=== PATIENT | male | born 1960 | race Caucasian/White ===

== ENCOUNTER → 2017-10-04 09:43 | Outpatient (CLI) | payer OTHER, SELFPAY ==
--- NOTE | 2017-10-04 09:51 | XR_ITS ---
XR chest 2V HISTORY: ITS.REASON: COUGH,COPD,CAD,TOB. USE ORDERING PHYSICIAN: López Woods MD PATIENT AGE: 57 years COMPARISON: 11/11/2016 FINDINGS: The cardiomediastinal silhouette and pulmonary vascularity are within normal limits. The lungs are clear without infiltrates, suspicious nodules, or pleural effusions. There is chronic blunting of the right CP angle. Changes of COPD No acute bony abnormalities. IMPRESSION: No change with no acute finding Chronic change with COPD and blunting of the right CP angle
== END ==
PROVIDERS: PCP Nurse Practitioner Family; Visit Provider Internal Medicine
DX: R05 Cough (principal); J44.9 Chronic obstructive pulmonary disease, unspecified; I25.10 Atherosclerotic heart disease of native coronary artery without angina pectoris; Z72.0 Tobacco use; R09.89 Other specified symptoms and signs involving the circulatory and respiratory systems
CPT/HCPCS: 71046

== ENCOUNTER → 2018-01-03 08:49 | Outpatient (CLI) | payer OTHER, SELFPAY ==
[2018-01-03 11:21] LABS: Alanine Aminotransferase 38 U/L (12-78); Albumin Level 3.8 gm/dL (3.4-5.0); Aspartate Amino Transferase 26 U/L (15-37); Bilirubin,Direct 0.2 mg/dL (0.0-0.2); Bilirubin,Indirect 0.3 mg/dL (0.0-0.9); Bilirubin,Total 0.5 mg/dL (0.2-1.0); Cholesterol 131 mg/dL (140-200); HDL Cholesterol 27 mg/dL (27-67); LDL Cholesterol 67 mg/dL (0-130); Total Protein,Serum 7.5 gm/dL (6.4-8.2); Triglycerides 185 mg/dL (30-200); VLDL Cholesterol 37 mg/dL (0-40)
[2018-01-03 11:22] LABS: Alkaline Phosphatase 89 U/L (46-116); Chol/HDL Ratio 4.9 (1-3.5)
== END ==
PROVIDERS: Visit Provider Internal Medicine
DX: I25.10 Atherosclerotic heart disease of native coronary artery without angina pectoris (principal)
CPT/HCPCS: 36415; 80061; 80076

== ENCOUNTER → 2018-03-13 07:53 | Outpatient (CLI) | payer OTHER, SELFPAY ==
[2018-03-13 08:27] LABS: Basophils # 0.1 K/mm3 (0-0.2); Eosinophils # 0.4 K/mm3 (0.0-0.4); Eosinophils % 3.1 % (0.1-12.0); Hematocrit 54.3 % (42.0-52.0); Hemoglobin 17.5 g/dL (14.1-18.0); Lymphocytes # 5.3 K/mm3 (0.7-4.5); Lymphocytes % 44.3 K/mm3 (10-50); Mean Corpuscular HGB Conc 32.2 g/dL (31.8-35.4); Mean Corpuscular Hemoglobin 29.7 pg (27.0-31.2); Mean Corpuscular Volume 92.3 fl (80-94); Mean Platelet Volume 7.3 fl (7.4-10.4); Monocytes # 0.7 K/mm3 (0.1-1.0); Monocytes % 6.2 % (1.7-9.3); Neutrophils # 5.4 K/mm3 (1.8-7.8); Neutrophils % 45.5 % (37.0-80.0); Platelet Count 230 K/mm3 (142-424); Red Blood Count 5.88 M/mm3 (4.60-6.20); Red Cell Distribution Width 14.6 % (11.5-17.5); White Blood Count 11.9 K/mm3 (4.8-10.8)
[2018-03-13 08:41] LABS: Hemoglobin A1C 7.3 % (0.0-7.0)
[2018-03-13 09:53] LABS: Alanine Aminotransferase 36 U/L (12-78); Albumin Level 3.6 gm/dL (3.4-5.0); Alkaline Phosphatase 88 U/L (46-116); Anion Gap 12.9 mEq/L (5-15); Aspartate Amino Transferase 18 U/L (15-37); Bilirubin,Total 0.5 mg/dL (0.2-1.0); Blood Urea Nitrogen 26 mg/dL (7-18); Calcium 9.4 mg/dL (8.5-10.1); Carbon Dioxide 29 mmol/L (21.0-32.0); Chloride 108 mmol/L (98-107); Creatinine,Serum 1.12 mg/dL (0.70-1.30); Estimated Glomerular Filt Rate 68 ml/min (>60); GFR (African American) 82 ML/MIN (>60); Globulin 3.5 gm/dl (1.3-3.2); Glucose 134 mg/dL (74-106); Potassium 4.9 mmoL/L (3.5-5.1); Sodium 145 mmol/L (136-145); Thyroid Stimulating Hormone 1.59 uIU/ml (0.358-3.740); Total Protein,Serum 7.1 gm/dL (6.4-8.2)
[2018-03-14 19:22] LABS: Microalbumin, Urine 16.2 ug/mL (Not Estab.)
[2018-03-15 06:34] LABS: Vitamin D 25 Hydroxy 32.7 ng/mL (30.0-100.0)
== END ==
PROVIDERS: Visit Provider Nurse Practitioner Family
DX: E11.8 Type 2 diabetes mellitus with unspecified complications (principal)
CPT/HCPCS: 36415; 80053; 82043; 82652; 83036; 84436; 84443; 85025

== ENCOUNTER → 2018-04-14 09:35 | Outpatient (CLI) | payer OTHER, SELFPAY ==
--- NOTE | 2018-04-14 09:37 | XR_ITS ---
XR foot wt bearing RT 3V HISTORY: ITS.REASON: pain ORDERING PHYSICIAN: Natalie Deleon DPM PATIENT AGE: 57 years COMPARISON: None FINDINGS: There are mild osteoarthritic changes of the first interphalangeal joint with mild bony hypertrophy. Normal alignment. No fracture or dislocation or other significant anomalies. 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
--- NOTE | 2018-04-14 09:37 | XR_ITS ---
XR foot wt bearing LT 3V HISTORY: ITS.REASON: pain ORDERING PHYSICIAN: Natalie Deleon DPM PATIENT AGE: 57 years COMPARISON: None FINDINGS: No fracture or dislocation. No lytic or blastic change. There is normal mineralization.. Minimal osteoarthritic changes are present at the first metatarsal tarsal joint. Lordotic density involving the anterior aspect of the calcaneus at 9 mm and may be due to a bone island. Small calcaneal spur and kidneys and there is a fight is present. There is normal alignment. IMPRESSION: 1. Minimal osteoarthritic change of the first metatarsal tarsal joint. 2. Bone island of the calcaneus
== END ==
PROVIDERS: Visit Provider Podiatrist
DX: M79.673 Pain in unspecified foot (principal)
CPT/HCPCS: 73630

== ENCOUNTER → 2018-05-03 09:34 | Outpatient (CLI) | payer OTHER, SELFPAY ==
--- NOTE | 2018-05-03 09:37 | US_ITS ---
US Arterial Ankle Brachial Ind History: Bilateral rest pain, bilateral claudication ITS.REASON: Skin Changes, diabetes, hyperlipidemia, peripheral vascular disease ORDERING PHYSICIAN: Natalie Deleon DPM PATIENT AGE: 57 years COMPARISON: 04/26/2017 TECHNIQUE: Segmental pressures obtained of both right and left leg. These are compared to brachial blood pressure to yield index at each level sampled including summary ERNST. The data sheets from the procedure are available in PACS FINDINGS Rest study only performed today No prior studies available for comparison. Blood pressures reported are in millimeters mercury. RIGHT LEG ERNST = 1.0. RIGHT LEG TBI=0.9 Brachial BP: 130 Thigh BP: 120 Calf BP: 160 Ankle PT: 127 Ankle DP : 102 Digit =120 LEFT LEG ERNST = 0.9 LEFT LEG TBI= 0.8 Brachial BPD: 130 Thigh BP: 173 Calf BP: 128 Ankle PT:122 Ankle DP: 113 Digit = 98 Pulses and waveforms: Normal IMPRESSION: The ABIs as reported above are within normal limits. Waveforms and pulses are also unremarkable. Overall no significant change from the previous exam
== END ==
PROVIDERS: PCP Nurse Practitioner Family; Visit Provider Podiatrist
DX: R68.89 Other general symptoms and signs (principal); R23.9 Unspecified skin changes
CPT/HCPCS: 93922

== ENCOUNTER → 2018-05-30 07:46 | Outpatient (CLI) | payer OTHER, SELFPAY ==
[2018-05-30 08:01] LABS: Basophils # 0.1 K/mm3 (0-0.2); Eosinophils # 0.4 K/mm3 (0.0-0.4); Eosinophils % 2.6 % (0.1-12.0); Hematocrit 52.7 % (42.0-52.0); Hemoglobin 17.3 g/dL (14.1-18.0); Lymphocytes # 4.7 K/mm3 (0.7-4.5); Lymphocytes % 34.3 K/mm3 (10-50); Mean Corpuscular HGB Conc 32.8 g/dL (31.8-35.4); Mean Corpuscular Hemoglobin 30.8 pg (27.0-31.2); Mean Corpuscular Volume 93.8 fl (80-94); Mean Platelet Volume 7.2 fl (7.4-10.4); Monocytes # 0.8 K/mm3 (0.1-1.0); Monocytes % 6.1 % (1.7-9.3); Neutrophils # 7.7 K/mm3 (1.8-7.8); Neutrophils % 56.1 % (37.0-80.0); Platelet Count 248 K/mm3 (142-424); Red Blood Count 5.62 M/mm3 (4.60-6.20); Red Cell Distribution Width 14.4 % (11.5-17.5); White Blood Count 13.7 K/mm3 (4.8-10.8)
== END ==
PROVIDERS: PCP Nurse Practitioner Family; Visit Provider Nurse Practitioner Family
DX: R06.00 Dyspnea, unspecified (principal)
CPT/HCPCS: 36415; 85025

== ENCOUNTER → 2018-06-14 14:15 | Outpatient (REF) | payer OTHER, SELFPAY ==
[2018-06-14 20:41] LABS: Basophils # 0.1 K/mm3 (0-0.2); Eosinophils # 0.2 K/mm3 (0.0-0.4); Eosinophils % 1.8 % (0.1-12.0); Hematocrit 50.9 % (42.0-52.0); Hemoglobin 17.1 g/dL (14.1-18.0); Lymphocytes # 4.4 K/mm3 (0.7-4.5); Lymphocytes % 39.8 K/mm3 (10-50); Mean Corpuscular HGB Conc 33.5 g/dL (31.8-35.4); Mean Corpuscular Hemoglobin 31.7 pg (27.0-31.2); Mean Corpuscular Volume 94.5 fl (80-94); Mean Platelet Volume 8.8 fl (7.4-10.4); Monocytes # 0.8 K/mm3 (0.1-1.0); Neutrophils # 5.6 K/mm3 (1.8-7.8); Neutrophils % 50.4 % (37.0-80.0); Platelet Count 259 K/mm3 (142-424); Red Blood Count 5.38 M/mm3 (4.60-6.20); Red Cell Distribution Width 14.3 % (11.5-17.5)
== END ==
LOC: LAB 14:15
PROVIDERS: PCP Physician Assistant; Visit Provider Physician Assistant
DX: I11.9 Hypertensive heart disease without heart failure (principal); I25.10 Atherosclerotic heart disease of native coronary artery without angina pectoris
CPT/HCPCS: 85025

== ENCOUNTER → 2018-07-11 07:43 | Outpatient (CLI) | payer OTHER, SELFPAY ==
[2018-07-11 09:19] LABS: Anion Gap 13.1 mEq/L (5-15); Blood Urea Nitrogen 25 mg/dL (7-18); Calcium 9.1 mg/dL (8.5-10.1); Carbon Dioxide 29 mmol/L (21.0-32.0); Chloride 98 mmol/L (98-107); Creatinine,Serum 1.07 mg/dL (0.70-1.30); Estimated Glomerular Filt Rate 71 ml/min (>60); GFR (African American) 87 ML/MIN (>60); Potassium 4.1 mmoL/L (3.5-5.1); Sodium 136 mmol/L (136-145)
[2018-07-11 10:05] LABS: Glucose 245 mg/dL (74-106)
== END ==
PROVIDERS: Visit Provider Urology
DX: I51.9 Heart disease, unspecified (principal)
CPT/HCPCS: 36415; 80048

== ENCOUNTER → 2018-10-20 07:27 | Outpatient (CLI) | payer OTHER, SELFPAY ==
[2018-10-20 08:02] LABS: Basophils # 0.1 K/mm3 (0-0.2); Basophils % 1.4 % (0.1-2.0); Eosinophils # 0.3 K/mm3 (0.0-0.4); Eosinophils % 3.1 % (0.1-12.0); Hematocrit 50.8 % (42.0-52.0); Hemoglobin 17.2 g/dL (14.1-18.0); Lymphocytes # 4.4 K/mm3 (0.7-4.5); Lymphocytes % 46.2 % (10-50); Mean Corpuscular HGB Conc 33.8 g/dL (31.8-35.4); Mean Corpuscular Volume 91.7 fl (80-94); Mean Platelet Volume 7.2 fl (7.4-10.4); Monocytes # 0.6 K/mm3 (0.1-1.0); Monocytes % 6.7 % (1.7-9.3); Neutrophils # 4.1 K/mm3 (1.8-7.8); Neutrophils % 42.7 % (37.0-80.0); Platelet Count 256 K/mm3 (142-424); Red Blood Count 5.54 M/mm3 (4.60-6.20); Red Cell Distribution Width 14.2 % (11.5-17.5); White Blood Count 9.5 K/mm3 (4.8-10.8)
[2018-10-20 09:04] LABS: Hemoglobin A1C 8.9 % (0.0-7.0)
[2018-10-20 09:07] LABS: Albumin Level 3.7 gm/dL (3.4-5.0); Alkaline Phosphatase 84 U/L (46-116); Anion Gap 11.3 mEq/L (5-15); Aspartate Amino Transferase 21 U/L (15-37); Bilirubin,Total 0.4 mg/dL (0.2-1.0); Blood Urea Nitrogen 23 mg/dL (7-18); Calcium 9.5 mg/dL (8.5-10.1); Carbon Dioxide 31 mmol/L (21.0-32.0); Chloride 101 mmol/L (98-107); Chol/HDL Ratio 6.1 (1-3.5); Cholesterol 176 mg/dL (140-200); Creatinine,Serum 1.16 mg/dL (0.70-1.30); Estimated Glomerular Filt Rate 65 ml/min (>60); GFR (African American) 79 ML/MIN (>60); Globulin 3.7 gm/dl (1.3-3.2); Glucose 172 mg/dL (74-106); HDL Cholesterol 29 mg/dL (27-67); Sodium 139 mmol/L (136-145); T4 (Thyroxine) 7.6 ug/dl (4.7-13.3); Thyroid Stimulating Hormone 1.83 uIU/ml (0.358-3.740); Total Protein,Serum 7.4 gm/dL (6.4-8.2)
[2018-10-20 09:08] LABS: Triglycerides 494 mg/dL (30-200)
[2018-10-20 09:12] LABS: Alanine Aminotransferase 55 U/L (12-78); Potassium 4.3 mmoL/L (3.5-5.1)
[2018-10-21 11:03] LABS: PSA, Free 0.19 ng/mL; Prostate Specific Ag 0.5 ng/mL (0.0-4.0); Vitamin D 25 Hydroxy 28.5 ng/mL (30.0-100.0)
[2018-10-21 11:04] LABS: Microalbumin, Urine 10.4 ug/mL (Not Estab.)
== END ==
PROVIDERS: Visit Provider Physician Assistant
DX: E11.9 Type 2 diabetes mellitus without complications (principal); Z12.5 Encounter for screening for malignant neoplasm of prostate; Z79.84 Long term (current) use of oral hypoglycemic drugs
CPT/HCPCS: 36415; 80053; 80061; 82043; 82652; 83036; 84153; 84154; 84436; 84443; 85025

== ENCOUNTER → 2018-11-20 12:35 | Outpatient (CLI) | payer OTHER, SELFPAY ==
[2018-11-20 12:36] LABS: Adenovirus F 40/41, stool Not Detected (NotDetected); Astrovirus Not Detected (NotDetected); Campylobacter Not Detected (NotDetected); Clostridium Difficile A/B, PCR Not Detected (NotDetected); Cryptosporidium Not Detected (NotDetected); Cyclospora Cayetanesis Not Detected (NotDetected); Entamoeba histolytica Not Detected (NotDetected); Enteroaggregative E coli Not Detected (NotDetected); Enteropathogenic E coli Not Detected (NotDetected); Enterotoxigenic E coli Not Detected (NotDetected); Giardia lamblia Not Detected (NotDetected); Norovirus Not Detected (NotDetected); Plesimonas Shigalloides, PCR Not Detected (NotDetected); Rotavirus A Not Detected (NotDetected); Salmonella, PCR Not Detected (NotDetected); Sapovirus Not Detected (NotDetected); Shiga-like toxin E coli Not Detected (NotDetected); Shigella Enterovasive E coli Not Detected (NotDetected); Vibrio Cholerae Not Detected (NotDetected); Vibrio, PCR Not Detected (NotDetected); Yersinia Entercolitica, PCR Not Detected (NotDetected)
== END ==
PROVIDERS: Visit Provider Nurse Practitioner Family
DX: R19.7 Diarrhea, unspecified (principal)
CPT/HCPCS: 87507

== ENCOUNTER → 2018-12-15 12:27 | Outpatient (CLI) | payer OTHER, SELFPAY ==
--- NOTE | 2018-12-15 12:35 | XR_ITS ---
XR ribs BI min 4V w CXR1V Ordering Physician: Roque Serrano APRN Patient Age: 58 years: Male HISTORY: ITS.REASON: rib pain Injury to left ribs coffee 2 weeks ago now has injury to right ribs coffee past 2 days. Thus Bilateral ribs TECHNIQUE: Oblique views of both right and left ribs performed along with frontal view chest above and below diaphragm COMPARISON :Previous 11/30/2018 CXR FINDINGS LEFT RIBS appear intact and stable with no acute fracture evident. No changes previous studies. The slight undulation at the costochondral junctions at lower ribs appears stable and overall within normal limits. RIGHT RIBS. Similar findings at the right ribs with very slight undulation of the lower rib and at costochondral junctions,; at the transition from bone to cartilage . Surprising similar appearance to what was seen on the left. . No discrete acute fracture at right ribs. No rib lesion. CXR a stable. The underlying lung frias are well expanded and clear with no pneumothorax nor pleural effusion. No active cardiopulmonary disease. Heart, sandip, and mediastinal structures satisfactory as well. Slight blunting right CP angle reflecting some mild chronic pleural changes similar to previous September 2017 CXR IMPRESSION: Ribs intact bilaterally. No recent nor acute rib fractures evident Slight blunting right CP angle reflects chronic pleural changes stable since September 2017 . Lungs clear otherwise with no active disease .
== END ==
PROVIDERS: PCP Emergency Medicine; Visit Provider Nurse Practitioner Family
DX: R07.81 Pleurodynia (principal)
CPT/HCPCS: 71111

== ENCOUNTER → 2019-01-10 13:39 | Outpatient (CLI) | payer OTHER, SELFPAY ==
[2019-01-10 13:58] LABS: Basophils # 0.1 K/mm3 (0-0.2); Basophils % 1.1 % (0.1-2.0); Eosinophils # 0.3 K/mm3 (0.0-0.4); Eosinophils % 3.1 % (0.1-12.0); Hematocrit 48.8 % (42.0-52.0); Hemoglobin 16.2 g/dL (14.1-18.0); Lymphocytes % 39.7 % (10-50); Mean Corpuscular HGB Conc 33.3 g/dL (31.8-35.4); Mean Corpuscular Hemoglobin 30.8 pg (27.0-31.2); Mean Corpuscular Volume 92.4 fl (80-94); Mean Platelet Volume 8.1 fl (7.4-10.4); Monocytes # 0.7 K/mm3 (0.1-1.0); Monocytes % 6.6 % (1.7-9.3); Neutrophils % 49.5 % (37.0-80.0); Platelet Count 286 K/mm3 (142-424); Red Blood Count 5.28 M/mm3 (4.60-6.20); Red Cell Distribution Width 14.2 % (11.5-17.5)
[2019-01-10 15:07] LABS: Alanine Aminotransferase 71 U/L (12-78); Albumin Level 3.9 gm/dL (3.4-5.0); Albumin/Globulin Ratio 1.1 (1.1-1.8); Alkaline Phosphatase 88 U/L (46-116); Anion Gap 14.5 mEq/L (5-15); Aspartate Amino Transferase 24 U/L (15-37); Bilirubin,Total 0.4 mg/dL (0.2-1.0); Blood Urea Nitrogen 19 mg/dL (7-18); Calcium 9.3 mg/dL (8.5-10.1); Carbon Dioxide 28 mmol/L (21.0-32.0); Chloride 102 mmol/L (98-107); Chol/HDL Ratio 4.6 (1-3.5); Cholesterol 137 mg/dL (140-200); Creatinine,Serum 1.15 mg/dL (0.70-1.30); Estimated Glomerular Filt Rate 66 ml/min (>60); GFR (African American) 79 ML/MIN (>60); Globulin 3.7 gm/dl (1.3-3.2); Glucose 151 mg/dL (74-106); HDL Cholesterol 30 mg/dL (27-67); LDL Cholesterol 65 mg/dL (0-130); Potassium 4.5 mmoL/L (3.5-5.1); Sodium 140 mmol/L (136-145); T4 (Thyroxine) 6.5 ug/dl (4.7-13.3); Thyroid Stimulating Hormone 1.73 uIU/ml (0.358-3.740); Total Protein,Serum 7.6 gm/dL (6.4-8.2); Triglycerides 211 mg/dL (30-200); VLDL Cholesterol 42 mg/dL (0-40)
[2019-01-10 16:16] LABS: Hemoglobin A1C 9.4 % (0.0-7.0)
[2019-01-11 10:51] LABS: Vitamin D 25 Hydroxy 45.8 ng/mL (30.0-100.0)
== END ==
PROVIDERS: Visit Provider Physician Assistant
DX: E11.9 Type 2 diabetes mellitus without complications (principal); Z79.84 Long term (current) use of oral hypoglycemic drugs; E55.9 Vitamin D deficiency, unspecified
CPT/HCPCS: 80053; 80061; 82652; 83036; 84436; 84443; 85025

== ENCOUNTER → 2019-02-16 06:41 | Outpatient (CLI) | payer OTHER, SELFPAY ==
--- NOTE | 2019-02-16 06:43 | CA_ITS ---
PROCEDURE: 2-D M-mode and color Doppler study INDICATIONS FOR THE TEST: Chest pain COPD+ Heart Murmur Tobacco SmokingEX Palpitations Fatigue Syncope Edema Hypertension Diabetes Mellitus+ Rheumatic Fever SOB FABIAN+Obesity+Hyperlipidemia+ Family History HD+ Additional History PAD definity utilized PATIENT INFORMATION HEIGHT: 72 WEIGHT: 290 GENDER: Male B/P: 143/87 2-D/M-MODE INTERPRETATION: 2-D MEASUREMENTS OBSERVED VALUES IN CMS Right Ventricular Dimension (RVDd) 2.4 Interventricular Septum (Thickness)(IVsd) 1.0 Left Ventricular Internal Dimensions(LVIDd) 4.7 Left Ventricular Posterior Wall (Thickness)(LVPWd) 1.0 Aortic Root 3.1 Aortic Cusp Separation 2.2 Left Atrial Dimensions (LAD) 4.0 2D 1. Left atrium is mildly enlarged, left ventricle is normal size, there is no concentric left ventricular hypertrophy, visually estimated ejection fraction 50%, there appears to be a discrete wall motion abnormality involving the small area of anterolateral wall. Definity contrast was utilized to delineate endocardial surfaces. There is no left ventricular thrombus seen. 2. The right atrium and right ventricle are normal size and contractility. 3. The aortic valve is minimally thickened and fibrosed. 4. The mitral and tricuspid valve leaflets are minimally thickened. 5. The pulmonic valve is poorly visualized. 6. No significant pericardial effusion noted. DOPPLER INTERROGATION: Doppler interrogation of the aortic, mitral and tricuspid valvular presence of mild mitral and tricuspid regurgitation, tricuspid regurgitation jet velocity is inadequate for calculation of the right ventricular systolic pressure, grade 1 diastolic dysfunction seen with tissue Doppler evidence of raised left atrial pressure. CONCLUSION: 1. Mildly enlarged left atrium, normal left ventricular size, visually estimated ejection fraction 50% with segmental wall motion abnormality described above, Definity contrast was utilized to delineate endocardial surfaces, there is no left ventricular thrombus seen, grade 1 diastolic dysfunction seen with tissue Doppler evidence of raised left atrial pressure. 2. Mild mitral and tricuspid regurgitation 3. No significant pericardial effusion noted.
--- NOTE | 2019-02-16 06:44 | NM_ITS ---
CARDIOLITE SPECT MYOCARDIAL PERFUSION LEXISCAN, REST AND STRESS: History: Oriented disease, obesity, hypertension, diabetes, hyperlipidemia, chest pain, shortness of breath Procedure: Patient received a 0.4 mg of intravenous Lexiscan, resting heart rate was 72 bpm resting blood pressure 131/75, Lexiscan maximum heart rate achieved was 100 bpm which is less than 85% of the maximum predicted heart rate and a blood pressure was 150/84. With Lexiscan patient complained of shortness of breath. Electrocardiogram: Resting echocardiogram showed sinus rhythm left atrial enlargement, with Lexiscan there is less than 1.[address] segment depression noted from the baseline EKG. Cardiac stress and resting SPECT images: Cardiac stress and resting SPECT images were obtained using technetium 99 sestamibi 32.4 mCi stress and 9.9 mCi at rest. Gated SPECT further analysis of segmental wall motion and calculation of the ejection fraction also done. Cardiac stress and the suspect images show decreased tracer activity in the inferior and posterobasal wall, which improves on resting images suggestive of reversible ischemia, computer derived ejection fraction 59% with moderate inferior wall hypokinesis. Right ventricle is normal size and contractility. Conclusion: 1. The EKG portion of the Lexiscan Myoview is nondiagnostic. 2. Scintigraphic evidence of reversible ischemia involving the inferior and posterobasal wall, computer derived ejection fraction is 59% with segmental wall motion abnormality described above, right ventricle is normal size and contractility. 3. Abnormal Lexiscan Myoview study.
--- NOTE | 2019-02-16 07:17 | HMH.ITSHM ---
Current Home Medications as stated by this patient Daljit Hernandez or payable representative. []BREO VENTELIN FISH OIL MULTIVITAMIN METFORMIN JANUVIA GLIPIZIDE PRASUGREL VITAMIN D2 FUROSEMIDE METOPROLOL LISINOPRIL CARTIA ATORVASTATIN ASA OMEPRAZOLE
== END ==
PROVIDERS: PCP Emergency Medicine; Visit Provider Internal Medicine
DX: I25.10 Atherosclerotic heart disease of native coronary artery without angina pectoris (principal); R06.09 Other forms of dyspnea; R07.9 Chest pain, unspecified; I11.9 Hypertensive heart disease without heart failure
CPT/HCPCS: 78452; 93017; 93306; A9502; J2785

== ENCOUNTER → 2019-05-07 09:50 | Outpatient (CLI) | payer OTHER, SELFPAY ==
--- NOTE | 2019-05-07 09:58 | ECG_ITS ---
APPROVED REPORT Exam: Resting ECG HR:65 bpm ECG Measurements Heart Rate 65 AXES AL 194 P 59 QRSd 62 QRS 41 QT 406 T 64 QTc 422 <Conclusion> Normal sinus rhythm Low voltage QRS Borderline ECG Electronically signed by : Dalton Higgins, 05/07/2019 16:15:30
== END ==
PROVIDERS: PCP Emergency Medicine; Visit Provider Surgery
DX: K81.1 Chronic cholecystitis (principal)
CPT/HCPCS: 93005

== ENCOUNTER → 2019-09-10 11:07 | Outpatient (CLI) | payer OTHER, SELFPAY ==
--- NOTE | 2019-09-10 11:12 | XR_ITS ---
PROCEDURE: XR CHEST 2V CLINICAL HISTORY: cough, congestion COMPARISON: CXR2V XR chest 2V from 10/04/2017 [id number] XR ribs LT min 3V w CXR1V from 11/30/2018 CXR2V XR chest 2V from 11/30/2018 [id number] XR ribs BI min 4V w CXR1V from 12/15/2018 FINDINGS: The cardiomediastinal silhouette and pulmonary vascularity are within normal limits. There is chronic blunting of the right CP angle. Lungs are otherwise clear. No lobar consolidation or collapse. No acute bony abnormalities. IMPRESSION: Chronic blunting of the right CP angle. No change with no acute finding Dictated by: Chapito Hinton MD 09/10/2019 16:23 Electronically signed by Chpaito Hinton MD in [place] 09/10/2019 16:23
== END ==
PROVIDERS: PCP Physician Assistant; Visit Provider Physician Assistant
DX: R05 Cough (principal)
CPT/HCPCS: 71046

== ENCOUNTER → 2019-09-24 13:35 | Outpatient (CLI) | payer OTHER, SELFPAY ==
[2019-09-24 14:20] LABS: Alanine Aminotransferase 67 U/L (12-78); Albumin Level 3.7 gm/dL (3.4-5.0); Albumin/Globulin Ratio 1.1 (1.1-1.8); Alkaline Phosphatase 82 U/L (46-116); Anion Gap 17.2 mEq/L (5-15); Aspartate Amino Transferase 30 U/L (15-37); Bilirubin,Total 0.4 mg/dL (0.2-1.0); Blood Urea Nitrogen 26 mg/dL (7-18); Calcium 9.3 mg/dL (8.5-10.1); Carbon Dioxide 27 mmol/L (21.0-32.0); Chloride 101 mmol/L (98-107); Cholesterol 204 mg/dL (140-200); Estimated Glomerular Filt Rate 62 ml/min (>60); GFR (African American) 75 ML/MIN (>60); Globulin 3.5 gm/dl (1.3-3.2); Glucose 163 mg/dL (74-106); HDL Cholesterol 34 mg/dL (27-67); LDL Cholesterol 100 mg/dL (0-130); Potassium 4.2 mmoL/L (3.5-5.1); Sodium 141 mmol/L (136-145); T4 (Thyroxine) 8.9 ug/dl (4.7-13.3); Thyroid Stimulating Hormone 1.45 uIU/ml (0.358-3.740); Total Protein,Serum 7.2 gm/dL (6.4-8.2); Triglycerides 348 mg/dL (30-200); VLDL Cholesterol 70 mg/dL (0-40)
[2019-09-24 14:23] LABS: Basophils # 0.1 K/mm3 (0-0.2); Eosinophils # 0.3 K/mm3 (0.0-0.4); Eosinophils % 2.3 % (0.1-12.0); Hematocrit 52.2 % (42.0-52.0); Lymphocytes # 4.8 K/mm3 (0.7-4.5); Lymphocytes % 38.3 % (10-50); Mean Corpuscular HGB Conc 32.5 g/dL (31.8-35.4); Mean Corpuscular Hemoglobin 29.4 pg (27.0-31.2); Mean Corpuscular Volume 90.5 fl (80-94); Mean Platelet Volume 8.7 fl (7.4-10.4); Monocytes # 0.7 K/mm3 (0.1-1.0); Monocytes % 5.8 % (1.7-9.3); Neutrophils # 6.6 K/mm3 (1.8-7.8); Neutrophils % 52.6 % (37.0-80.0); Platelet Count 246 K/mm3 (142-424); Red Blood Count 5.77 M/mm3 (4.60-6.20); Red Cell Distribution Width 14.8 % (11.5-17.5); White Blood Count 12.5 K/mm3 (4.8-10.8)
[2019-09-24 14:55] LABS: Hemoglobin A1C 8.8 % (0.0-7.0)
[2019-09-26 10:47] LABS: Vitamin D 25 Hydroxy 50.5 ng/mL (30.0-100.0)
== END ==
PROVIDERS: Visit Provider Physician Assistant
DX: E11.9 Type 2 diabetes mellitus without complications (principal); Z79.84 Long term (current) use of oral hypoglycemic drugs; Z79.899 Other long term (current) drug therapy
CPT/HCPCS: 80053; 80061; 82043; 82652; 83036; 84436; 84443; 85025

== ENCOUNTER 2020-02-05 07:42 | Day surgery (SDC) | payer OTHER, SELFPAY ==
[2020-02-05] VITALS (13 sets, daily range): BP systolic 107–186; BP diastolic 71–102; PULSE 67–79; RESP 18–20; TEMP 36.6–36.8; O2SAT 90–96; BMI 41.1
--- NOTE | 2020-02-05 07:08 | IR_ITS ---
APPROVED REPORT Patient Location: Outpatient Web Engineer: ALEKSANDR Turner RT (R) PROCEDURES Left heart catheterization Left ventriculogram Selective coronary angiogram Drug-eluting stent deployment to the mid and distal dominant right coronary INDICATION Coronary artery disease, High risk abnormal Myoview, Recurrent angina pectoris Informed consent was obtained prior to the procedure. COMPLICATIONS None Estimated Blood Loss: less than 10 ml TECHNIQUE One percent lidocaine was used to anesthetize the right groin. The right femoral artery was accessed via the Seldinger technique. A 4-Filipino sheath was placed in the right femoral artery. The JL-4 and JR-4 catheter was also used to perform left heart catheterization left ventriculogram and selective coronary angiogram. At the end of the diagnostic procedure therapeutic heparin was administered giving a therapeutic ACT. The 4 Filipino sheath was exchanged for a 6 Filipino sheath and a JR4 guide catheter was used to intubate the right coronary artery followed by a Choice PT extra-support wire. A 3 mm x 38 mm resolute samira stent was deployed at 22 bladimir reducing the severe stenosis to 0%. JONATHAN-3 flow was present before and after the procedure. At the end of the procedure the apparatus was removed the groin was reprepped gloves were changed sheath was removed good hemostasis was achieved using Perclose device patient was transferred to the postop holding in stable condition ANGIOGRAPHIC RESULTS The left main artery Normal The left anterior descending artery Has proximal and mid vessel mild 10 to 20% calcified stenoses The circumflex artery Is nondominant and has proximal sequential 30% eccentric stenoses The right coronary artery Is a large dominant vessel and has a stent in its proximal through mid segment. The midportion of the stent has 50% concentric in-stent restenosis followed by a focal concentric 90% stenosis followed by additional 50% stenoses. The RIZO ventriculogram reveals Normal 60% The left ventricular end-diastolic pressure 20 mmHg IMPRESSION Severe single-vessel coronary disease as described above Successful stenting of the mid to distal dominant right coronary artery severe disease reduced to 0% with one drug-eluting stent Normal ejection fraction Mildly elevated LVEDP consistent with diastolic dysfunction PLAN 1. Dual antiplatelet therapy 2. Cardiac rehabilitation 3. Risk factor modification 4. Avoidance of tobacco products 5. LDL less than 55 Electronically signed by : López Woods, 02/05/2020 12:22:22
[2020-02-05 08:30] LABS: Basophils # 0.1 K/mm3 (0-0.2); Eosinophils # 0.3 K/mm3 (0.0-0.4); Eosinophils % 2.7 % (0.1-12.0); Hematocrit 51.8 % (42.0-52.0); Hemoglobin 17.5 g/dL (14.1-18.0); Lymphocytes % 43.5 % (10-50); Mean Corpuscular HGB Conc 33.9 g/dL (31.8-35.4); Mean Corpuscular Hemoglobin 30.5 pg (27.0-31.2); Mean Corpuscular Volume 90.2 fl (80-94); Mean Platelet Volume 7.6 fl (7.4-10.4); Monocytes # 0.7 K/mm3 (0.1-1.0); Monocytes % 5.8 % (1.7-9.3); Neutrophils # 5.4 K/mm3 (1.8-7.8); Neutrophils % 46.9 % (37.0-80.0); Platelet Count 238 K/mm3 (142-424); Red Blood Count 5.74 M/mm3 (4.60-6.20); Red Cell Distribution Width 14.5 % (11.5-17.5); White Blood Count 11.6 K/mm3 (4.8-10.8)
[2020-02-05 08:35] LABS: Chloride 100 mmol/L (98-107); Potassium 3.6 mmoL/L (3.5-5.1); Sodium 137 mmol/L (136-145)
[2020-02-05 08:38] LABS: Anion Gap 13.6 mEq/L (5-15); Blood Urea Nitrogen 22 mg/dl (9-20); Carbon Dioxide 27 mmol/L (22.0-30.0); Creatinine Clearance Estimated 80 mL/min (50-200); Estimated Glomerular Filt Rate 69 ml/min (>60); GFR (African American) 83 ML/MIN (>60)
[2020-02-05 08:39] LABS: Calcium 9.3 mg/dl (8.4-10.2); Glucose 207 mg/dl (74-100)
--- NOTE | 2020-02-05 14:17 | HMH.PHACLD ---
Daljit Hernandez has received discharge medication counseling on the following medications: PATIENT CURRENTLY TAKING: ATORVASTATIN 80 MG HS LISINOPRIL HCTZ 20/12.5 MG BID ASPIRIN 81 MG EC DAILY METOPROLOL SUCCINATE 100 MG DAILY PRASUGREL 10 MG DAILY PATIENT INDICATED HE HAD DISCUSSED WITH OFFICE ABOUT STOPPING THE ISOSORBIDE MONONITRATE 30 MG DUE TO SEVERE MIGRAINE LIKE HEADACHES.
[2020-02-05 14:54] LABS: CATHL Activated Clotting Time > 400 SEC (74-125)
== END 2020-02-05 14:50 | disposition home or self-care (01) ==
LOC: CATHLAB 07:42
PROVIDERS: PCP Physician Assistant; Visit Provider Internal Medicine
DX: I25.118 Atherosclerotic heart disease of native coronary artery with other forms of angina pectoris (principal); T82.855A Stenosis of coronary artery stent, initial encounter; I11.0 Hypertensive heart disease with heart failure; I50.30 Unspecified diastolic (congestive) heart failure; Z72.0 Tobacco use; J44.9 Chronic obstructive pulmonary disease, unspecified; Z88.0 Allergy status to penicillin; E11.9 Type 2 diabetes mellitus without complications; Z79.51 Long term (current) use of inhaled steroids; Z79.4 Long term (current) use of insulin; Z79.82 Long term (current) use of aspirin; Z79.899 Other long term (current) drug therapy
CPT/HCPCS: 80048; 85025; 85347; 92928; 93458; 99152; C1725; C1760; C1769; C1876; C9600; J1644; Q9967

== ENCOUNTER 2020-02-14 12:54 | Outpatient (RCR) | payer OTHER, SELFPAY | END 2020-03-31 11:07 | disposition home or self-care (01) | LOC: PT 12:54 | PROVIDERS: Visit Provider Internal Medicine | DX: Z95.5 Presence of coronary angioplasty implant and graft (principal) | CPT/HCPCS: 93798 ==

== ENCOUNTER → 2020-03-17 09:08 | Outpatient (CLI) | payer OTHER, SELFPAY ==
[2020-03-17 10:10] LABS: Basophils # 0.1 K/mm3 (0-0.2); Basophils % 1.2 % (0.1-2.0); Eosinophils # 0.5 K/mm3 (0.0-0.4); Eosinophils % 5.1 % (0.1-12.0); Hematocrit 48.7 % (42.0-52.0); Hemoglobin 16.9 g/dL (14.1-18.0); Lymphocytes # 4.1 K/mm3 (0.7-4.5); Lymphocytes % 39.2 % (10-50); Mean Corpuscular HGB Conc 34.8 g/dL (31.8-35.4); Mean Corpuscular Hemoglobin 30.6 pg (27.0-31.2); Mean Platelet Volume 8.1 fl (7.4-10.4); Monocytes # 0.6 K/mm3 (0.1-1.0); Monocytes % 5.7 % (1.7-9.3); Neutrophils # 5.2 K/mm3 (1.8-7.8); Neutrophils % 48.8 % (37.0-80.0); Platelet Count 243 K/mm3 (142-424); Red Blood Count 5.54 M/mm3 (4.60-6.20); Red Cell Distribution Width 14.8 % (11.5-17.5); White Blood Count 10.6 K/mm3 (4.8-10.8)
--- NOTE | 2020-03-17 10:20 | XR_ITS ---
PROCEDURE: XR CHEST PORTABLE CLINICAL HISTORY: COVOID Cough and shortness of air COMPARISON: [id number] XR ribs BI min 4V w CXR1V from 12/15/2018 XR CHEST 2V from 09/10/2019 XR CHEST PORTABLE from 09/22/2019 FINDINGS: There is borderline cardiomegaly without failure. The lungs are clear without infiltrates, suspicious nodules, or pleural effusions. No acute bony abnormalities. IMPRESSION: No acute findings. Dictated by: Chapito Hinton MD 03/17/2020 10:47 Electronically signed by Chapito Hinton MD in [place] 03/17/2020 10:47
[2020-03-18 15:27] LABS: Covid-19 Nasal PCR Sendout Lex NOT DETECTED
== END ==
PROVIDERS: PCP Physician Assistant; Visit Provider Physician Assistant
DX: Z03.818 Encounter for observation for suspected exposure to other biological agents ruled out (principal)
CPT/HCPCS: 36415; 71045; 85025; U0004

== ENCOUNTER → 2020-03-31 08:20 | Outpatient (CLI) | payer OTHER, SELFPAY ==
[2020-03-31 09:47] LABS: Chloride 95 mmol/L (98-107); Potassium 5.1 mmoL/L (3.5-5.1); Sodium 132 mmol/L (136-145)
[2020-03-31 09:50] LABS: Blood Urea Nitrogen 35 mg/dl (9-20); Estimated Glomerular Filt Rate 57 ml/min (>60); GFR (African American) 69 ML/MIN (>60)
[2020-03-31 09:51] LABS: Anion Gap 17.1 mEq/L (5-15); Calcium 9.8 mg/dl (8.4-10.2); Carbon Dioxide 25 mmol/L (22.0-30.0); Glucose 320 mg/dl (74-100)
[2020-03-31 09:57] LABS: NT Pro Brain Natriuretic Pep. 33.4 pg/mL (0-125)
== END ==
PROVIDERS: Visit Provider Nurse Practitioner Family
DX: I25.10 Atherosclerotic heart disease of native coronary artery without angina pectoris (principal); E11.9 Type 2 diabetes mellitus without complications; E78.5 Hyperlipidemia, unspecified; I10 Essential (primary) hypertension; I11.9 Hypertensive heart disease without heart failure; I51.89 Other ill-defined heart diseases; G47.33 Obstructive sleep apnea (adult) (pediatric); J44.9 Chronic obstructive pulmonary disease, unspecified; R60.0 Localized edema; Z79.4 Long term (current) use of insulin
CPT/HCPCS: 36415; 80048; 83880

== ENCOUNTER → 2020-04-09 13:29 | Outpatient (CLI) | payer OTHER, SELFPAY ==
[2020-04-09 13:30] LABS: Microscopic, Urine URINE MICROSCOPIC (MICROSCOPIC)
[2020-04-09 13:37] LABS: Appearance,Urine CLEAR (Clear); Basophils # 0.1 K/mm3 (0-0.2); Basophils % 1.2 % (0.1-2.0); Bilirubin,Urine Negative (Negative); Blood, Urine Negative (Negative); Color,Urine YELLOW (Yellow); Eosinophils # 0.3 K/mm3 (0.0-0.4); Eosinophils % 2.7 % (0.1-12.0); Glucose,Urine (UA) 3+ (Negative); Hematocrit 49.9 % (42.0-52.0); Hemoglobin 17.1 g/dL (14.1-18.0); Ketones,Urine Negative (Negative); Leukocyte Esterase,Urine Negative (Negative); Lymphocytes # 4.6 K/mm3 (0.7-4.5); Lymphocytes % 43.8 % (10-50); Mean Corpuscular HGB Conc 34.3 g/dL (31.8-35.4); Mean Corpuscular Hemoglobin 30.5 pg (27.0-31.2); Mean Corpuscular Volume 88.8 fl (80-94); Mean Platelet Volume 9.1 fl (7.4-10.4); Monocytes # 0.6 K/mm3 (0.1-1.0); Monocytes % 5.6 % (1.7-9.3); Neutrophils # 4.9 K/mm3 (1.8-7.8); Neutrophils % 46.7 % (37.0-80.0); Nitrate,Urine Negative (Negative); Platelet Count 248 K/mm3 (142-424); Protein,Urine Negative (Negative); Red Blood Count 5.61 M/mm3 (4.60-6.20); Red Cell Distribution Width 14.5 % (11.5-17.5); Specific Gravity, Urine 1.015 (1.005-1.030); Urobilinogen,Urine 0.2 EU/dl (0.2); White Blood Count 10.6 K/mm3 (4.8-10.8)
[2020-04-09 14:00] LABS: Albumin Level 4.1 g/dl (3.5-5.0); Albumin/Globulin Ratio 1.2 (1.1-1.8); Anion Gap 19.7 mEq/L (5-15); Carbon Dioxide 20 mmol/L (22.0-30.0); Chloride 99 mmol/L (98-107); Cholesterol 279 mg/dl (140-200); Globulin 3.3 g/dL (1.3-3.2); Glucose 206 mg/dl (74-100); Potassium 4.7 mmoL/L (3.5-5.1); Sodium 134 mmol/L (136-145); Total Protein,Serum 7.4 g/dl (6.3-8.2)
[2020-04-09 14:01] LABS: Alanine Aminotransferase 80 U/L (12-78); Alkaline Phosphatase 112 U/L (38-126); Aspartate Amino Transferase 67 U/L (17-59); Bilirubin,Total 0.5 mg/dl (0.2-1.3); Blood Urea Nitrogen 36 mg/dl (9-20); Calcium 9.6 mg/dl (8.4-10.2); Chol/HDL Ratio 8.2 (1-3.5); Estimated Glomerular Filt Rate 62 ml/min (>60); GFR (African American) 75 ML/MIN (>60); HDL Cholesterol 34 mg/dl (40-60)
[2020-04-09 14:11] LABS: Direct LDL Cholesterol 37.41 mg/dL (100-129)
[2020-04-09 14:18] LABS: 25-OH Vitamin D, Total 27.1 ng/mL (30-100); T4 (Thyroxine) 7.3 ug/dl (5.53-11.0)
[2020-04-09 14:19] LABS: Bacteria,Urine Trace /lpf
[2020-04-09 14:31] LABS: Thyroid Stimulating Hormone 2.17 uIU/mL (0.465-4.68)
[2020-04-09 14:52] LABS: Triglycerides 1412 mg/dl (30-150)
[2020-04-09 14:55] LABS: Creatinine,Urine Random 94 mg/dL (Not Estab.)
[2020-04-09 15:18] LABS: Hemoglobin A1C 12.1 % (4.0-6.0)
[2020-04-09 19:07] LABS: Amylase 72 U/L (30-110); Lipase 233 U/L (23-300)
[2020-04-11 12:11] LABS: Hep A Ab, IgM Negative (Negative); Hepatitis B Core Antibody IgM Negative (Negative); Hepatitis B Surface Antigen Negative (Negative)
[2020-04-11 14:15] LABS: C-Peptide 8.9 ng/mL (1.1-4.4); Hepatitis C Antibody <0.1 s/co ratio (0.0-0.9)
== END ==
LOC: LAB.DROPOF 13:29 → LAB 17:12
PROVIDERS: Visit Provider Physician Assistant
DX: E11.40 Type 2 diabetes mellitus with diabetic neuropathy, unspecified (principal); R10.9 Unspecified abdominal pain; I51.89 Other ill-defined heart diseases; E55.9 Vitamin D deficiency, unspecified; I25.10 Atherosclerotic heart disease of native coronary artery without angina pectoris; E78.5 Hyperlipidemia, unspecified; I20.8 Other forms of angina pectoris
CPT/HCPCS: 36415; 80053; 80061; 80074; 81001; 82150; 82306; 82570; 83036; 83690; 84436; 84443; 84681; 85025

== ENCOUNTER → 2020-04-16 13:06 | Outpatient (CLI) | payer OTHER, SELFPAY | LOC: RT 13:07 → SL 13:09 | PROVIDERS: PCP Physician Assistant; Referring Provider Nurse Practitioner Family; Visit Provider Physician Assistant | DX: G47.33 Obstructive sleep apnea (adult) (pediatric) (principal) | CPT/HCPCS: 95806 ==

== ENCOUNTER → 2020-04-22 15:07 | Outpatient (CLI) | payer OTHER, SELFPAY ==
--- NOTE | 2020-04-22 15:10 | XR_ITS ---
PROCEDURE: XR FOOT RT 2V CLINICAL INDICATION: foot pain Knot on the medial arch of the foot COMPARISON: CR [id number] XR foot wt bearing LT 3V from 04/14/2018 CR [id number] XR foot wt bearing RT 3V from 04/14/2018 FINDINGS: No fracture or dislocation. No lytic or blastic change. There is normal mineralization. The joint spaces are well-preserved. No significant degenerative/arthritic changes. No erosive changes evident. Other findings:There is a type 1 os navicularis. Minimal hypertrophic changes are present involving the anterior distal tibia and the talonavicular and navicular cuneiform junction posteriorly. IMPRESSION: No acute findings. Dictated by: Chapito Hinton MD 04/22/2020 15:59 Chapito Hinton MD in [place] 04/22/2020 15:59
== END ==
PROVIDERS: PCP Physician Assistant; Visit Provider Physician Assistant
DX: M79.673 Pain in unspecified foot (principal)
CPT/HCPCS: 73620

== ENCOUNTER → 2020-04-28 07:51 | Outpatient (CLI) | payer OTHER, SELFPAY ==
--- NOTE | 2020-04-28 07:51 | CT_ITS ---
PROCEDURE: CT LUNG SCREENING CLINICAL INDICATION: nicotine dependence Tobaco use 30 pack year smoking history Quit smoking 2 years ago. COMPARISON: No exams were available for comparison TECHNIQUE: The exam was performed on a GE Light Speed [address] scanner using 2.90 mGy CTDI. A low dose helical CT CHEST was performed on a multi-detector scanner. All CT scans at the facility use one or more dose reduction, viz: automated exposure control, ma/kV adjustment per patient size (including targeted exams where dose is matched to indication, i.e. head), or iterative reconstruction technique. The LDCT was performed in a facility that meets the criteria for the screening program. Data regarding this exam was submitted to ACR which is an approved registry. The order for this exam indicates that it came as a result of a lung cancer screening counseling shard decision-making visit that included all the elements required of such a visit including smoking cessation. The radiologist interpreting this exam meets the [facility] criteria for the LDCT lung cancer screening program. The exam is reported using the Lung-RADS classification scale and reported to the ACR registry. NOTE: This study was performed for the specific purposes of lung cancer screening and is not an alternative to diagnostic chest CT. RADIATION DOSE: CTDI vol(CT dose Index-volume) = 2.90mG DLP (Dose Length Product) = 101.60 mGcm FINDINGS: No suspicious nodules identified. Changes of COPD. OTHER FINDINGS: Partially calcified mediastinal lymph nodes. Coronary artery calcifications and/or stents IMPRESSION: Lung-RADS Category 1 Negative Follow-up: Continue annual screening with LDCT in 12 months Dictated by: Chapito Hinton MD 05/06/2020 10:40 Chapito Hinton MD in [place] 05/06/2020 10:40
== END ==
PROVIDERS: PCP Physician Assistant; Visit Provider Physician Assistant
DX: Z87.891 Personal history of nicotine dependence (principal); Z12.2 Encounter for screening for malignant neoplasm of respiratory organs

== ENCOUNTER → 2020-06-09 09:07 | Outpatient (CLI) | payer OTHER, SELFPAY ==
[2020-06-09 10:32] LABS: Chloride 101 mmol/L (98-107); Potassium 4.4 mmoL/L (3.5-5.1); Sodium 137 mmol/L (136-145)
[2020-06-09 10:35] LABS: Blood Urea Nitrogen 29 mg/dl (9-20); Estimated Glomerular Filt Rate 62 ml/min (>60); GFR (African American) 75 ML/MIN (>60)
[2020-06-09 10:36] LABS: Anion Gap 14.4 mEq/L (5-15); Carbon Dioxide 26 mmol/L (22.0-30.0); Glucose 196 mg/dl (74-100)
== END ==
PROVIDERS: Visit Provider Urology
DX: R06.00 Dyspnea, unspecified (principal); E78.5 Hyperlipidemia, unspecified; I11.9 Hypertensive heart disease without heart failure; I25.10 Atherosclerotic heart disease of native coronary artery without angina pectoris; I73.9 Peripheral vascular disease, unspecified; R60.0 Localized edema; F17.200 Nicotine dependence, unspecified, uncomplicated; R40.0 Somnolence
CPT/HCPCS: 36415; 80048

== ENCOUNTER → 2020-06-12 08:52 | Outpatient (CLI) | payer OTHER, SELFPAY ==
[2020-06-12 12:09] LABS: Ferritin 129 ng/ml (17.9-464)
== END ==
PROVIDERS: Visit Provider Nurse Practitioner Family
DX: G25.81 Restless legs syndrome (principal); E83.10 Disorder of iron metabolism, unspecified
CPT/HCPCS: 36415; 82728

== ENCOUNTER → 2020-06-19 11:20 | Outpatient (CLI) | payer OTHER, SELFPAY ==
[2020-06-19 12:15] LABS: Basophils # 0.2 K/mm3 (0-0.2); Basophils % 1.4 % (0.1-2.0); Eosinophils # 0.8 K/mm3 (0.0-0.4); Eosinophils % 6.1 % (0.1-12.0); Hemoglobin 17.1 g/dL (14.1-18.0); Lymphocytes # 4.4 K/mm3 (0.7-4.5); Lymphocytes % 35.1 % (10-50); Mean Corpuscular HGB Conc 32.8 g/dL (31.8-35.4); Mean Corpuscular Hemoglobin 29.4 pg (27.0-31.2); Mean Corpuscular Volume 89.5 fl (80-94); Mean Platelet Volume 8.1 fl (7.4-10.4); Monocytes # 0.7 K/mm3 (0.1-1.0); Monocytes % 5.3 % (1.7-9.3); Neutrophils # 6.5 K/mm3 (1.8-7.8); Platelet Count 335 K/mm3 (142-424); Red Blood Count 5.81 M/mm3 (4.60-6.20); Red Cell Distribution Width 15.6 % (11.5-17.5); White Blood Count 12.5 K/mm3 (4.8-10.8)
[2020-06-28 00:07] LABS: D001-IgE D pteronyssinus 0.12 kU/L (Class 0/I); D002-IgE D farinae 0.19 kU/L (Class 0/I); E001-IgE Cat Dander <0.10 kU/L (Class 0); E005-IgE Dog Dander <0.10 kU/L (Class 0); G002-IgE Bermuda Grass <0.10 kU/L (Class 0); G006-IgE Timothy Grass <0.10 kU/L (Class 0); I006-IgE Cockroach, German <0.10 kU/L (Class 0); Immunoglobulin E, Total 123 IU/mL (6-495); M001-IgE Penicillium chrysogen <0.10 kU/L (Class 0); M002-IgE Cladosporium herbarum <0.10 kU/L (Class 0); M003-IgE Aspergillus fumigatus <0.10 kU/L (Class 0); M006-IgE Alternaria alternata <0.10 kU/L (Class 0); T001-IgE Maple/Box Elder <0.10 kU/L (Class 0); T007-IgE Oak, White <0.10 kU/L (Class 0); T008-IgE Elm, American <0.10 kU/L (Class 0); T010-IgE Walnut <0.10 kU/L (Class 0); T011-IgE Maple Leaf Sycamore <0.10 kU/L (Class 0); T014-IgE Cottonwood <0.10 kU/L (Class 0); T015-IgE Ash, White <0.10 kU/L (Class 0); T022-IgE Pecan, Hickory <0.10 kU/L (Class 0); T070-IgE White Mulberry <0.10 kU/L (Class 0); W011-IgE Thistle, Russian <0.10 kU/L (Class 0); W014-IgE Pigweed, Common <0.10 kU/L (Class 0); W016-IgE Rough Marshelder <0.10 kU/L (Class 0)
[2020-06-28 11:33] LABS: E072-IgE Mouse Urine <0.10 kU/L (Class 0)
== END ==
PROVIDERS: Visit Provider Internal Medicine Pulmonary Disease
DX: J44.9 Chronic obstructive pulmonary disease, unspecified (principal); J45.909 Unspecified asthma, uncomplicated
CPT/HCPCS: 36415; 82785; 85025; 86003

== ENCOUNTER → 2020-07-18 12:37 | Outpatient (CLI) | payer OTHER, SELFPAY | PROVIDERS: PCP Physician Assistant; Visit Provider Internal Medicine Pulmonary Disease | DX: R06.09 Other forms of dyspnea (principal) | CPT/HCPCS: 94060; 94726; 94729 ==

== ENCOUNTER 2020-08-10 14:41 | Emergency (ER) | payer OTHER, SELFPAY ==
--- NOTE | 2020-08-10 14:58 | XR_ITS ---
PROCEDURE: XR ANKLE WT BEARING RT MIN 3V CLINICAL INDICATION: FALL COMPARISON: CR XR CHEST PORTABLE from 09/22/2019 FINDINGS: There is mild diffuse soft tissue swelling laterally. The medial and lateral malleolus appear intact. There is minor spurring of the tip of the lateral malleolus and there is a tiny bone fragment adjacent to the medial malleolus. The overall ankle mortise appears grossly normal. There are tiny spurs of the calcaneus at the insertion of Achilles tendon and plantar tendon. IMPRESSION: Mild soft tissue injury, minor degenerate changes of the ankle joint as noted Dictated by: Dr. Eb Dunham MD 08/10/2020 16:20 Dr. Eb Dunham MD in [place] 08/10/2020 16:20
[2020-08-10 15:00] VITALS: BP 133/78; PULSE 78; RESP 20; TEMP 36.7; O2SAT 98; BMI 40.6
--- NOTE | 2020-08-10 15:12 | HMH.EDUTC ---
[facility] Disposition Clinical Impression: Ankle sprain Qualifiers: Encounter type: initial encounter Involved ligament of ankle: unspecified ligament Laterality: right Qualified Code(s): S93.401A - Sprain of unspecified ligament of right ankle, initial encounter Disposition: Home, Self-Care Condition on Discharge: Good Instructions: Ankle Sprain, DI for Ankle Sprain, How To Perform RICE (Rest, Ice, Compress, Elevate), How to Apply an Cb Wrap, How to Choose and Use a Cane Additional Instructions: *weight bearing as tolerated *RICE, Rest the extremity, Ice 15-20 minutes 3-4 times daily, Compress- wear the cb wrap as discussed as much as possible to help reduce swelling and pain, Elevate the extremity when at rest *Cb wrap is for support and help control swelling, use it except in the shower. Be sure that is not to tight but not to loose either *Elevate when resting *Ibuprofen as directed on package every 6-8 hours as needed for pain an inflammation. If need something more can take Tylenol in between doses of Ibuprofen to help if your doctor has told you that you can take these medications Immediately follow up with your family doctor for new or worsening of symptoms, or no noticeable improvement over the next 3-5 days Use cane to ambulate and help prevent you from falling Call back to the [facility] later this evening or tomorrow for your official Radiology reading of your foot and ankle Follow up with Podiatry as scheduled Prescriptions: Cane 1 each DIRECTED #1 each Transmission Status: Pending to [id number] Cane Tips 1 each MC DIRECTED #1 each Transmission Status: Pending to [id number] Referrals: Deborah Lyn PA [Primary Care Provider] - As needed Natalie Deleon DPM [Staff Physician] - Time of Disposition: 15:52 Medical Decision Making - Michael Inquiry Pt receiving controlled substance: No Michael was queried for this patient: No Vital Signs: 08/10/20 15:00 Temperature 98.1 F Temperature Source Oral Pulse Rate [Radial] 78 Respiratory Rate 20 Blood Pressure [Right Arm] 133/78 Blood Pressure Mean [Right Arm] 96 Blood Pressure Source [Right Arm] Automatic Cuff Blood Pressure Position [Right Arm] Sitting 02 Sat by Pulse Oximetry 98 Oxygen Delivery Method Room Air Orders (Tests/Meds): ORDERS Category Date Time Status XR ankle wt bearing RT min 3V Stat Exams 08/10/20 14:58 Taken XR foot wt bearing RT 3V Stat Exams 08/10/20 15:22 Taken - Radiology Data #1 Image(s): Foot/Toes Image Reviewed: Yes I reviewed the patient's radiology image w/the ED provider Preliminary Findings: No Fracture Seen #2 Image(s): Ankle Image Reviewed: Yes I reviewed the patient's radiology image w/the ED provider Preliminary Findings: No Fracture Seen soft tissue swelling, no acute fracture [facility] HPI - General Stated complaint: ao 08/03 injury R ankle Time Seen by Provider: 08/10/20 15:12 Mode of Arrival: Ambulatory Source of Information: Patient Limitations: No Limitations Description of Symptoms (Recalled from Triage Doc. by RN): TWISTED RIGHT ANKLE LAST TUESDAY HEENT Symptoms (Recalled from RN notes): No Resp Symptoms (Recalled from RN notes): No Skin Symptoms (Recalled from RN notes): No MS Symptoms (Recalled from RN notes): Yes Functional Status (Recalled from RN notes): WNL - History of Present Illness Provider Complaint: Patient states that he was putting up [employer] lights last week when he slipped and missed a step twisted his right ankle and fell State that ever since he has been having bruising, and swelling and pain when he walks on it States that he was trying to wait until he seen the foot doctor on Tue but his made him come on to get it checked - Related Data Home Medications Medication Instructions Recorded Confirmed omega 0-ohq-bkd-fish oil 1,000 mg 1 cap PO DAILY 09/19/17 07/21/20 (120 mg-180 mg) capsule multivitamin 1 tab PO QAM 10/04/17
--- NOTE | 2020-08-10 15:22 | XR_ITS ---
PROCEDURE: XR FOOT WT BEARING RT 3V CLINICAL INDICATION: foot pain COMPARISON: No exams were available for comparison FINDINGS: No fracture or dislocation. No lytic or blastic change. There is normal mineralization. There is narrowing and spurring of the IP joint of the great toe. There is a small accessory navicular bone. The plantar arch is normal. Tiny spurs of the calcaneus are noted both at the insertion of Achilles tendon and plantar tendon. There is a small bony ossicle just anterior to the plafond of the talus. IMPRESSION: Minor osteoarthritic change IP joint great toe Dictated by: Dr. Eb Dunham MD 08/10/2020 16:22 Dr. Eb Dunham MD in [place] 08/10/2020 16:22
[2020-08-10 15:58] VITALS: BP 133/78; PULSE 78; RESP 20; TEMP 36.7; O2SAT 98
== END 2020-08-10 15:59 | disposition home or self-care (01) ==
PROVIDERS: Emergency Provider Nurse Practitioner; PCP Physician Assistant
DX: S93.401A Sprain of unspecified ligament of right ankle, initial encounter (principal); X50.1XXA Overexertion from prolonged static or awkward postures, initial encounter; Y92.019 Unspecified place in single-family (private) house as the place of occurrence of the external cause; J44.9 Chronic obstructive pulmonary disease, unspecified; I10 Essential (primary) hypertension; K21.9 Gastro-esophageal reflux disease without esophagitis; E78.5 Hyperlipidemia, unspecified; E11.9 Type 2 diabetes mellitus without complications; I25.10 Atherosclerotic heart disease of native coronary artery without angina pectoris; Z87.891 Personal history of nicotine dependence; Z88.0 Allergy status to penicillin
CPT/HCPCS: 29515; 73610; 73630; 99201

== ENCOUNTER → 2020-09-08 09:32 | Outpatient (CLI) | payer OTHER, SELFPAY | PROVIDERS: PCP Physician Assistant; Visit Provider Physician Assistant | DX: R00.2 Palpitations (principal); I49.1 Atrial premature depolarization | CPT/HCPCS: 93225; 93226 ==

== ENCOUNTER → 2021-01-14 17:18 | Outpatient (CLI) | payer OTHER, SELFPAY ==
[2021-01-14 18:26] LABS: Alanine Aminotransferase 69 U/L (12-78); Albumin Level 4.8 g/dl (3.5-5.0); Albumin/Globulin Ratio 1.5 (1.1-1.8); Alkaline Phosphatase 109 U/L (38-126); Anion Gap 14.4 mEq/L (5-15); Aspartate Amino Transferase 46 U/L (17-59); Bilirubin,Total 0.8 mg/dl (0.2-1.3); Blood Urea Nitrogen 28 mg/dl (9-20); Calcium 9.9 mg/dl (8.4-10.2); Carbon Dioxide 25 mmol/L (22.0-30.0); Chloride 105 mmol/L (98-107); Chol/HDL Ratio 6.8 (1-3.5); Cholesterol 169 mg/dl (140-200); Estimated Glomerular Filt Rate 62 ml/min (>60); GFR (African American) 75 ML/MIN (>60); Globulin 3.2 g/dL (1.3-3.2); Glucose 146 mg/dl (74-100); HDL Cholesterol 25 mg/dl (40-60); Potassium 4.4 mmoL/L (3.5-5.1); Sodium 140 mmol/L (136-145); Triglycerides 323 mg/dl (30-150); VLDL Cholesterol 65 mg/dL (0-40)
[2021-01-14 18:31] LABS: Basophils # 0.1 K/mm3 (0-0.2); Basophils % 1.1 % (0.1-2.0); Eosinophils # 0.1 K/mm3 (0.0-0.4); Eosinophils % 1.1 % (0.1-12.0); Hematocrit 52.4 % (42.0-52.0); Hemoglobin 17.3 g/dL (14.1-18.0); Lymphocytes # 4.1 K/mm3 (0.7-4.5); Lymphocytes % 39.2 % (10-50); Mean Corpuscular Hemoglobin 29.1 pg (27.0-31.2); Mean Corpuscular Volume 88.4 fl (80-94); Mean Platelet Volume 8.7 fl (7.4-10.4); Monocytes # 0.7 K/mm3 (0.1-1.0); Monocytes % 6.2 % (1.7-9.3); Neutrophils # 5.5 K/mm3 (1.8-7.8); Neutrophils % 52.5 % (37.0-80.0); Platelet Count 273 K/mm3 (142-424); Red Blood Count 5.93 M/mm3 (4.60-6.20); Red Cell Distribution Width 15.1 % (11.5-17.5); White Blood Count 10.5 K/mm3 (4.8-10.8)
[2021-01-14 18:37] LABS: Direct LDL Cholesterol 74.52 mg/dL (100-129)
[2021-01-14 18:42] LABS: 25-OH Vitamin D, Total 61.1 ng/mL (30-100)
[2021-01-14 18:46] LABS: Hemoglobin A1C 7.4 % (4.0-6.0); Microalbumin < 6.000 mg/L (0-16.7)
[2021-01-14 18:58] LABS: Prostate Specific Ag Screen 0.4 ng/ml (0.0-4.0); Thyroid Stimulating Hormone 1.04 uIU/mL (0.465-4.68)
== END ==
PROVIDERS: Visit Provider Physician Assistant
DX: R06.02 Shortness of breath (principal); I25.10 Atherosclerotic heart disease of native coronary artery without angina pectoris; I11.9 Hypertensive heart disease without heart failure; E11.9 Type 2 diabetes mellitus without complications; E78.5 Hyperlipidemia, unspecified; E55.9 Vitamin D deficiency, unspecified; R53.83 Other fatigue; Z12.5 Encounter for screening for malignant neoplasm of prostate; Z79.4 Long term (current) use of insulin
CPT/HCPCS: 80053; 80061; 82043; 82306; 83036; 84439; 84443; 85025; G0103

== ENCOUNTER → 2021-01-27 08:31 | Outpatient (CLI) | payer OTHER, SELFPAY ==
--- NOTE | 2021-01-27 08:31 | CT_ITS ---
PROCEDURE: CT ABDOMEN PELVIS WO CON CLINICAL INDICATION: LUQ pain Upper abdominal pain and distension COMPARISON: No exams were available for comparison TECHNIQUE: Axial images obtained with sagittal and coronal reformats. All CT scans at the facility use one or more dose reduction, viz: automated exposure control, ma/kV adjustment per patient size (including targeted exams where dose is matched to indication, i.e. head), or iterative reconstruction technique. FINDINGS: LOWER THORAX: Coronary artery stents in the RCA ABDOMEN & PELVIS: The liver, gallbladder, spleen, adrenal glands, pancreas, have an unremarkable appearance. No renal or ureteral calculi. No hydronephrosis. No intestinal obstruction or free air. Unremarkable appearing appendix. There are few colonic diverticula but no evidence of diverticulitis. No pelvic mass or abnormal fluid collection. Urinary bladder has an unremarkable appearance. There are mild degenerative changes in the lumbar spine and lower thoracic spine. Mild osteoarthritic changes of the hips. There are several small sclerotic foci within the pelvis and proximal femurs which may represent bone islands. There is some mild thickening of the subcutaneous fat in the umbilical area. There is a tiny umbilical hernia. This contains fat. IMPRESSION: No definite acute finding. There are few scattered colonic diverticula but no evidence of diverticulitis. Tiny umbilical hernia containing fat with some minimal haziness of the subcutaneous fat at the umbilical region. Please correlate clinically the possibility of mild cellulitis . Dictated by: Chapito Hinton MD 01/28/2021 10:56 Chapito Hinton MD in [place] 01/28/2021 10:56
== END ==
PROVIDERS: PCP Physician Assistant; Visit Provider Physician Assistant
DX: R10.12 Left upper quadrant pain (principal)
CPT/HCPCS: 74176

== ENCOUNTER → 2021-04-15 08:09 | Outpatient (CLI) | payer OTHER, SELFPAY ==
--- NOTE | 2021-04-15 08:09 | CT_ITS ---
PROCEDURE: CT LUNG SCREENING CLINICAL INDICATION: lung cancer screening COMPARISON: CT CT LUNG SCREENING from 04/28/2020 TECHNIQUE: The exam was performed on a GE Light Speed [address] scanner using 2.90 mGy CTDI. A low dose helical CT CHEST was performed on a multi-detector scanner. All CT scans at the facility use one or more dose reduction, viz: automated exposure control, ma/kV adjustment per patient size (including targeted exams where dose is matched to indication, i.e. head), or iterative reconstruction technique. The LDCT was performed in a facility that meets the criteria for the screening program. Data regarding this exam was submitted to [employer] which is an approved registry. The order for this exam indicates that it came as a result of a lung cancer screening counseling shard decision-making visit that included all the elements required of such a visit including smoking cessation. The radiologist interpreting this exam meets the [facility] criteria for the LDCT lung cancer screening program. The exam is reported using the Lung-RADS classification scale and reported to the ACR registry. NOTE: This study was performed for the specific purposes of lung cancer screening and is not an alternative to diagnostic chest CT. RADIATION DOSE: CTDI vol(CT dose Index-volume) = 2.90mG DLP (Dose Length Product) = 103.16 mGcm FINDINGS: No suspicious pulmonary nodules apparent. COPD changes. OTHER FINDINGS: Coronary artery calcification and/or stents noted. IMPRESSION: Lung-RADS Category 1 Negative Follow-up: Continue annual screening with LDCT in 12 months Dictated by: Chapito Hinton MD 04/20/2021 09:20 Chapito Hinton MD in [place] 04/20/2021 09:20
== END ==
PROVIDERS: PCP Physician Assistant; Visit Provider Internal Medicine Pulmonary Disease
DX: Z87.891 Personal history of nicotine dependence (principal); Z12.2 Encounter for screening for malignant neoplasm of respiratory organs
CPT/HCPCS: 71271

== ENCOUNTER → 2021-06-17 18:26 | Outpatient (CLI) | payer OTHER, SELFPAY ==
[2021-06-17 19:04] LABS: Alanine Aminotransferase 72 U/L (12-78); Albumin Level 4.5 g/dl (3.5-5.0); Albumin/Globulin Ratio 1.4 (1.1-1.8); Alkaline Phosphatase 101 U/L (38-126); Anion Gap 15.3 mEq/L (5-15); Aspartate Amino Transferase 51 U/L (17-59); Bilirubin,Total 0.6 mg/dl (0.2-1.3); Blood Urea Nitrogen 24 mg/dl (9-20); Calcium 9.8 mg/dl (8.4-10.2); Carbon Dioxide 25 mmol/L (22.0-30.0); Chloride 103 mmol/L (98-107); Chol/HDL Ratio 5.6 (1-3.5); Cholesterol 146 mg/dl (140-200); Estimated Glomerular Filt Rate 57 ml/min (>60); GFR (African American) 68 ML/MIN (>60); Globulin 3.3 g/dL (1.3-3.2); Glucose 141 mg/dl (74-100); HDL Cholesterol 26 mg/dl (40-60); Potassium 4.3 mmoL/L (3.5-5.1); Sodium 139 mmol/L (136-145); Total Protein,Serum 7.8 g/dl (6.3-8.2); Triglycerides 347 mg/dl (30-150); VLDL Cholesterol 69 mg/dL (0-40)
[2021-06-17 19:12] LABS: Hemoglobin A1C 6.9 % (4.0-6.0)
[2021-06-17 19:15] LABS: Direct LDL Cholesterol 63.06 mg/dL (100-129)
[2021-06-17 19:20] LABS: Basophils # 0.1 K/mm3 (0-0.2); Basophils % 1.1 % (0.1-2.0); Eosinophils # 0.1 K/mm3 (0.0-0.4); Eosinophils % 1.2 % (0.1-12.0); Hematocrit 51.6 % (42.0-52.0); Lymphocytes # 4.1 K/mm3 (0.7-4.5); Lymphocytes % 38.2 % (10-50); Mean Corpuscular Hemoglobin 30.8 pg (27.0-31.2); Mean Corpuscular Volume 93.5 fl (80-94); Mean Platelet Volume 8.4 fl (7.4-10.4); Monocytes # 0.6 K/mm3 (0.1-1.0); Monocytes % 5.9 % (1.7-9.3); Neutrophils # 5.7 K/mm3 (1.8-7.8); Neutrophils % 53.6 % (37.0-80.0); Platelet Count 304 K/mm3 (142-424); Red Blood Count 5.52 M/mm3 (4.60-6.20); Red Cell Distribution Width 14.4 % (11.5-17.5); White Blood Count 10.6 K/mm3 (4.8-10.8)
[2021-06-17 19:21] LABS: 25-OH Vitamin D, Total 68.7 ng/mL (30-100)
[2021-06-17 19:35] LABS: Thyroid Stimulating Hormone 1.14 uIU/mL (0.465-4.68)
== END ==
PROVIDERS: Visit Provider Physician Assistant
DX: E11.40 Type 2 diabetes mellitus with diabetic neuropathy, unspecified (principal); E66.9 Obesity, unspecified; Z79.4 Long term (current) use of insulin; Z68.41 Body mass index [BMI] 40.0-44.9, adult
CPT/HCPCS: 80053; 80061; 82306; 83036; 84443; 85025

== ENCOUNTER → 2021-07-09 13:19 | Outpatient (CLI) | payer OTHER, SELFPAY | PROVIDERS: PCP Physician Assistant; Visit Provider Internal Medicine Pulmonary Disease | DX: R06.00 Dyspnea, unspecified (principal) | CPT/HCPCS: 94070; 95070; J7674 ==

== ENCOUNTER → 2022-01-22 06:38 | Outpatient (CLI) | payer OTHER, SELFPAY ==
--- NOTE | 2022-01-22 06:39 | CA_ITS ---
APPROVED REPORT Exam: Pharmacologic Technologist: Bernadette Casillas, Ht: 6 ft 0 in Wt: 298 lbs BSA: 2.52 m2 HR: 62 bpm BP: 125/69 mmHg Medical History Medications: Lisinopril,,,,, Omeprazole,,,,, Aspirin,,,,, Metformin,,,,, Atorvastatin,,,,, Flonase,,,,, Albuterol,,,,, ZYRTEC,,,,, ADVAIR,,,,, AmiTRIPTYLINE,,,,, Singulair,,,,, Vitamin D2,,,,, Stress Test Details Test: LEXISCAN HR Resting HR: 67 bpm Max Heart Rate (APMHR): 160.091763 bpm Max HR Achieved: 83 bpm Target HR (85% APMHR): 136.143448 bpm % of APMHR: 51.88 Recovery HR: 70 bpm BP Resting BP: 125/69 mmHg Max BP: 158/74 mmHg Recovery BP: 138.0/70.0 mmHg ECG Clinical Exercise duration: 04:00 min Highest Stage Achieved: Stress ECG Conclusion Symptoms: SOB w/ Lexiscan. No chest pain. Arrythmias/Ectopy: None ST-T Changes: <1.5mm ST Segment changes. Test Summary REST . . . . . . . Resting REST 12:19 . . 67 . 125/ 69 . . Stage 1 01:00 . . 80 . . . . Stage 2 01:00 . . 81 . 158/ 74 . . Stage 3 01:00 . . 76 . 138/ 73 . . Stage 4 01:00 . . 74 . 134/ 69 . Stop exercise at 04:00 RECOVERY 01:00 . . 72 . . . . RECOVERY 02:00 . . 71 . 132/ 75 . . RECOVERY 02:37 . . 71 . 138/ 70 . . Electronically signed by : Catrachito Prakash MD 01/22/2022 12:50:38
--- NOTE | 2022-01-22 06:39 | NM_ITS ---
APPROVED REPORT Exam: Nuclear Stress Test Indication: chest pain..short of breath..fatigue Patient Location: Outpatient Stress Tech: Bernadette Jack PA Tech:ALEKSANDR Galeas RT(R)(N) Ht: 6 ft 0 in Wt: 298 lbs HR: 67 bpm BP: 125/69 mmHg BSA: 2.52 m2 TID: 1.38 History: chest pain..short of breath..fatigue Procedure: Patient received a 0.4 mg of intravenous Lexiscan, resting heart rate 67 bpm, resting blood pressure 125/69 mmHg, with Lexiscan maximum heart rate achived was 83 bpm which is Less than 85 % of the maximum predicted heart rate and blood pressure was 158/74 mmHg. With Lexiscan, patient denied any complaint of chest pain. Electrocardiogram Resting electrocardiogram showed sinus rhythm, with Lexiscan there is less than 1.[address] segment depression noted from the baseline EKG. The EKG portion of the Lexiscan is nondiagnostic. Cardiac Stress and Resting SPECT Images: Cardiac Stress and Resting SPECT images were obtained using technetium 99m Myoview 30.9 mCi stress and 10.78 mCi at rest. Gated SPECT analysis of segmental wall motion and calculation of the ejection fraction also done. Cardiac stress and rest SPECT may show fixed defect in the inferior wall with normal contractility gated SPECT is likely secondary to soft tissue attenuation, no reversible ischemia seen, computer derived ejection fraction is 66% with no regional wall motion abnormality, right ventricle is normal size and contractility, there is transient ischemic dilatation of the left ventricle seen, raising the concerns for presence of multivessel coronary artery disease. Conclusion: 1. The EKG portion of the Lexiscan is nondiagnostic. 2. No scintigraphic evidence of reversible ischemia seen, computer derived ejection fraction is 60% with no regional wall motion abnormality, right ventricle is normal size and contractility, there is transient ischemic dilatation of the left ventricle seen raising the concern for presence of balanced ischemia or multivessel coronary artery disease. 3. Abnormal Lexiscan Myoview study. Electronically signed by : Catrachito Prakash MD 01/22/2022 12:54:31
--- NOTE | 2022-01-22 06:39 | CA_ITS ---
APPROVED REPORT EXAM: Comprehensive 2D, Doppler, and color-flow Echocardiogram Sign Language Instructor: Allison Lindsey RT(R) Ht: 6 ft 1 in Wt: 300lbs BSA: 2.56 BP: 125/58 mmHg Indications: COPD, SOB, PAD, hyperlipdemia, obesity, CP. M-Mode Dimensions RVDd 2.67 cm (0.9-2.6) LA Diam 3.76 cm (1.9-4.0) LVDd 3.18 cm (3.5-5.7) Ao Diam 2.73 cm (2.0-3.7) LVDs 2.31 cm (3.5-5.7) IVSd 1.03 cm (0.6-1.1) PWd 1.03 cm (0.6-1.1) EF (Teich) 54.60% FS 27.40% EDV (Teich) 40.30 mL ESV (Teich) 18.30 mL LV Diastology E Decel Time 180.00 (160-240 msec) E/A Ratio 1.03 MED E' 8.90 (< 7 cm/sec) E'/MED E' Ratio 11.54 (>14) LAT E' 9.30 (<10 cm/sec) E/LAT E' Ratio 11.04 (>14) Mitral Valve MV A Velocity 99.00 (40-130 cm/s) E/A Ratio 1.03 MV Decel. Time 180.00 (160-240 ms) Left Ventricle Technically difficult study because of the patient factors and poor acoustic windows. Left atrium is mildly enlarged, left ventricle is normal size, mild concentric left ventricular hypertrophy, estimated ejection fraction 55% with no regional wall motion abnormality, diastolic parameters are inconclusive. Right Ventricle Right atrium and right ventricle are mildly enlarged with normal contractility. Aortic Valve Aortic valve is minimally thickened and fibrosed, there is no aortic stenosis or aortic insufficiency. Mitral Valve Mitral valve grossly normal, there is trace mitral regurgitation. Tricuspid Valve Tricuspid grossly normal, there is trace tricuspid regurgitation tricuspid regurgitation jet velocity is inadequate for calculation of the right ventricular systolic pressure. Pulmonic Valve Pulmonic valve is poorly visualized. Great Vessels Aortic root is normal size. Inferior vena cava is mildly dilated without significant inspiratory collapse. Pericardium No significant pericardial effusion noted. Conclusion 1. Mild biatrial enlargement, normal left ventricular size, mild concentric left ventricular hypertrophy, estimated ejection fraction 55% with no regional wall motion abnormality, diastolic parameters are inconclusive. 2. Mildly enlarged right ventricle with normal contractility. 3. Trace mitral and tricuspid regurgitation. 4. No significant pericardial effusion noted. 5. Inferior vena cava is mildly dilated without significant inspiratory collapse. Electronically signed by : Catrachito Prakash MD 01/22/2022 13:03:48
== END ==
PROVIDERS: PCP Physician Assistant; Visit Provider Nurse Practitioner Family
DX: R06.00 Dyspnea, unspecified (principal); I20.9 Angina pectoris, unspecified; I11.9 Hypertensive heart disease without heart failure; E11.9 Type 2 diabetes mellitus without complications; E78.5 Hyperlipidemia, unspecified; I73.9 Peripheral vascular disease, unspecified; J44.9 Chronic obstructive pulmonary disease, unspecified; F17.200 Nicotine dependence, unspecified, uncomplicated; G47.33 Obstructive sleep apnea (adult) (pediatric); Z79.4 Long term (current) use of insulin
CPT/HCPCS: 78452; 93017; 93306; A9502; J2785

== ENCOUNTER → 2022-02-02 10:01 | Outpatient (CLI) | payer OTHER, SELFPAY ==
[2022-02-02 10:55] LABS: Basophils # 0.2 K/mm3 (0-0.2); Basophils % 1.9 % (0.1-2.0); Eosinophils # 0.2 K/mm3 (0.0-0.4); Eosinophils % 1.8 % (0.1-12.0); Hematocrit 49.7 % (42.0-52.0); Hemoglobin 16.5 g/dL (14.1-18.0); Lymphocytes # 4.2 K/mm3 (0.7-4.5); Lymphocytes % 36.9 % (10-50); Mean Corpuscular HGB Conc 33.2 g/dL (31.8-35.4); Mean Corpuscular Hemoglobin 30.6 pg (27.0-31.2); Mean Corpuscular Volume 92.2 fl (80-94); Mean Platelet Volume 8.2 fl (7.4-10.4); Monocytes # 0.7 K/mm3 (0.1-1.0); Monocytes % 6.2 % (1.7-9.3); Neutrophils # 6.1 K/mm3 (1.8-7.8); Neutrophils % 53.3 % (37.0-80.0); Platelet Count 281 K/mm3 (142-424); Red Blood Count 5.39 M/mm3 (4.60-6.20); Red Cell Distribution Width 15.1 % (11.5-17.5); White Blood Count 11.5 K/mm3 (4.8-10.8)
[2022-02-02 11:21] LABS: Chloride 103 mmol/L (98-107); Sodium 139 mmol/L (136-145)
[2022-02-02 11:22] LABS: Potassium 4.9 mmoL/L (3.5-5.1)
[2022-02-02 11:24] LABS: Blood Urea Nitrogen 27 mg/dl (9-20); Estimated Glomerular Filt Rate 68 ml/min (>60); GFR (African American) 83 ML/MIN (>60)
[2022-02-02 11:25] LABS: Anion Gap 13.9 mEq/L (5-15); Calcium 9.9 mg/dl (8.4-10.2); Carbon Dioxide 27 mmol/L (22.0-30.0); Glucose 184 mg/dl (74-100)
== END ==
PROVIDERS: PCP Physician Assistant; Visit Provider Physician Assistant
DX: Z01.812 Encounter for preprocedural laboratory examination (principal); Z20.822 Contact with and (suspected) exposure to COVID-19; R06.09 Other forms of dyspnea; R06.02 Shortness of breath; I51.7 Cardiomegaly; I20.9 Angina pectoris, unspecified; R94.30 Abnormal result of cardiovascular function study, unspecified; R60.0 Localized edema; I11.9 Hypertensive heart disease without heart failure; E11.9 Type 2 diabetes mellitus without complications; E78.5 Hyperlipidemia, unspecified; I73.9 Peripheral vascular disease, unspecified; J44.9 Chronic obstructive pulmonary disease, unspecified; F17.200 Nicotine dependence, unspecified, uncomplicated; G47.33 Obstructive sleep apnea (adult) (pediatric); Z79.4 Long term (current) use of insulin
CPT/HCPCS: 36415; 80048; 85025; C9803; U0003; U0005

== ENCOUNTER 2022-02-04 08:29 | Day surgery (SDC) | payer OTHER, SELFPAY ==
[2022-02-04] VITALS (13 sets, daily range): BP systolic 119–149; BP diastolic 66–84; PULSE 63–94; RESP 17–18; TEMP 36.7; O2SAT 91–97; BMI 40.8
--- NOTE | 2022-02-04 | IR_ITS ---
APPROVED REPORT Patient Location: Outpatient Electrogalvanizing Machine Operator: ALEKSANDR Marino RT (R) PROCEDURES Left heart catheterization Left ventriculogram Selective coronary angiogram Drug-eluting stent deployment to the proximal mid dominant right coronary INDICATION Coronary artery disease, In-stent restenosis, Higher risk abnormal Myoview, Recurrent angina pectoris, Informed consent was obtained prior to the procedure. COMPLICATIONS NONE Estimated Blood Loss: LESS THAN 10 ML TECHNIQUE One percent lidocaine was used to anesthetize the right groin. The right femoral artery was accessed via the Seldinger technique. A 4-Yi sheath was placed in the right femoral artery. The JL-4 and JR-4 catheter was also used to perform left heart catheterization left ventriculogram and selective coronary angiogram. At the end the diagnostic procedure therapeutic heparin was administered giving a therapeutic ACT and the 4 Yi sheath was exchanged for a 6 Yi sheath. A JR4 guide catheter was placed in the right coronary artery followed by a Choice PT extra-support wire. A 3.5 x 38 mm resolute [place] stent was deployed at 24 bladimir reducing the stenosis. A 3.75 x 15 mm noncompliant balloon was then placed in the proximal portion and deployed at 24 bladimir to post dilate. Excellent angiograph results were obtained JONATHAN-3 flow was present before and after the procedure. At the end the procedure the apparatus was removed the groin is reprepped closure change sheath was removed and hemostasis was achieved using TR banding patient was transferred to the postop putting in stable condition ANGIOGRAPHIC RESULTS The left main artery Normal The left anterior descending artery Has proximal 20% concentric stenosis with mid vessel 20% stenoses. The circumflex artery Nondominant with a stent in the proximal segment which has 20 to 30% in-stent restenosis The right coronary artery Is a large dominant vessel and has a stent in the proximal to mid segment. The midportion of the stent has a 70% concentric in-stent restenotic lesion. Distally there are 20 and 30% stenoses The RIZO ventriculogram reveals Preserved 60% The left ventricular end-diastolic pressure 10 mmHg IMPRESSION Severe disease in the proximal to mid dominant right coronary artery Successful stent to the proximal mid dominant right coronary artery severe disease reduced to 0% with 1 drug-eluting stent Preserved ejection fraction Normal left ventricular end-diastolic pressure PLAN 1. Dual antiplatelet therapy 2. Cardiac rehabilitation 3. Avoidance of tobacco products 4. Risk factor modification 5. LDL less than 55 to be achieved with high intensity statin Electronically signed by : López Woods MD 02/04/2022 13:16:04
[2022-02-04 11:17] LABS: CATHL Activated Clotting Time 240 SEC (74-125)
--- NOTE | 2022-02-04 14:57 | HMH.PHACLD ---
Daljit Poncey has received discharge medication counseling on the following medications: PATIENT IS CURRENTLY TAKING EFFIENT 10 MG DAILY, ASPIRIN 81 MG DAILY, ATORVASTATIN 80 MG HS, METOPROLOL SUCCINATE 100 MG DAILY, AND LISINOPRIL 40 MG DAILY. MD HAVING PATIENT HOLD METFORMIN 500 MG BID UNTIL TUESDAY DUE TO CONTRAST USE. PATIENT INDICATED HE UNDERSTANDS TO HOLD METFORMIN.
== END 2022-02-04 15:12 | disposition home or self-care (01) ==
LOC: CATHLAB 08:31
PROVIDERS: PCP Physician Assistant; Visit Provider Internal Medicine
DX: T82.855A Stenosis of coronary artery stent, initial encounter (principal); R94.39 Abnormal result of other cardiovascular function study; E11.9 Type 2 diabetes mellitus without complications; I25.118 Atherosclerotic heart disease of native coronary artery with other forms of angina pectoris; Z79.4 Long term (current) use of insulin; F17.210 Nicotine dependence, cigarettes, uncomplicated; I10 Essential (primary) hypertension; J44.9 Chronic obstructive pulmonary disease, unspecified; Z79.899 Other long term (current) drug therapy; Y83.1 Surgical operation with implant of artificial internal device as the cause of abnormal reaction of the patient, or of later complication, without mention of misadventure at the time of the procedure
CPT/HCPCS: 85347; 92928; 93458; 99152; C1725; C1760; C1769; C1876; C1894; C9600; J1644; Q9967

== ENCOUNTER → 2022-02-15 13:30 | Outpatient (CLI) | payer OTHER, SELFPAY ==
[2022-02-15 13:57] LABS: Basophils # 0.2 K/mm3 (0-0.2); Basophils % 2.2 % (0.1-2.0); Eosinophils # 0.2 K/mm3 (0.0-0.4); Eosinophils % 1.7 % (0.1-12.0); Hematocrit 50.8 % (42.0-52.0); Hemoglobin 16.8 g/dL (14.1-18.0); Lymphocytes # 4.5 K/mm3 (0.7-4.5); Lymphocytes % 41.1 % (10-50); Mean Corpuscular Hemoglobin 30.3 pg (27.0-31.2); Mean Platelet Volume 7.9 fl (7.4-10.4); Monocytes # 0.6 K/mm3 (0.1-1.0); Monocytes % 5.4 % (1.7-9.3); Neutrophils # 5.5 K/mm3 (1.8-7.8); Neutrophils % 49.6 % (37.0-80.0); Platelet Count 301 K/mm3 (142-424); Red Blood Count 5.53 M/mm3 (4.60-6.20); Red Cell Distribution Width 14.8 % (11.5-17.5)
[2022-02-15 14:33] LABS: Anion Gap 17.1 mEq/L (5-15); Blood Urea Nitrogen 34 mg/dl (9-20); Calcium 10.1 mg/dl (8.4-10.2); Carbon Dioxide 24 mmol/L (22.0-30.0); Chloride 101 mmol/L (98-107); Estimated Glomerular Filt Rate 52 ml/min (>60); GFR (African American) 63 ML/MIN (>60); Glucose 231 mg/dl (74-100); Potassium 5.1 mmoL/L (3.5-5.1); Sodium 137 mmol/L (136-145)
== END ==
PROVIDERS: PCP Physician Assistant; Visit Provider Internal Medicine
DX: I25.10 Atherosclerotic heart disease of native coronary artery without angina pectoris (principal)
CPT/HCPCS: 36415; 80048; 85025

== ENCOUNTER → 2022-04-14 15:01 | Outpatient (CLI) | payer OTHER, SELFPAY ==
--- NOTE | 2022-04-14 15:01 | CT_ITS ---
FINAL REPORT TECHNIQUE: Axial images were obtained from the lung apex to the mid abdomen by computed tomography. This study was performed with techniques to keep radiation doses as low as reasonably achievable (ALARA). Individualized dose reduction techniques using automated exposure control or adjustment of mA and/or kV according to the patient's size were employed. CLINICAL HISTORY: lung cancer screening previous smoker, for 15 years 2ppd, quit 18 years ago COMPARISON: 04/15/2021 and 04/28/2020 FINDINGS: CHEST CT LOW DOSE CTDI vol (mGy): 2.90 DLP (mGy-cm): 107.59 There is diffuse coronary artery calcification, stable. There is no axillary adenopathy. There is no hilar or mediastinal adenopathy. The heart is normal in size. There is no pericardial or pleural effusion. Lung window images demonstrate no suspicious infiltrate or nodule. There is a calcified granuloma in the medial right upper lobe. Limited images of the upper abdomen are unremarkable. IMPRESSION: Lung RADS category 1. Recommend 12 month follow-up low-dose chest CT. Reviewed, Interpreted and Dictated by Nik Grijalva III, MD Transcribed by Naz Muniz Authenticated and [facility]
== END ==
PROVIDERS: PCP Physician Assistant; Visit Provider Internal Medicine Pulmonary Disease
DX: Z87.891 Personal history of nicotine dependence (principal); Z12.2 Encounter for screening for malignant neoplasm of respiratory organs
CPT/HCPCS: 71271

== ENCOUNTER 2022-05-21 17:22 | Emergency (ER) | payer OTHER, SELFPAY ==
[2022-05-21 17:24] VITALS: BP 121/74; PULSE 65; RESP 16; TEMP 36.4; O2SAT 97; BMI 40.2
--- NOTE | 2022-05-21 17:50 | HMH.EDGENADL ---
Discharge Plan Disposition Patient Disposition: Home, Self-Care Condition: Good Chief Complaint: Recheck/Abnormal Lab/Rx Prescriptions Prescriptions: No Action omega 8-jyp-tva-fish oil [Fish Oil] 1,000 mg (120 mg-180 mg) capsule 1 cap PO DAILY multivitamin tablet 1 tab PO QAM ipratropium-albuterol 0.5 mg-3 mg(2.5 mg base)/3 mL solution for nebulization 3 ml IH QID PRN (Reason: shortness of breath or wheezing) Qty: 180 5RF isosorbide mononitrate 30 mg tablet extended release 24 hr 30 mg PO DAILY Qty: 30 5RF ranolazine [Ranexa] 500 mg tablet extended release 12 hr 500 mg PO BID Qty: 60 3RF terbinafine HCl [Antifungal (terbinafine)] 1 % cream 1 applic TP BID Qty: 30 0RF Zyrtec 10 mg capsule 10 mg PO DAILY PRN (Reason: allergy symptoms) Qty: 30 6RF insulin glargine 100 unit/mL (3 mL) insulin pen 34 unit SQ HS Label Comments: INJECT 25 UNITS SUBCUTANEOUSLY AT BEDTIME WITH POTENTIAL TITRATION TO MAX DAILY DOSE OF 50 UNITS trazodone 50 mg tablet 50 mg PO HS PRN (Reason: pain) Rx Instructions: Take 1 hour before bedtime Ozempic 1 mg/dose (4 mg/3 mL) pen injector 1 mg SQ DIRECTED amitriptyline 10 mg tablet 10 mg PO DAILY Label Comments: TAKE 1 TABLET BY MOUTH AT BEDTIME. MAY INCREASE BY 1 TAB WEEKLY IF NEEDED TO MAX DAILY DOSE OF 5 TABS (50MG) albuterol sulfate 90 mcg/actuation HFA aerosol inhaler 1 inh IH QID PRN (Reason: shortness of breath or wheezing) 90 Days Qty: 8.5 3RF fluticasone propion-salmeterol [Advair Diskus] 500-50 mcg/dose blister with device 1 inh INHALATION BID Qty: 180 3RF fluticasone propionate [Flonase Allergy Relief] 50 mcg/actuation spray,suspension 1 spray INTRANASAL BID 90 Days Qty: 48 3RF Rx Instructions: administer into each nostril montelukast [Singulair] 10 mg tablet 10 mg PO DAILY Qty: 90 3RF lidocaine HCl [Lidocaine Viscous] 2 % solution 1 applic MUCOUS MEM QID PRN (Reason: pain) Qty: 100 0RF ergocalciferol (vitamin D2) 1,250 mcg (50,000 unit) capsule See Rx Instructions .Route .COMPLEX Qty: 14 3RF Rx Instructions: Take 1 capsule by mouth once a week bumetanide 2 mg tablet See Rx Instructions .ROUTE .COMPLEX Qty: 60 0RF Dose Instruction: Take 1 tablet by mouth twice daily Rx Instructions: Take 1 tablet by mouth twice daily (DME) [employer] G6 Transmitter Device See Rx Instructions .ROUTE .COMPLEX Qty: 1 1RF Dose Instruction: USE DIRECTED TO TEST BLOOD GLUCOSE LEVEL Rx Instructions: USE DIRECTED TO TEST BLOOD GLUCOSE LEVEL prasugrel 10 mg tablet See Rx Instructions .ROUTE .COMPLEX Qty: 90 0RF Dose Instruction: Take 1 tablet by mouth once daily Rx Instructions: Take 1 tablet by mouth once daily omeprazole 40 mg capsule,delayed release(DR/EC) See Rx Instructions .ROUTE .COMPLEX Qty: 90 2RF Dose Instruction: Take 1 capsule by mouth once daily Rx Instructions: Take 1 capsule by mouth once daily aspirin 81 MG tablet,delayed release (DR/EC) 81 mg PO QDAY atorvastatin 80 MG tablet 80 mg PO DAILY diltiazem HCl 240 MG capsule,extended release 24hr See Rx Instructions .Route .COMPLEX Rx Instructions: TAKE 1 CAPSULE BY MOUTH TWICE DAILY FOR BLOOD PRESSURE glipizide 10 MG tablet extended release 24hr See Rx Instructions .Route .COMPLEX Rx Instructions: Take 1 tablet by mouth twice daily metoprolol succinate 100 MG tablet extended release 24 hr See Rx Instructions .Route .COMPLEX Rx Instructions: Take 1 tablet by mouth once daily for blood pressure spironolactone 25 MG tablet 25 mg PO BID fluticasone propion-salmeterol 1 EACH blister with device 1 inh IH BID montelukast 10 MG tablet 10 mg PO DAILY azelastine 137 MCG/0.137 ML bottle 2 spray NS BID Rx Instructions: administer into each nostril lisinopril 40
[2022-05-21 18:15] VITALS: BP 121/74; PULSE 65; RESP 16; TEMP 36.4; O2SAT 97
== END 2022-05-21 18:17 | disposition home or self-care (01) ==
PROVIDERS: Emergency Provider Emergency Medicine; PCP Physician Assistant
DX: L76.21 Postprocedural hemorrhage of skin and subcutaneous tissue following a dermatologic procedure (principal); Z98.890 Other specified postprocedural states
CPT/HCPCS: 99282

== ENCOUNTER → 2022-06-22 08:35 | Outpatient (CLI) | payer OTHER, SELFPAY ==
[2022-06-22 15:04] LABS: Basophils # 0.1 K/mm3 (0-0.2); Basophils % 1.3 % (0.1-2.0); Eosinophils # 0.2 K/mm3 (0.0-0.4); Eosinophils % 2.4 % (0.1-12.0); Hematocrit 48.7 % (42.0-52.0); Hemoglobin 15.9 g/dL (14.1-18.0); Lymphocytes # 3.4 K/mm3 (0.7-4.5); Lymphocytes % 38.1 % (10-50); Mean Corpuscular HGB Conc 32.7 g/dL (31.8-35.4); Mean Corpuscular Hemoglobin 30.4 pg (27.0-31.2); Mean Corpuscular Volume 92.9 fl (80-94); Mean Platelet Volume 9.2 fl (7.4-10.4); Monocytes # 0.6 K/mm3 (0.1-1.0); Neutrophils # 4.6 K/mm3 (1.8-7.8); Neutrophils % 51.3 % (37.0-80.0); Platelet Count 290 K/mm3 (142-424); Red Blood Count 5.24 M/mm3 (4.60-6.20); Red Cell Distribution Width 14.7 % (11.5-17.5); White Blood Count 8.9 K/mm3 (4.8-10.8)
[2022-06-22 15:32] LABS: Alanine Aminotransferase 67 U/L (12-78); Albumin Level 3.9 g/dl (3.5-5.0); Albumin/Globulin Ratio 1.4 (1.1-1.8); Alkaline Phosphatase 110 U/L (38-126); Anion Gap 16.3 mEq/L (5-15); Aspartate Amino Transferase 45 U/L (17-59); Bilirubin,Total 0.2 mg/dl (0.2-1.3); Blood Urea Nitrogen 30 mg/dl (9-20); Calcium 8.9 mg/dl (8.4-10.2); Carbon Dioxide 22 mmol/L (22.0-30.0); Chloride 105 mmol/L (98-107); Cholesterol 161 mg/dl (140-200); Estimated Glomerular Filt Rate 62 ml/min (>60); GFR (African American) 75 ML/MIN (>60); Globulin 2.7 g/dL (1.3-3.2); Glucose 188 mg/dl (74-100); HDL Cholesterol 23 mg/dl (40-60); Potassium 4.3 mmoL/L (3.5-5.1); Sodium 139 mmol/L (136-145); Total Protein,Serum 6.6 g/dl (6.3-8.2)
[2022-06-22 15:33] LABS: Triglycerides 498 mg/dl (30-150)
[2022-06-22 15:34] LABS: Microalbumin < 6.000 mg/L (0-16.7)
[2022-06-22 15:43] LABS: Direct LDL Cholesterol 58.56 mg/dL (100-129)
[2022-06-22 15:49] LABS: Creatinine,Urine Random 82 mg/dL (Not Estab.)
[2022-06-22 15:51] LABS: 25-OH Vitamin D, Total 41.1 ng/mL (30-100)
[2022-06-22 16:05] LABS: Thyroid Stimulating Hormone 2.18 uIU/mL (0.465-4.68)
[2022-06-23 09:49] LABS: Prostate Specific Ag Screen 0.4 ng/ml (0.0-4.0)
== END ==
PROVIDERS: PCP Physician Assistant; Visit Provider Physician Assistant
DX: E11.9 Type 2 diabetes mellitus without complications (principal); Z12.5 Encounter for screening for malignant neoplasm of prostate; E66.9 Obesity, unspecified; Z68.41 Body mass index [BMI] 40.0-44.9, adult; Z79.4 Long term (current) use of insulin
CPT/HCPCS: 80053; 80061; 82043; 82306; 82570; 84443; 85025; G0103

== ENCOUNTER → 2022-09-28 11:56 | Outpatient (CLI) | payer OTHER, SELFPAY ==
[2022-09-28 19:46] LABS: Basophils # 0.1 K/mm3 (0-0.2); Basophils % 1.1 % (0.1-2.0); Eosinophils # 0.2 K/mm3 (0.0-0.4); Eosinophils % 1.3 % (0.1-12.0); Hematocrit 48.7 % (42.0-52.0); Hemoglobin 15.9 g/dL (14.1-18.0); Lymphocytes % 31.2 % (10-50); Mean Corpuscular HGB Conc 32.7 g/dL (31.8-35.4); Mean Corpuscular Hemoglobin 30.5 pg (27.0-31.2); Mean Corpuscular Volume 93.2 fl (80-94); Mean Platelet Volume 9.1 fl (7.4-10.4); Monocytes # 0.7 K/mm3 (0.1-1.0); Monocytes % 5.5 % (1.7-9.3); Neutrophils # 7.8 K/mm3 (1.8-7.8); Neutrophils % 60.9 % (37.0-80.0); Platelet Count 360 K/mm3 (142-424); Red Blood Count 5.22 M/mm3 (4.60-6.20); Red Cell Distribution Width 15.2 % (11.5-17.5); White Blood Count 12.8 K/mm3 (4.8-10.8)
[2022-09-28 19:47] LABS: Alanine Aminotransferase 80 U/L (12-78); Albumin Level 4.4 g/dl (3.5-5.0); Albumin/Globulin Ratio 1.5 (1.1-1.8); Alkaline Phosphatase 86 U/L (38-126); Anion Gap 13.9 mEq/L (5-15); Aspartate Amino Transferase 54 U/L (17-59); Bilirubin,Total 0.6 mg/dl (0.2-1.3); Blood Urea Nitrogen 21 mg/dl (9-20); Calcium 9.6 mg/dl (8.4-10.2); Carbon Dioxide 21 mmol/L (22.0-30.0); Chloride 106 mmol/L (98-107); Cholesterol 124 mg/dl (140-200); Estimated Glomerular Filt Rate 68 ml/min (>60); GFR (African American) 82 ML/MIN (>60); Glucose 121 mg/dl (74-100); HDL Cholesterol 25 mg/dl (40-60); Potassium 4.9 mmoL/L (3.5-5.1); Sodium 136 mmol/L (136-145); Total Protein,Serum 7.4 g/dl (6.3-8.2); Triglycerides 322 mg/dl (30-150); VLDL Cholesterol 64 mg/dL (0-40)
[2022-09-28 19:58] LABS: Direct LDL Cholesterol 44.07 mg/dL (100-129)
[2022-09-28 20:18] LABS: Thyroid Stimulating Hormone 1.66 uIU/mL (0.465-4.68)
== END ==
PROVIDERS: PCP Physician Assistant; Visit Provider Physician Assistant
DX: E11.9 Type 2 diabetes mellitus without complications (principal); E66.9 Obesity, unspecified; Z68.39 Body mass index [BMI] 39.0-39.9, adult; Z79.899 Other long term (current) drug therapy; Z79.4 Long term (current) use of insulin
CPT/HCPCS: 80053; 80061; 82306; 84443; 85025

== ENCOUNTER → 2022-11-30 11:18 | Outpatient (CLI) | payer OTHER, SELFPAY ==
--- NOTE | 2022-11-30 11:21 | XR_ITS ---
FINAL REPORT CLINICAL HISTORY: SOB COMPARISON: 03/17/2020 FINDINGS: TWO-VIEW CHEST The heart size is normal. There is blunting of the right costophrenic angle, probably postinflammatory. The lungs are otherwise clear. There is no pneumothorax. IMPRESSION: Blunting of the right costophrenic angle, probably postinflammatory. Reviewed, Interpreted and Dictated by Ricky Hernandez MD Transcribed by Naz Muniz Authenticated and . [facility]
== END ==
PROVIDERS: PCP Physician Assistant; Visit Provider Internal Medicine Pulmonary Disease
DX: R06.02 Shortness of breath (principal)
CPT/HCPCS: 71046

== ENCOUNTER 2023-02-14 01:54 | Emergency (ER) | payer OTHER, SELFPAY ==
[2023-02-14 01:55] VITALS: BP 142/84; PULSE 78; RESP 20; TEMP 36.4; O2SAT 95; BMI 40.6
[2023-02-14 02:00] VITALS: BP 142/84; PULSE 77; RESP 20; O2SAT 97
--- NOTE | 2023-02-14 02:12 | XR_ITS ---
PROCEDURE INFORMATION: Exam: XR Chest Exam date and time: 02/14/2023 2:23 AM Age: 62 years old Clinical indication: Shortness of breath; Additional info: SOA TECHNIQUE: Imaging protocol: Radiologic exam of the chest. Views: 2 views. COMPARISON: CR XR CHEST 2V 11/30/2022 11:38 AM FINDINGS: Lungs: Unremarkable. No consolidation. Pleural spaces: Unremarkable. No pleural effusion. No pneumothorax. Heart/Mediastinum: Unremarkable. No cardiomegaly. Bones/joints: Unremarkable. IMPRESSION: No acute findings.
--- NOTE | 2023-02-14 02:13 | ECG_ITS ---
APPROVED REPORT Exam: Resting ECG HR:77 bpm ECG Measurements Heart Rate 77 AXES KS 202 P 93 QRSd 79 QRS 37 QT 385 T 55 QTc 416 Conclusion SINUS RHYTHM WITH OCCASIONAL SUPRAVENTRICULAR PREMATURE COMPLEXES IN A BIGEMINAL PATTERN LOW QRS VOLTAGE IN PRECORDIAL LEADS [QRS DEFLECTION < 1.0 mV IN CHEST LEADS] ABNORMAL RHYTHM ECG UNCONFIRMED REPORT Electronically signed by : José Gifford MD 02/14/2023 07:47:14
[2023-02-14 02:28] LABS: Basophils # 0.1 K/mm3 (0-0.2); Basophils % 0.9 % (0.1-2.0); Eosinophils # 0.2 K/mm3 (0.0-0.4); Eosinophils % 1.4 % (0.1-12.0); Hemoglobin 16.2 g/dL (14.1-18.0); Lymphocytes # 6.8 K/mm3 (0.7-4.5); Lymphocytes % 47.4 % (10-50); Mean Corpuscular HGB Conc 32.9 g/dL (31.8-35.4); Mean Corpuscular Hemoglobin 29.5 pg (27.0-31.2); Mean Corpuscular Volume 89.5 fl (80-94); Mean Platelet Volume 8.1 fl (7.4-10.4); Monocytes % 6.8 % (1.7-9.3); Neutrophils # 6.3 K/mm3 (1.8-7.8); Neutrophils % 43.6 % (37.0-80.0); Platelet Count 279 K/mm3 (142-424); Red Blood Count 5.48 M/mm3 (4.60-6.20); Red Cell Distribution Width 14.7 % (11.5-17.5); White Blood Count 14.4 K/mm3 (4.8-10.8)
--- NOTE | 2023-02-14 02:28 | HMH.EDSOB ---
Discharge Plan Disposition Patient Disposition: Still a Patient Chief Complaint: Shortness of Breath/Dyspnea Prescriptions Prescriptions: No Action omega 1-wlr-ram-fish oil [Fish Oil] 1,000 mg (120 mg-180 mg) capsule 1 cap PO DAILY multivitamin tablet 1 tab PO QAM ipratropium-albuterol 0.5 mg-3 mg(2.5 mg base)/3 mL solution for nebulization 3 ml IH QID PRN (Reason: shortness of breath or wheezing) Qty: 180 5RF Ozempic 2 mg/dose (8 mg/3 mL) pen injector 2 mg SQ WEEKLY Label Comments: INJECT 2MG SUBCUTANEOUSLY ONCE A WEEK insulin glargine 100 unit/mL (3 mL) insulin pen 34 unit SQ HS Label Comments: INJECT 25 UNITS SUBCUTANEOUSLY AT BEDTIME WITH POTENTIAL TITRATION TO MAX DAILY DOSE OF 50 UNITS albuterol sulfate 90 mcg/actuation HFA aerosol inhaler 1 inh IH QID PRN (Reason: shortness of breath or wheezing) 90 Days Qty: 8.5 3RF azelastine 137 mcg (0.1 %) aerosol,spray 2 spray NS BID 90 Days Qty: 30 3RF Rx Instructions: administer into each nostril amitriptyline 10 mg tablet 10 mg PO DAILY Qty: 90 3RF aspirin 81 mg tablet,delayed release (DR/EC) 81 mg PO QDAY Qty: 90 3RF Zyrtec 10 mg capsule 10 mg PO DAILY PRN (Reason: allergy symptoms) Qty: 90 3RF ergocalciferol (vitamin D2) 1,250 mcg (50,000 unit) capsule See Rx Instructions .Route .COMPLEX Qty: 14 3RF Rx Instructions: Take 1 capsule by mouth once a week lisinopril 40 mg tablet 40 mg PO DAILY Qty: 90 3RF metoprolol succinate 100 mg tablet extended release 24 hr 100 mg PO DAILY Qty: 90 3RF (DME) blood-glucose sensor Device See Rx Instructions .Route .COMPLEX Qty: 5 3RF Rx Instructions: USE DIRECTED TO TEST BLOOD GLUCOSE LEVEL diltiazem HCl 240 MG capsule,extended release 24hr See Rx Instructions .Route .COMPLEX Rx Instructions: TAKE 1 CAPSULE BY MOUTH TWICE DAILY FOR BLOOD PRESSURE glipizide 10 MG tablet extended release 24hr See Rx Instructions .Route .COMPLEX Rx Instructions: Take 1 tablet by mouth twice daily empagliflozin 25 MG tablet See Rx Instructions .Route .COMPLEX Rx Instructions: TAKE 1 TABLET BY MOUTH ONCE DAILY FOR DIABETES metformin 500 mg tablet extended release 24 hr 1,000 mg PO BID spironolactone 25 mg tablet 25 mg PO BID PRN (Reason: Fluid) atorvastatin 80 mg tablet See Rx Instructions .ROUTE .COMPLEX Rx Instructions: Take 1 tablet by mouth once daily bumetanide 2 mg tablet See Rx Instructions .ROUTE .COMPLEX Rx Instructions: Take 1 tablet by mouth twice daily azithromycin [Zithromax] 250 mg tablet See Rx Instructions PO .COMPLEX Rx Instructions: For 250 mg dose pack: take 500 mg today (day 1), then 250 mg for 4 days (days 2-5) PO omeprazole 40 mg capsule,delayed release(DR/EC) See Rx Instructions .ROUTE .COMPLEX Rx Instructions: Take 1 capsule by mouth once daily fluticasone propion-salmeterol [Advair Diskus] 500-50 mcg/dose blister with device 1 inh INHALATION BID montelukast [Singulair] 10 mg tablet 10 mg PO DAILY fluticasone propionate [Flonase Allergy Relief] 50 mcg/actuation spray,suspension 1 spray INTRANASAL BID Rx Instructions: administer into each nostril Spiriva with HandiHaler 18 mcg capsule, w/inhalation device 1 cap inhalation DAILY Rx Instructions: puncture 1 cap using device; one dose = 2 inhalations prasugrel 10 mg tablet 10 mg PO DAILY (DME) Dexcom G6 Transmitter Device See Rx Instructions .ROUTE .COMPLEX Rx Instructions: USE DIRECTED TO TEST BLOOD GLUCOSE LEVEL (CHANGE transmitter every 90 DAYS) Referrals Follow up/Referrals: Deborah Lyn PA [Primary Care Provider] - See instructions López Woods MD [Staff Physician] - See instructions Activity Restrictions/Add. Instructions Additional Instructions/Restrictions: see card in am
[2023-02-14 02:33] LABS: Alanine Aminotransferase 77 U/L (12-78); Albumin Level 4.5 g/dl (3.5-5.0); Alkaline Phosphatase 85 U/L (38-126); Anion Gap 18.2 mEq/L (5-15); Aspartate Amino Transferase 63 U/L (17-59); Bilirubin,Indirect 0.5 mg/dL (0.0-0.9); Bilirubin,Total 0.5 mg/dl (0.2-1.3); Bilirubin,Unconjugated 0.6 mg/dL (0.0-1.1); Blood Urea Nitrogen 31 mg/dl (9-20); Calcium 9.5 mg/dl (8.4-10.2); Carbon Dioxide 25 mmol/L (22.0-30.0); Chloride 100 mmol/L (98-107); Creatinine Clearance Estimated 100 mL/min (50-200); Estimated Glomerular Filt Rate 48 ml/min (>60); GFR (African American) 58 ML/MIN (>60); Glucose 150 mg/dl (74-100); Potassium 4.2 mmoL/L (3.5-5.1); Sodium 139 mmol/L (136-145); Total Protein,Serum 8.1 g/dl (6.3-8.2)
[2023-02-14 02:38] LABS: C-Reactive Protein 13.9 mg/L (0-4)
[2023-02-14 02:43] VITALS: BP 124/63; PULSE 72; RESP 18; O2SAT 95
[2023-02-14 02:44] LABS: NT Pro Brain Natriuretic Pep. 28.3 pg/mL (0-125)
[2023-02-14 02:54] LABS: Erythrocyte Sedimentation Rate 14 mm/hr (0-20)
[2023-02-14 02:55] LABS: Troponin I < 0.01 ng/ml (0.00-0.034)
--- NOTE | 2023-02-14 02:57 | PC.NURSE ---
Dr. Fernando at
[2023-02-14 03:01] VITALS: BP 129/70; PULSE 73; RESP 20; O2SAT 95
[2023-02-14 03:33] VITALS: BP 109/67; PULSE 76; RESP 12; TEMP 36.7; O2SAT 97
== END 2023-02-14 03:43 | disposition still patient (30) ==
PROVIDERS: Emergency Provider Emergency Medicine; PCP Physician Assistant
DX: R00.1 Bradycardia, unspecified (principal); I25.10 Atherosclerotic heart disease of native coronary artery without angina pectoris; E11.9 Type 2 diabetes mellitus without complications; R06.02 Shortness of breath; J44.9 Chronic obstructive pulmonary disease, unspecified; J45.40 Moderate persistent asthma, uncomplicated; I73.9 Peripheral vascular disease, unspecified; Z79.4 Long term (current) use of insulin; Z87.891 Personal history of nicotine dependence; I11.9 Hypertensive heart disease without heart failure
CPT/HCPCS: 71046; 80048; 80076; 83880; 84484; 85025; 85651; 86140; 93005; 99284; 99285

== ENCOUNTER → 2023-02-14 11:38 | Outpatient (CLI) | payer OTHER, SELFPAY | LOC: RT 11:39 | PROVIDERS: PCP Physician Assistant; Visit Provider Nurse Practitioner Family | DX: R42 Dizziness and giddiness (principal) | CPT/HCPCS: 93270 ==

== ENCOUNTER → 2023-04-28 07:40 | Outpatient (CLI) | payer OTHER, SELFPAY ==
--- NOTE | 2023-04-28 07:40 | CT_ITS ---
FINAL REPORT TECHNIQUE: Axial images were obtained from the lung apex to the mid abdomen by computed tomography. This study was performed with techniques to keep radiation doses as low as reasonably achievable (ALARA). Individualized dose reduction techniques using automated exposure control or adjustment of mA and/or kV according to the patient's size were employed. CLINICAL HISTORY: lung cancer screening former smoker, quit 5 years ago. smoked 2 ppd x 30 years copd, cad, family hx of lung cancer FINDINGS: CHEST CT LOW DOSE CTDI vol (mGy): 2.90 DLP (mGy-cm): 102.38 There is no axillary adenopathy. There is no hilar or mediastinal adenopathy. The heart is norm there is stable pleural and parenchymal scarring at the right base. al in size. There is no pericardial or pleural effusion. Lung window images demonstrate no suspicious infiltrate or nodule. Limited images of the upper abdomen reveal a stable 1.5 cm right adrenal nodule. IMPRESSION: Stable right adrenal nodule. Lung RADS category 1S. Recommend 12 month follow-up low-dose chest CT. Reviewed, Interpreted and Dictated by Ricky Hernandez MD Transcribed by Naz Muniz Authenticated and [facility][1]
== END ==
PROVIDERS: PCP Physician Assistant; Visit Provider Internal Medicine Pulmonary Disease
DX: Z87.891 Personal history of nicotine dependence (principal); Z12.2 Encounter for screening for malignant neoplasm of respiratory organs
CPT/HCPCS: 71271

== ENCOUNTER 2023-09-27 21:03 | Outpatient (CLI) | payer OTHER, SELFPAY ==
[2023-09-27 18:31] LABS: Adenovirus,PCR Not Detected (NotDetected); Coronavirus 19, PCR Not Detected (NotDetected); Coronavirus 229E Not Detected (NotDetected); Coronavirus NL63 Not Detected (NotDetected); Coronavirus OC43 Not Detected (NotDetected); Coronovirus HKU1,PCR Not Detected (NotDetected); Human Metapneumovirus Not Detected (NotDetected); Influenza A, PCR Not Detected (NotDetected); Influenza AH1, 2009 Not Detected (NotDetected); Influenza AH1, PCR Not Detected (NotDetected); Influenza AH3,PCR Not Detected (NotDetected); Influenza B, PCR Not Detected (NotDetected); Parainfluenza 1, PCR Not Detected (NotDetected); Parainfluenza 2, PCR Not Detected (NotDetected); Parainfluenza 3, PCR Not Detected (NotDetected); Parainfluenza 4, PCR Not Detected (NotDetected); Respiratory Syncytial Virus Not Detected (NotDetected); Rhinovirus/Enterovirus Not Detected (NotDetected)
== END 2023-09-27 23:59 ==
LOC: LAB.DROPOF 21:03
PROVIDERS: PCP Student in an Organized Health Care Education/Training Program; Visit Provider Student in an Organized Health Care Education/Training Program
DX: J02.9 Acute pharyngitis, unspecified (principal); R09.89 Other specified symptoms and signs involving the circulatory and respiratory systems; R05.8 Other specified cough; Z20.828 Contact with and (suspected) exposure to other viral communicable diseases
CPT/HCPCS: 87070; 87632; 87635

== ENCOUNTER 2023-11-01 12:45 | Outpatient (CLI) | payer OTHER, SELFPAY ==
--- NOTE | 2023-11-01 13:58 | PC.NURSE ---
PFT and 6 Minute Walk Test completed without incident. Albuterol 0.083% via HHN, per protocol, Pt tolerated tx well.
== END 2023-11-01 23:59 ==
LOC: RT 12:46
PROVIDERS: PCP Physician Assistant; Visit Provider Internal Medicine Pulmonary Disease
DX: R06.09 Other forms of dyspnea (principal)
CPT/HCPCS: 94060; 94618; 94726; 94729

== ENCOUNTER 2023-12-23 09:12 | Day surgery (SDC) | payer OTHER, SELFPAY ==
[2023-12-21 14:56] VITALS: BMI 40.2
[2023-12-23] MEDS: LACTATED RINGERS 1000ML 1,000 ML 25 ML IV (09:30)
[2023-12-23 09:38] VITALS: BP 127/65; PULSE 71; RESP 18; TEMP 36.6; O2SAT 97
[2023-12-23 09:48] LABS: POC Glucose,Bedside 114 (70-110)
--- NOTE | 2023-12-23 09:58 | P.PCN_ITS ---
Procedure: Date: 12/23/23 Patient Date of :: 1960 Procedure Performed:: Total colonoscopy to ileocecal valve with multiple polypectomy Indications:: Patient is a 63-year-old male who presents for colonoscopy. He had a colonoscopy with Dr. Harris in 2010. I performed colonoscopy November 2016 and he had 4 tubular adenomas and 3 sessile serrated adenomas. I performed follow- up colonoscopy on 05/15/2019 and there were multiple hyperplastic polyps. Recommendations were for a 2-year follow-up colonoscopy. (That was 5 years ago). . Performing Provider:: Nik Liu MD Referring Provider:: Deborah Lyn Sedation:: MAC sedation Procedure:: . Patient history was obtained and appropriate physical examination was performed. Patient's medications and allergies were reviewed. Informed consent was obt ained after explaining the benefits, alternatives, and risks of the procedure including, but not limited to, bleeding, perforation, missed lesions, and adverse reaction to anesthesia medications. Patient was transported to endoscopy procedure room. Patient was connected to monitoring devices. Throughout the procedure the patient's blood pressure, pulse, and oxygen saturations were monitored continuously. Patient identification and planned procedure were verified by the staff. Patient was positioned in lateral decubitus position. Digital anorectal exam was performed. Variable stiffness Olympus colonoscope was inserted and advanced under direct visualization to the cecum. Adequacy of the colonic preparation was noted. The colonoscope was advanced a short distance into the terminal ileum. The colonoscope was then slowly withdrawn while carefully examining the color, texture, anatomy, and integrity of the mucosoa circumferentially. Within the rectum retroflexion was performed. Colonoscope was then withdrawn. . Impression: Colonoscope was ultimately advanced to the cecum with some difficulty due to floppiness of the sigmoid colon and patient's body habitus. Colonic preparation was fair. Essentially on the ileocecal valve there was what appeared to be irregular sessile polyp. Yaritza view was injected submucosally in an attempt to raise this. It then appears that was removed in its entirety using the hot snare. Adjacent tissue was biopsied to evaluate for any adenomatous change. In the descending colon there was an adenomatous sessile appearing polyp removed with cold snare. In the sigmoid colon there was a diminutive polyp removed with cold snare. Sigmoid colon there was a diminutive polyp removed with cold snare. In the distal sigmoid colon there were a couple of diminutive polyps removed with biopsy forceps, possibly hyperplastic. The rectosigmoid region there were numerous hyperplastic appearing polyps. Larger of these were removed with snare and biopsy forceps. Retroflexion within the rectum revealed a focal area of pigmentation which could be early adenomatous change. This was biopsied. . Findings:: . Fair preparation Polyps as noted above. Total of approximately 9 polyps removed. Majority of these appeared hyperplastic. Most concerning polyp was the sessile irregular polyp in the ileocecal valve region. Focal area of pigmentation in the rectum . Recommendations:: Repeat colonoscopy pending pathology. However given fair preparation and findings likely 1 over 2 years. Potentially earlier if adjacent tissue in the ileocecal valve region is adenomatous. Complications:: None immediate Estimated blood obtained (mL): 3 Colonoscopy Component Colonoscopy Component Was a colonoscopy performed during today's procedure?: Yes Recommended follow up colonoscopy of at least 10 years?: No If no, follow up colonoscopy recommended in ___ years?: 1-2 Reason for not recommending >/= 10 yr follow-up interval?: See above
--- NOTE | 2023-12-23 10:03 | P.PNANES_ITS ---
[facility] Disclaimer: The information contained in this section may have been updated after the patient was seen, as this information can be updated by other users. Medical History Encounter for screening for malignant neoplasm of lung in current smoker with 30 pack year history or greater Allergic rhinitis Moderate persistent asthma COPD (chronic obstructive pulmonary disease) History of smoking 30 or more pack years Elevated IgE level Seasonal allergies Shortness of breath Dyspnea on exertion Chest pain Diabetic foot PAD (peripheral artery disease) Vitamin D deficiency Edema CAD (coronary artery disease) Surgical History History of colonoscopy History of arthroscopic knee surgery Family History Other Coronary artery disease Diabetes Heart attack Hyperlipidemia Hypertension Social History Smoking Status: Former smoker tobacco type: cigarettes packs per day: 0 smoking status stop date: 2017 alcohol intake: never substance use type: denies use current occupational status: disabled Travel in the last 8 weeks: None household members: spouse and children housing: house caffeine: Yes [facility] Anesthesia Checklist Patient Identification Patient Identification: Arm Band and Verbal (Name & ) Structural Data Admitted From: Home Planned Operative Procedure/s: Colonoscopy Consent for Planned Operative Procedure(s) Verified: Yes Verified Documents: Surgical Consent and History and Physical NPO Status Verified Time NPO: 20:00 Chart Verification Results Verified: CBC, BMP, ECG and Chest Xray Additional verifications Fingerstick Blood Glucose: 114 Patient : No Anesthesia Reactions: No Hx Blood Transfusions: No Blood Transfusion Reaction: No Cardiovascular Assessment Heart Sounds: S1 & S2 Pulse Rhythm: Irregular Peripheral Edema: Yes (3+ DANA LE) Airway Assessment Mallampati Score:: Class II C-Spine Mobility Assessed: Yes (FROM) TMJ Mobility Assessed: Yes Dentition: Edentulous Neurological Assessment Level of Consciousness: Awake, Alert, Appropriate and Follows Commands Hx Seizures: No Numbness or tingling in extremities: No Anesthesia Plan Anesthesia Risk discussed: Yes Anesthesia Plan: Verified ASA Class: III Anesthesia Type: MAC
[2023-12-23 10:07] VITALS: O2SAT 97
[2023-12-23 11:09] VITALS: BP 124/74; PULSE 70; RESP 18; TEMP 36.2; O2SAT 97
--- NOTE | 2023-12-23 11:11 | EXP.ANES.I ---
[facility] Anesthesia Record Part I Anesthesia Record I Intake, IV Amount: 750 Hydration: Adequate Estimated blood loss (mL): 5 Urine output (mL): 0 Blood Products used (#): none Blood Pressure: 124/74 SaO2: 92 Pulse Rate: 71 Airway Patency: Patent Respiratory Rate: 18 Temperature: 97.1 F Patient is:: Awake (Talking) and Stable Stable to PACU at:: 11:14
[2023-12-23 11:12] VITALS: BP 124/74; PULSE 71; RESP 18; TEMP 36.2; O2SAT 92
[2023-12-23 11:19] VITALS: BP 135/77; PULSE 60; RESP 18; O2SAT 95
[2023-12-23] MEDS: IPRATROPIUM/ALBUTEROL 3 ML NEB IH (11:20)
[2023-12-23 11:29] VITALS: BP 138/78; PULSE 65; RESP 18; O2SAT 96
== END 2023-12-23 11:29 | disposition home or self-care (01) ==
PROVIDERS: PCP Physician Assistant; Visit Provider Surgery
PROC: 0DJD8ZZ Inspection of Lower Intestinal Tract, Via Natural or Artificial Opening Endoscopic (ICD-10-PCS; CPT 45385; principal; 2023-12-23 10:30)
DX: Z12.11 Encounter for screening for malignant neoplasm of colon (principal); Z86.010 Personal history of colon polyps; E11.9 Type 2 diabetes mellitus without complications; D12.0 Benign neoplasm of cecum; D12.4 Benign neoplasm of descending colon; D12.5 Benign neoplasm of sigmoid colon; K63.5 Polyp of colon
CPT/HCPCS: 45385; 45380; 82962; J2704

== ENCOUNTER 2023-12-29 14:07 | Outpatient (CLI) | payer OTHER, SELFPAY | END 2023-12-29 23:59 | disposition home or self-care (01) | LOC: RT 14:07 | PROVIDERS: PCP Physician Assistant; Visit Provider Internal Medicine | DX: R00.1 Bradycardia, unspecified (principal); R00.2 Palpitations | CPT/HCPCS: 93270 ==

== ENCOUNTER 2024-04-27 15:04 | Outpatient (CLI) | payer OTHER, SELFPAY ==
--- NOTE | 2024-04-27 15:05 | CT_ITS ---
FINAL REPORT CLINICAL HISTORY: lung cancer screening former smoker quit 6 years, smoked 2 ppd for 42 years COMPARISON: 04/28/2023 FINDINGS: Axial images were obtained from the lung apex to the mid abdomen by computed tomography. Low-dose protocol was utilized. CTDl vol(mGy): 2.90 DLP (mGy-cm): 107.07 FINDINGS: There is no axillary adenopathy. There is no hilar or mediastinal adenopathy. The heart size is normal. There is no pericardial or pleural effusion. Limited images of the upper abdomen demonstrate this stable small right adrenal nodule measuring 1.3 cm in diameter. Lung window images demonstrate a tiny nodule in the medial posterior right upper lobe which may be partially calcified. This is stable and well-seen on image 21 of series 604. IMPRESSION: Stable right upper lobe nodule. Lung RADS category 2. Recommend 12 month follow-up low-dose chest CT. Reviewed, Interpreted and Dictated by Ricky Hernandez MD Transcribed by Christiane Altman Authenticated and [facility]
== END 2024-04-27 23:59 | disposition home or self-care (01) ==
LOC: RAD 15:05
PROVIDERS: PCP Physician Assistant; Visit Provider Internal Medicine Pulmonary Disease
DX: Z87.891 Personal history of nicotine dependence (principal)
CPT/HCPCS: 71271

== ENCOUNTER 2024-06-11 10:37 | Outpatient (CLI) | payer OTHER, SELFPAY ==
[2024-06-11 18:45] LABS: Basophils # 0.1 K/mm3 (0-0.2); Basophils % 1.2 % (0.1-2.0); Eosinophils # 0.3 K/mm3 (0.0-0.4); Eosinophils % 2.4 % (0.1-12.0); Hematocrit 46.1 % (42.0-52.0); Hemoglobin 16.1 g/dL (14.1-18.0); Lymphocytes # 3.6 K/mm3 (0.7-4.5); Lymphocytes % 35.5 % (10-50); Mean Corpuscular Volume 91.6 fl (80-94); Mean Platelet Volume 9.3 fl (7.4-10.4); Monocytes # 0.6 K/mm3 (0.1-1.0); Monocytes % 6.3 % (1.7-9.3); Neutrophils # 5.5 K/mm3 (1.8-7.8); Neutrophils % 54.5 % (37.0-80.0); Platelet Count 288 K/mm3 (142-424); Red Blood Count 5.03 M/mm3 (4.60-6.20); Red Cell Distribution Width 14.4 % (11.5-17.5); White Blood Count 10.2 K/mm3 (4.8-10.8)
[2024-06-11 19:21] LABS: Albumin Level 4.4 g/dl (3.5-5.0); Chloride 106 mmol/L (98-107); Potassium 4.4 mmoL/L (3.5-5.1); Sodium 138 mmol/L (136-145)
[2024-06-11 19:24] LABS: Alanine Aminotransferase 62 U/L (12-78); Albumin/Globulin Ratio 1.6 (1.1-1.8); Alkaline Phosphatase 89 U/L (38-126); Anion Gap 15.4 mEq/L (5-15); Aspartate Amino Transferase 45 U/L (17-59); Bilirubin,Total 0.6 mg/dl (0.2-1.3); Blood Urea Nitrogen 22 mg/dl (9-20); Carbon Dioxide 21 mmol/L (22.0-30.0); Cholesterol 149 mg/dl (140-200); Estimated Glomerular Filt Rate 61 ml/min (>60); GFR (African American) 74 ML/MIN (>60); Globulin 2.8 g/dL (1.3-3.2); Total Protein,Serum 7.2 g/dl (6.3-8.2)
[2024-06-11 19:25] LABS: Calcium 9.6 mg/dl (8.4-10.2); Chol/HDL Ratio 5.5 (1-3.5); Glucose 203 mg/dl (74-100); HDL Cholesterol 27 mg/dl (40-60)
[2024-06-11 19:31] LABS: Triglycerides 503 mg/dl (30-150)
[2024-06-11 19:35] LABS: Direct LDL Cholesterol 58.42 mg/dL (100-129)
[2024-06-11 19:44] LABS: 25-OH Vitamin D, Total 51.9 ng/mL (30-100)
[2024-06-11 19:54] LABS: HIV (1&2) Antibody Rapid NONREACTIVE (NONREACTIVE)
[2024-06-11 19:56] LABS: Prostate Specific Ag Screen 0.4 ng/ml (0.0-4.0)
[2024-06-12 03:35] LABS: Thyroid Stimulating Hormone 1.44 uIU/mL (0.465-4.68)
[2024-06-13 05:27] LABS: HCV Ab Non Reactive (Non Reactive)
== END 2024-06-11 23:59 | disposition home or self-care (01) ==
LOC: LAB.DROPOF 06-12 10:37
PROVIDERS: PCP Student in an Organized Health Care Education/Training Program; Visit Provider Student in an Organized Health Care Education/Training Program
DX: E11.9 Type 2 diabetes mellitus without complications (principal); Z79.4 Long term (current) use of insulin; E78.2 Mixed hyperlipidemia; Z12.5 Encounter for screening for malignant neoplasm of prostate; Z11.4 Encounter for screening for human immunodeficiency virus [HIV]; Z13.21 Encounter for screening for nutritional disorder; Z11.59 Encounter for screening for other viral diseases
CPT/HCPCS: 80050; 80053; 80061; 82306; 84443; 85025; 86803; 87389; G0103

== ENCOUNTER 2024-09-18 14:55 | Outpatient (CLI) | payer OTHER, SELFPAY ==
[2024-09-18 18:47] LABS: Alanine Aminotransferase 63 U/L (12-78); Albumin Level 4.5 g/dl (3.5-5.0); Albumin/Globulin Ratio 1.7 (1.1-1.8); Alkaline Phosphatase 71 U/L (38-126); Anion Gap 15.5 mEq/L (5-15); Aspartate Amino Transferase 58 U/L (17-59); Bilirubin,Total 0.5 mg/dl (0.2-1.3); Blood Urea Nitrogen 22 mg/dl (9-20); Calcium 9.8 mg/dl (8.4-10.2); Carbon Dioxide 25 mmol/L (22.0-30.0); Chloride 104 mmol/L (98-107); Chol/HDL Ratio 5.6 (1-3.5); Cholesterol 123 mg/dl (140-200); Estimated Glomerular Filt Rate 76 ml/min (>60); GFR (African American) 92 ML/MIN (>60); Globulin 2.6 g/dL (1.3-3.2); Glucose 116 mg/dl (74-100); HDL Cholesterol 22 mg/dl (40-60); Potassium 4.5 mmoL/L (3.5-5.1); Sodium 140 mmol/L (136-145); Total Protein,Serum 7.1 g/dl (6.3-8.2); Triglycerides 289 mg/dl (30-150); VLDL Cholesterol 58 mg/dL (0-40)
[2024-09-18 18:58] LABS: Direct LDL Cholesterol 55.02 mg/dL (100-129)
== END 2024-09-18 23:59 | disposition home or self-care (01) ==
LOC: LAB.DROPOF 09-19 12:21
PROVIDERS: PCP Family Medicine; Visit Provider Family Medicine
DX: E11.9 Type 2 diabetes mellitus without complications (principal); Z79.4 Long term (current) use of insulin; Z79.84 Long term (current) use of oral hypoglycemic drugs; Z79.85 Long-term (current) use of injectable non-insulin antidiabetic drugs
CPT/HCPCS: 80053; 80061; 83036

== ENCOUNTER 2024-09-27 10:15 | Outpatient (CLI) | payer OTHER, SELFPAY ==
--- NOTE | 2024-09-27 10:18 | XR_ITS ---
FINAL REPORT CLINICAL HISTORY: lt knee pain COMPARISON: None FINDINGS: LEFT KNEE Three views demonstrate no acute fracture or dislocation. There is mild narrowing of the medial compartment joint space. On the lateral view, there is a 1.7 cm ossific density superior to the patella probably related to an intra-articular loose body. There are moderate osteophytes along the undersurface of the patella. IMPRESSION: Probable intra-articular loose body superior to the patella. Degenerative changes as above. Reviewed, Interpreted and Dictated by Ricky Hernandez MD Transcribed by Andra Cortez Authenticated and [facility]
--- NOTE | 2024-09-27 10:18 | XR_ITS ---
FINAL REPORT CLINICAL HISTORY: rt knee pain COMPARISON: None FINDINGS: RIGHT KNEE Three views demonstrate no acute fracture or dislocation. There is mild narrowing of the medial compartment joint space. There is mild to moderate osteophyte formation along the undersurface of the patella. IMPRESSION: Mild to moderate osteoarthritis. Reviewed, Interpreted and Dictated by Ricky Hernandez MD Transcribed by Andra Cortez Authenticated and [facility]
== END 2024-09-27 23:59 | disposition home or self-care (01) ==
LOC: RAD 10:16
PROVIDERS: PCP Family Medicine; Visit Provider Physician Assistant
DX: M25.561 Pain in right knee (principal); M25.562 Pain in left knee
CPT/HCPCS: 73562

== ENCOUNTER 2025-02-13 13:58 | Emergency (ER) | payer OTHER, SELFPAY ==
[2025-02-13] VITALS (8 sets, daily range): BP systolic 101–127; BP diastolic 49–79; PULSE 65–79; RESP 17–19; TEMP 36.7–37.1; O2SAT 95–97; BMI 40.8
--- NOTE | 2025-02-13 14:04 | ED_ITS ---
<Statement entered by Hermilo Lord MD - 02/14/25 07:22> I was consulted by the FEMI, and we discussed the complexity of the problems being addressed. I approved the treatment and management plan for this patient's care in the emergency department, thus performing a substantive portion of the medical decision making. Hermilo Lord MD, TAYLOR, FACEP Discharge Plan Disposition Patient Disposition: Home, Self-Care Condition: Good Prescriptions Prescriptions: New ondansetron 4 mg tablet,disintegrating 4 mg PO QID PRN (Reason: nausea and vomiting) Qty: 10 0RF No Action multivitamin tablet 1 tab PO QAM ipratropium-albuterol 0.5 mg-3 mg(2.5 mg base)/3 mL solution for nebulization 3 ml IH QID PRN (Reason: shortness of breath or wheezing) Qty: 180 5RF ketoconazole 2 % cream topical Patient Comments: APPLY THIN LAYER TOPICALLY TO AFFECTED AREA TWICE DAILY NEEDED TO FACE FOR FLAKING icosapent ethyl 1 gram capsule 2 g PO BID fluticasone propion-salmeterol [Advair Diskus] 500-50 mcg/dose blister with device 1 inh INHALATION BID Qty: 180 3RF fluticasone propionate [Flonase Allergy Relief] 50 mcg/actuation spray,suspension 1 spray INTRANASAL BID 90 Days Qty: 48 3RF Rx Instructions: administer into each nostril azelastine 137 mcg (0.1 %) spray,non-aerosol 2 spray NS BID 90 Days Qty: 30 3RF Rx Instructions: administer into each nostril montelukast [Singulair] 10 mg tablet 10 mg PO DAILY Qty: 90 3RF albuterol sulfate 90 mcg/actuation HFA aerosol inhaler 1 inh IH QID PRN (Reason: shortness of breath or wheezing) 90 Days Qty: 8.5 3RF ammonium lactate 12 % cream 1 applic topical BID 30 Days Qty: 385 2RF ketoconazole 2 % shampoo topical Patient Comments: MASSAGE INTO SCALP 2-3 TIMES WEEKLY NEEDED WHEN FLARED. LET SIT FOR 5 MINUTES, THEN WASH OFF. insulin glargine 100 unit/mL (3 mL) insulin pen 28 unit SQ HS Patient Comments: INJECT 28 UNITS SUBCUTANEOUSLY AT BEDTIME WITH POTENTIAL TITRATION TO MAX DAILY DOSE OF 50 UNITS Jardiance 10 mg tablet 10 mg PO DAILY Mounjaro 10 mg/0.5 mL pen injector SQ spironolactone 25 mg tablet See Rx Instructions .ROUTE .COMPLEX Qty: 180 3RF Dose Instruction: Take 1 tablet by mouth twice daily Rx Instructions: Take 1 tablet by mouth twice daily metoprolol succinate 50 mg tablet extended release 24 hr See Rx Instructions .ROUTE .COMPLEX Qty: 90 3RF Dose Instruction: Take 1 tablet by mouth once daily Rx Instructions: Take 1 tablet by mouth once daily Eliquis 5 mg tablet See Rx Instructions .ROUTE .COMPLEX Qty: 180 3RF Dose Instruction: Take 1 tablet by mouth twice daily Rx Instructions: Take 1 tablet by mouth twice daily diltiazem HCl 240 mg capsule,extended release 24hr See Rx Instructions .ROUTE .COMPLEX Qty: 180 1RF Dose Instruction: TAKE 1 CAPSULE BY MOUTH TWICE DAILY FOR BLOOD PRESSURE Rx Instructions: TAKE 1 CAPSULE BY MOUTH TWICE DAILY FOR BLOOD PRESSURE lisinopril 40 mg tablet 40 mg PO DAILY Qty: 90 3RF cetirizine 10 mg tablet See Rx Instructions .ROUTE .COMPLEX Qty: 90 3RF Dose Instruction: TAKE 1 TABLET BY MOUTH ONCE DAILY NEEDED FOR ALLERGY SYMPTOMS Rx Instructions: TAKE 1 TABLET BY MOUTH ONCE DAILY NEEDED FOR ALLERGY SYMPTOMS omeprazole 40 mg capsule,delayed release(DR/EC) See Rx Instructions .ROUTE .COMPLEX Qty: 90 0RF Dose Instruction: Take 1 capsule by mouth once daily Rx Instructions: Take 1 capsule by mouth once daily cholecalciferol (vitamin D3) 50 mcg (2,000 unit) capsule 50 mcg PO DAILY Qty: 90 3RF atorvastatin 80 mg tablet See Rx Instructions .ROUTE .COMPLEX Qty: 90 3RF Dose Instruction: Take 1 tablet by mouth once daily Rx Instructions: Take 1 tablet by mouth once daily bumetanide 2 mg tablet See Rx Instructions .ROUTE .COMPLEX Qty: 60 0RF Dose Instruction: TAKE 1 TABLET BY MOUTH TWICE DAILY - PLEASE ESTABLISH WITH NEW PROVIDER FOR MORE REFILLS Rx Instructions: TAKE 1 TABLET BY MOUTH TWICE DAILY - PLEASE ESTABLISH WITH NEW PROVIDER FOR MORE REFILLS glipizide 10 MG tablet extended release 24hr See Rx Instructions .Route .COMPLEX Rx Instructions: Take 1 tablet by mouth twice daily metformin 500 mg tablet extended release 24 hr 1,000 mg PO BID Referrals Follow up/Referrals: José Arreaga MD [Primary Care Provider, Family Practice] - See instructions Activity Restrictions/Add. Instructions Additional Instructions/Restrictions: As we discussed I sent in nausea medicine to your pharmacy. If you have persistent new or worsening signs or symptoms you will need to follow-up with your PCP or return to the ER as needed. Clinical Impressions Clinical Impression: Nausea vomiting and diarrhea Instructions Patient Instructions: DI for Diarrhea and Traveler's Diarrhea -- Adult, DI for Diarrhea and Traveler's Diarrhea -- Child, DI for Nausea -- Adult, DI for Nausea -- Child Print Language Print Language: Nauruan Discharge ED Provider: Yogesh Goldberg General Adult HPI General Chief complaint: Nausea/Vomiting/Diarrhea Stated complaint: abd diarrhea, nausea vomiting 6+ days Time Seen by Provider: 02/13/25 14:04 History of Present Illness HPI narrative: Patient presents for evaluation of nausea vomiting abdominal pain. Patient has had 6 days of nausea vomiting diarrhea and diffuse abdominal pain. He has tried Zofran and Imodium without relief. He has been able to eat some but has very little appetite. He has never had abdominal surgery. He is morbidly obese with a BMI of 40 and has a history of coronary artery disease status post stents on aspirin Plavix type 2 diabetes mellitus on insulin GERD hyperlipidemia and hypertension. He denies shortness of breath fever chills hemoptysis hematochezia melena hematemesis hematuria. Related Data Home Medications ?Medication ?Instructions ?Recorded ?Confirmed multivitamin 1 tab PO QAM Supplement 02/1312/12/24 glipizide 10 mg tablet, extended See Rx Instructions . Route 02/04/22 12/12/24 release 24 hr .COMPLEX Diabetes metformin 500 mg tablet,extended 1,000 mg PO BID Diabe remedios 12/29/22 12/12/24 release 24 hr icosapent ethyl 1 gram capsule 2 g PO BID 07/12/23 insulin glargine 100 unit/mL (3 28 unit SQ HS Diabetes 03/08/24 12/12/24 mL) subcutaneous pen ketoconazole 2 % topical cream applic topical 03/08/24 12/12/24 ketoconazole 2 % shampoo topical 09/18/24 12/12/24 empagliflozin 10 mg tablet 10 mg PO DAILY Type 2 diabe remedios 11/05/24 12/12/24 (Jardiance) tirzepatide 10 mg/0.5 mL mg SQ Type 2 diabetes 12/12/24 subcutaneous pen injector (Harris) Previous Rx's ?Medication ?Instructions ?Recorded ipratropium 0.5 mg-albuterol 3 mg 3 ml inhalation QID PRN shortness 08/18/21 (2.5 mg base)/3 mL nebulization of breath or wheezing #180 mL soln spironolactone 25 mg tablet See Rx Instructions .Route 04/02/24 .COMPLEX #180 tabs albuterol sulfate 90 mcg/actuation 1 inh inhalation QI D PRN shortness 05/03/24 aerosol inhaler of breath or wheezing 90 day s #8.5 grams azelastine 137 mcg (0.1 %) nasal 2 spray intranasal BI D allergies 05/03/24 spray 90 days #30 mL fluticasone 500 mcg-salmeterol 50 1 inh inhalation BID #180 ea 05/03/24 mcg/dose blistr powdr for inhalation (Advair Diskus) fluticasone propionate 50 1 spray intranasal BID 90 da ys #48 05/03/24 mcg/actuation nasal grams spray,suspension (Flonase Allergy Relief) montelukast 10 mg tablet 10 mg PO DAILY #90 tabs 01/19 (Singulair) metoprolol succinate 50 mg See Rx Instructions .Route 07/09/24 tablet,extended release 24 hr .COMPLEX #90 tabs apixaban 5 mg tablet (Eliquis) See Rx Instructions .Ro jewel 07/30/24 .COMPLEX #180 tabs diltiazem HCl 240 mg See Rx Instructions .Route 0 10/25/24 capsule,extended release 24 hr .COMPLEX #180 caps lisinopril 40 mg tablet 40 mg PO DAILY #90 tabs 10/28 04/22 ammonium lactate 12 % topical cream 1 applic topical B ID dry skin, 12/12/24 callus care 30 days #385 grams cetirizine 10 mg tablet See Rx Instructions .Route 0 01/04/25 .COMPLEX #90 tabs omeprazole 40 mg capsule,delayed See Rx Instructions . Route 01/17/25 release .COMPLEX #90 caps cholecalciferol (vitamin D3) 50 50 mcg PO DAILY #90 ca ps 01/20/25 mcg (2,000 unit) capsule atorvastatin 80 mg tablet See Rx Instructions .Route 0 01/22/25 .COMPLEX #90 tabs bumetanide 2 mg tablet See Rx Instructions .Route 0 01/26/25 .COMPLEX #60 tabs ondansetron 4 mg disintegrating 4 mg PO QID PRN nausea and 02/13/25 tablet vomiting #10 tabs Allergies Allergy/AdvReac Type Severity Reaction Status Date / Time Penicillins Allergy Severe SOA Verified 12/12/24 13:17 isosorbide (From Imdur) AdvReac Intermediate Headache Verified 12/12/24 13:17 [facility] Disclaimer: The information contained in this section may have been updated after the patient was seen, as this information can be updated by other users. Medical History Chest pain URI, acute Knee pain Paroxysmal A-fib Encounter for screening for malignant neoplasm of lung in current smoker with 30 pack year history or greater Allergic rhinitis Moderate persistent asthma COPD (chronic obstructive pulmonary disease) History of smoking 30 or more pack years Elevated IgE level Seasonal allergies Shortness of breath Dyspnea on exertion Diabetic foot PAD (peripheral artery disease) Vitamin D deficiency Edema CAD (coronary artery disease) Surgical History History of colonoscopy History of arthroscopic knee surgery Family History Other Coronary artery disease Diabetes Heart attack Hyperlipidemia Hypertension Social History Smoking Status: Former smoker tobacco type: cigarettes packs per day: 0 smoking status stop date: 2017 alcohol intake: never substance use type: denies use current occupational status: disabled Travel in the last 8 weeks?: None household members: spouse and children housing: house caffeine: Yes Have you lived/traveled outside [place] in past 30 days?: No Contact w/someone who lives/traveled outside US past 30 days?: No Exposure to someone with infectious disease in past 14 days?: No Do you have a fever (greater than 100.4 F or 38 C)?: No Have you tested positive for COVID-19?: No Exposed to someone with COVID-19 in past 14 days?: No Do you have a sore throat?: No Do you have a cough?: No Do you have any weakness?: No Do you have any diarrhea?: Yes Are you experiencing any unusual bleeding?: No Do you have any muscle aches/pain?: No Do you have any abdominal pain?: Yes Are you experiencing loss of taste or smell?: No Other Medical History Have you received the Flu Vaccine for this season: Yes Have you received the Pneumonia Vaccine: Yes ROS Obtained: Yes Systems reviewed as appropriate & no additional complaints except as documented Physical Exam General General appearance: alert and in no apparent distress Respiratory Respiratory exam: Present normal lung sounds bilaterally Cardiovascular Cardiovascular exam: Present regular rate Neurological Exam Neurological exam: Present alert and oriented X3 Lymphatic Lymphatic Findings: no adenopathy Medical Decision Making Medical Records Medical records reviewed: Yes I reviewed the patient's medical records. Screening: Per USPSTF and CDC recommendations, given the prevalence of disease in our region, it is our hospital?s policy to screen for HIV and viral Hepatitis for all patients aged 18 and over and those with ongoing risk factors. Michael Inquiry Pt receiving controlled substance: No Vital Signs: 02/13/25 14:08 02/13/25 14:08 02/13/25 14:30 Temperature 98.0 F Temperature Source Oral Pulse Rate 76 79 Pulse Rate [Right] 65 Respiratory Rate 18 19 Blood Pressure 115/71 Blood Pressure [Right Arm] 127/79 Blood Pressure Mean 80 Blood Pressure Mean [Right Arm] 95 Blood Pressure Source Blood Pressure Position 02 Sat by Pulse Oximetry 95 97 95 Oxygen Delivery Method Room Air Room Air Room Air 02/13/25 15:15 02/13/25 15:31 02/13/25 16:26 Temperature Temperature Source Pulse Rate 66 70 66 Pulse Rate [Right] Respiratory Rate 18 18 Blood Pressure 113/49 L 101/56 L 101/70 L Blood Pressure [Right Arm] Blood Pressure Mean 69 71 Blood Pressure Mean [Right Arm] Blood Pressure Source Blood Pressure Position 02 Sat by Pulse Oximetry 96 96 96 Oxygen Delivery Method Room Air 02/13/25 16:30 02/13/25 17:00 02/13/25 17:11 Temperature 98.7 F Temperature Source Oral Pulse Rate 72 67 65 Pulse Rate [Right] Respiratory Rate 17 18 19 Blood Pressure 120/67 118/65 118/65 Blood Pressure [Right Arm] Blood Pressure Mean 76 84 Blood Pressure Mean [Right Arm] Blood Pressure Source Automatic Cuff Blood Pressure Position Sitting 02 Sat by Pulse Oximetry 96 96 Oxygen Delivery Method Room Air Room Air Room Air Lab Data Lab results reviewed: Yes I reviewed the patient's lab results. Lab Results 02/13/25 14:15: WBC 10.5, RBC 5.62, Hgb 16.8, Hct 50.1, MCV 89.1, MCH 29.9, MCHC 33.5, RDW 13.8, Plt Count 286, MPV 9.5, Neut % (Auto) 44.7, Lymph % (Auto) 42.0, [place] % (Auto) 10.9 H, Eos % (Auto) 1.8, Baso % (Auto) 0.5, Neut # (Auto) 4.7, Lymph # (Auto) 4.4, [place] # (Auto) 1.1 H, Eos # (Auto) 0.2, Baso # (Auto) 0.1, Sodium 139, Potassium 4.3, Chloride 107, Carbon Dioxide 22, Anion Gap 14.3, BUN 31 H, Creatinine 1.30 H, Estimated Creat Clear 109, Estimated GFR 56 L, Est GFR ( Amer) 67, Glucose 193 H, Calcium 9.1, Magnesium 1.6, Total Bilirubin 0.7, AST 31, ALT 36, Alkaline Phosphatase 71, Total Protein 7.9, Albumin 4.4, G lobulin 3.5 H, Albumin/Globulin Ratio 1.3, Lipase 144, Procalcitonin 0.262 02/13/25 16:01: Lactate 2.4 H 02/13/25 14:15 02/13/25 14:15 Orders (Tests/Meds): ED MEDICATIONS Discontinued Medications Generic Name Dose Route Start Last Admin Trade Name Tawny PRN Reason Stop Dose Admin Acetaminophen 1,000 mg 02/13/25 14:05 02/13/25 14:30 Acetaminophen 500mg Tab PO 02/13/25 14:06 1,000 mg ONCE ONE Administration Sodium Chloride 1,000 mls @ 999 mls/hr 02/13/25 14:05 02/13/25 14:30 Sod Chlor 0.9% 1000ml Bag IV 02/13/25 15:05 999 mls/hr .Q1H1M ONE Administration Iopamidol 75 ml 02/13/25 14:52 02/13/25 14:53 Iopamidol-370 (76%);100ml Bottle IV 02/13/25 14:53 75 ml ONCE ONE Administration Ketorolac Tromethamine 15 mg 02/13/25 14:05 02/13/25 14:31 Ketorolac 30mg/Ml Vial IV 02/13/25 14:06 15 mg ONCE ONE Administration Ondansetron HCl 4 mg 02/13/25 14:05 02/13/25 14:31 Ondansetron 4mg/2ml Vial IV 02/13/25 14:06 4 mg ONCE ONE Administration Sodium Chloride 10 ml 02/13/25 14:52 02/13/25 14:53 Sodium Chloride 0.9% 10ml Syr (Rad Only) IV 02/13/25 14:53 10 ml ONCE ONE Administration ORDERS Category Date Time Status CT abdomen pelvis w con Stat Cat Scan 02/13/25 14:06 Completed CBC w/Auto Diff [Complete Blood Count Auto Diff] Stat Lab 02/13/25 14:15 Completed CMP [Comprehensive Metabolic Panel] Stat Lab 02/13/25 14:15 Completed Lactic Acid Stat Lab 02/13/25 16:01 Completed Lipase Stat Lab 02/13/25 14:15 Completed Magnesium Stat Lab 02/13/25 14:15 Completed Procalcitonin Stat Lab 02/13/25 14:15 Completed Medical Decision Narrative: In summary patient is a 64-year-old male who presents to the emergency department for evaluation of 6 days of nausea vomiting diarrhea and abdominal pain. Patient is hemodynamically stable with a blood pressure 127/79 heart rate 65 with sinus rhythm on the bedside monitor breathing 18 times minute satting 95% on room air upon arrival, afebrile at 98. Zickel exam reveals a well- nourished well-developed morbidly obese 64-year-old gentleman who otherwise in no acute distress. Breath sounds clear and equal bilaterally to the bases with adventitious sounds cardiovascular's S1-S2 regular rate rhythm without murmurs gallops rubs or thrills abdomen is soft mildly tender in the right upper and lower quadrant however there there is no rebound guarding or rigidity bowel sounds normal active.. Differential diagnosis includes gastroenteritis versus DKA versus cholecystitis versus pancreatitis versus diverticulitis etc. Initial workup will be conducted with hematologic labs urinalysis stool panel CT scan abdomen pelvis with contrast. Initial interventions include crystalloid bolus Toradol Tylenol Zofran. Initial workup reviewed by me and patient's hematologic labs are nonactionable but was unable to provide a stool specimen and my informal interpretation of his imaging shows no acute intra-abdominal processes prior to radiology read. Please see final read for formal interpretation.. Upon repeat evaluation patient reports symptomatic improvement and is now tolerating oral intake. Given this patient is appropriate for discharge with a prescription for Zofran sent to his pharmacy and I have given him outpatient orders for diarrhea panel and patient will have close follow-up with his PCP strict return precautions. Critical Care Critical Care Time Critical Care Time: No
--- NOTE | 2025-02-13 14:06 | CT_ITS ---
FINAL REPORT TECHNIQUE: After the administration of intravenous contrast, axial images were obtained through the abdomen and pelvis by computed tomography. The study was performed with techniques to keep radiation dose as low as reasonably achievable, (ALARA). Individual dose reduction techniques using automated exposure control or adjustment of mA and/or kV according to the patient's size were employed. CLINICAL HISTORY: 6 days of NVD and abdominal pain FINDINGS: Abdomen: The lung bases are clear. The liver parenchyma is homogeneous. The gallbladder is present. The spleen, pancreas, and kidneys are unremarkable. There is a nodule in the right adrenal gland measuring 1.8 cm, slightly larger than previous. This is indeterminant. The left adrenal gland is unremarkable. There is dense vascular calcification of the abdominal aorta and iliac vessels. There is no free fluid or adenopathy. Pelvis: The urinary bladder is unremarkable. The appendix is not identified. There is no free fluid or adenopathy. IMPRESSION: Indeterminate right adrenal nodule. Dedicated thin section pre and post infused exam is required to fully characterize. Reviewed, Interpreted and Dictated by Ricky Hernandez MD Transcribed by Naz Muniz Authenticated and [facility]
--- OUTSIDE RECORDS SUMMARY | 2025-02-13 14:14 | XMS_ITS | Encounter Summary ---
Author Organization [facility] Address [address] [place] [address] Care Team Providers Care Technical Sales Specialist Name Role Phone Suzanne Chaudhari Primary Care Provider [phone] Reason for Visit * Reason Onset Date Comments Prior-authorization/insurance Verification 01/15 Encounter Details Date Type Department Care Team (Late st Contact Info) Description 01/15/2025 Telephone [facility] Endocrinology [address] [place] [address] Cassandra Lee, RUG WASHER [address] [facility] [address] [place] [address] Prior-authorization/in surance Verification Social History Tobacco Use Types Packs/Day Years Used Date Smoking Tobacco: Former Cigarettes 2 40 0 1981 - 08/29/2021 Smokeless Tobacco: Never Alcohol Use Standard Drinks/Week Comments No 0 (1 standard drink = 0.6 oz pur e alcohol) PHQ-2 Answer Date Recorded Patient Health Questionnaire-2 Score 0 11/19/2024 PHQ-2A Answer Date Recorded Patient Health Questionnaire-2 Score 0 07/06/2023 Sex and Gender Information Value Date Recorded Sex Assigned at Male 09/14/2022 10:56 PM EST Legal Sex Male 7:49 PM EDT Gender Identity Male 09/14/2022 10:56 PM EST Sexual Orientation Not on file documented as of this encounter Miscellaneous Notes * Telephone Encounter - Sandeep Carvajal, PharmD - 01/15/2025 3:47 PM EDT Prior authorization request received, however no PA is required. Medication: Insulin glargine-yfgn Additional info: Plan pays for Lantus - pharmacy has a paid claim. * Telephone Encounter - Sena Cameron - 01/15/2025 12:54 PM EDT Images from the original note were not included. Prior authorization requested for insulin Glargine-yfgn 100unit/ML pen- injectors. Ordered by Cassandra lee documented in this encounter Plan of Treatment Upcoming Encounters Date Type Department Care Team (Late st Contact Info) Description 03/05/2025 9:40 AM EDT Office Visit [facility] Endocrinology [address] [place] [address] Cassandra Lee, RUG WASHER [address] [facility] [address] [place] [id number] documented as of this encounter Visit Diagnoses Not on filedocumented in this encounter Additional Health Concerns Assessment Noted Time A fall risk assessment has been complete d for the patient 07/06/2023 10:32 AM EST A Body Mass Index follow-up plan has been documented for the patient 11/19/2024 10:56 AM EDT documented as of this encounter Care Teams Technical Sales Specialist Relationship Specialty Start Date End Date Suzanne Chaudhari PA [address] [place] [address] PCP - General 08/14/24 documented as of this encounter
--- OUTSIDE RECORDS SUMMARY | 2025-02-13 14:14 | XMS_ITS | Encounter Summary ---
Author Organization Healthcare Address [address] [place] [address] Care Team Providers Care Potable Water Treatment Operator Name Role Phone Suzanne Chaudhari Primary Care Provider [phone] Encounter Details Date Type Department Care Team (Late st Contact Info) Description 01/14/2025 Telephone [facility] Endocrinology [address] [place] [address] Cassandra Lee, BETTING CLERK [address] [facility] [address] [place] [address] Social History Tobacco Use Types Packs/Day Years [...] encounter Miscellaneous Notes * Telephone Encounter - Pari Castillo - 01/15/2025 10:43 AM EDT Returned pts call. Since titration pt will run out of insulin before refill. New script with current dose and MDD sent to pharmacy. Instructed pt to call back with any further questions or concerns. * Telephone Encounter - Jasmin Truong RN - 01/14/2025 3:41 PM EDT Returned pt's 's call. No answer. L/M and callback number. * Telephone Encounter - Stephanie Bonner - 01/14/2025 2:27 PM EDT Patient Phone Message Reason for Call: Pt is asking for a call back to discuss patients Lantus. Best contact number and optimal time of day to reach caller: [phone] Note: Please do not reply to this message. Follow-up communication and further actions as a result of this message need to be communicated with the patient directly, if the patient is not active onMyChart. If the patient is active on MyChart, they will receive notification of the communication/outcome via MyChart. documented in this encounter Plan of Treatment Upcoming Encounters Date Type Department Care Team (Late st Contact Info) Description 03/05/2025 9:40 AM EDT Office Visit [facility] Endocrinology [address] [place] [address] Cassandra Lee, BETTING CLERK [address] [place] [address] documented as of this encounter Visit Diagnoses Diagnosis Type 2 diabetes mellitus with other specified complication, with long-term current use of insulin ([facility]) documented in this encounter Additional Health Concerns Assessment Noted Time A fall risk assessment has been complete d for the patient 07/06/2023 10:32 AM EST A Body Mass Index follow-up plan has been documented for the patient 11/19/2024 10:56 AM EDT documented as of this encounter Care Teams Potable Water Treatment Operator Relationship Specialty Start Date End Date Suzanne Chaudhari PA [address] [place] [address] PCP - General 08/14/24 documented as of this encounter
--- OUTSIDE RECORDS SUMMARY | 2025-02-13 14:14 | XMS_ITS | Clinical Summary ---
Author Organization [facility] Address [address] [place] [address] Care Team Providers Care Yarn Skeins Examiner Name Role Phone Suzanne Chaudhari Primary Care Provider [phone] Allergies Active Allergy Reactions Criticality Noted Date Comments Isosorbide Headache High 01/18/2023 Penicillins Unknown - Patient st ates they do not know rxn details Low 05/22/2020 Medications Aspirin Buf,CaCarb-MgCa rb-MgO, 81 MG tablet TAKE 1 TABLET DAILY. Active atorvastatin (Lipitor) 80 MG tablet Take 1 tablet (80 mg) by mouth 1 (one) time each day. Active prasugrel (Effient) 10 MG tablet Take 1 tablet (10 mg) by mouth 1 (one) time each day. Active metoprolol succinate XL (Toprol-XL) 100 MG 24 hr tablet 0.5 tablets (50 mg) 1 (one) time each day. Active montelukast (Singulair) 10 MG tablet Take 1 tablet (10 mg) by mouth 1 (one) time each day. Active Multiple Vitamin (MULTI-VITAMIN DAILY PO) TAKE 1 TABLET DAILY. Active Azelastine HCl 137 MCG/SPRAY solution USE 1 SPRAY(S) IN EACH NOSTRIL TWICE DAILY Active fluticasone (Flonase) 50 MCG/ACT nasal spray USE 1 SPRAY(S) IN EACH NOSTRIL ONCE DAILY Active omeprazole (PriLOSEC) [address] capsule TAKE 1 CAPSULE BY MOUTH ONCE DAILY FOR GERD Active ergocalciferol (Vitamin D-2) 1.25 MG (69228 UT) capsule TAKE 1 CAPSULE Weekly Active cetirizine (ZyrTEC) 10 MG tablet TAKE 1 TABLET BY MOUTH ONCE DAILY NEEDED FOR ALLERGY SYMPTOMS Active bumetanide (Bumex) 2 MG tablet Take by mouth 1 (one) time each day. Active lisinopril 40 MG tablet Take 1 tablet (40 mg) by mouth 1 (one) time each day. Active spironolactone (Aldactone) 25 MG tablet Take by mouth 1 (one) time each day. Active Blood Glucose Monitoring Suppl ([employer] 2) w/Device kit device kit See administration instructions. Active ProAir HFA 108 (90 Base) MCG/ACT inhaler INHALE 1 PUFF BY MOUTH 4 TIMES DAILY NEEDED FOR SHORTNESS OF BREATH OR WHEEZING Active Advair Diskus 500-50 MCG/DOSE diskus inhaler INHALE 1 DOSE BY MOUTH TWICE DAILY 021 Active acetone, urine, test stripIndication s:Type 2 diabetes mellitus with other specified complication, with long-term current use of insulin ([facility]) 1 strip if needed for high blood sugar (illness, vomiting). Call clinic if positive. 25 each 2 023 Active Spiriva HandiHaler 18 MCG inhalation capsule INHALE 1 PUFF BY MOUTH ONCE DAILY; PUNCTURE CAP USING DEVICE; ONE DOSE=2 INHALATIONS 023 Active dilTIAZem CD (Cardizem CD) 240 MG 24 hr capsule 023 Active Insulin Pen Needle (Pen Rio 11/11 ) 31G X 5 MM miscIndications :Type 2 diabetes mellitus with other specified complication, with long-term current use of insulin ([facility]) Use 2 per day 180 each 3 023 Active Eliquis 5 MG tablet 024 Active glipiZIDE XL (Glucotrol XL) 10 MG 24 hr tabletIndicatio ns:Type 2 diabetes mellitus with other specified complication, with long-term current use of insulin ([facility]) Take 2 tablets (20 mg) by mouth 1 (one) time each day. Do not crush, chew, or split. 180 tablet 3 024 2024 Active metFORMIN XR (Glucophage-XR) 500 MG 24 hr tabletIndicatio ns:Type 2 diabetes mellitus with other specified complication, with long-term current use of insulin (CMS/HCC) Take 2 tablets (1,000 mg) by mouth 2 (two) times a day before meals. Do not crush, chew, or split. 360 tablet 3 024 2024 Active empagliflozin (Jardiance) 10 MGIndications:T ype 2 diabetes mellitus with other specified complication, with long-term current use of insulin ([facility]),Coron robert artery disease, unspecified vessel or lesion type, unspecified whether angina present, unspecified whether chick[place]om[place] or transplanted heart Take 1 tablet (10 mg) by mouth 1 (one) time each day. 90 tablet 3 024 2024 Active Semaglutide, 2 MG/DOSE, (Ozempic, 2 MG/DOSE,) 8 MG/3ML solution pen-injectorInd ications:Type 2 diabetes mellitus with other specified complication, with long-term current use of insulin ([facility]) Inject 2 mg under the skin 1 (one) time per week. 3 mL 5 025 2025 Active Continuous Glucose Sensor (Dexcom G7 Sensor) misc CHANGE 1 SESOR EVERY 10 DAYS 3 each 3 025 Active insulin glargine (Lantus SoloStar, Basaglar) 100 UNIT/ML injection penIndications: Type 2 diabetes mellitus with other specified complication, with long-term current use of insulin (CMS/HCC) Inject 33 units daily and titrate up as directed. MDD 50units 30 mL 3 025 Active Icosapent Ethyl (Vascepa) 1 g capsule TAKE 2 CAPSULES BY MOUTH TWICE DAILY WITH MEALS 120 capsule 025 Active insulin glargine (Lantus SoloStar, Basaglar) 100 UNIT/ML injection penIndications: Type 2 diabetes mellitus with other specified complication, with long-term current use of insulin ([facility]) Inject 28-30 Units under the skin every morning. 30 mL 3 025 2024 Discontinued(R eoanneer) Icosapent Ethyl (Vascepa) 1 g capsule TAKE 2 CAPSULES BY MOUTH TWICE DAILY WITH MEALS 120 capsule 2 025 2024 Discontinued Active Problems Problem Noted Date Diagnosed Date Diabetic ulcer of left midfo ot associated with type 2 diabetes mellitus, limited to breakdown of skin 07/06/2023 Morbid obesity 09/16/2021 Class 3 severe obesity with serious comorbidity and body mass index (BMI) of 40.0 to 44.9 in adult 06/26/2021 Type 2 diabetes mellitus, wi th long-term current use of insulin 03/05/2021 Neuropathy 03/05/2021 Obesity (BMI 30-39.9) 03/05/2021 Paresthesia 07/07/2020 CAD (coronary artery disease) 05/23/2020 Hyperlipidemia 05/23/2020 Hypertension 05/23/2020 Type 2 diabetes mellitus, uncontrolled 0 Encounters Date Type Department Care Team Description 02/08/2025 Refill [facility] Endocrinology [address] [place] [address] Cassandra Lee L, CABINETMAKER SUPERVISOR 01/15/2025 Telephone [facility] Endocrinology [address] [place] [address] Jeremy Leelett L, CABINETMAKER SUPERVISOR Prior-authorization/in surance Verification 01/14/2025 Telephone [facility] Endocrinology [address] [place] [address] Jeremy Leelett L, CABINETMAKER SUPERVISOR 01/02/2025 Refill [facility] Endocrinology [address] [place] [address] Jeremy Leelett L, CABINETMAKER SUPERVISOR 11/20/2024 Refill [facility] Endocrinology [address] [place] [address] Cassandra Lee APRN 11/19/2024 9:20 AM EDT Office Visit [facility] Endocrinology [address] [place] [phone] Cassandra Lee APRN Type 2 diabetes mellitus with other specified complication, with long-term current use of insulin ([facility]) (Primary Dx); Neuropathy; Hypertension, unspecified type; Hyperlipidemia, unspecified hyperlipidemia type; Coronary artery disease involving [place] heart, unspecified vessel or lesion type, unspecified whether angina present; Obesity (BMI 30-39.9) 11/19/2024 Travel 11/16/2024 Telephone [facility] Endocrinology [address] [place] [address] Cassandra Lee APRN 11/14/2024 Travel 11/13/2024 Telephone [facility] Endocrinology [address] [place] [address] Cassandra Lee APRN Prior-authorization/in surance Verification from Last 3 Months Immunizations Immunization Administration Dates Next Due Influenza, injectable, quadrivalent 07/05/2017 Influenza, injectable, quadr ivalent, preservative free 06/22/2022,06/17/2021,06/09/2020,09/24,10/19/2018 Influenza, seasonal, injectable 07/28/2016 Moderna COVID-19 Vaccine (Re d Cap) 12+ years 03/20/2021,02/20/2021 Pneumococcal 20-doron Conj Vaccine 09/28/2022 Pneumococcal Polysaccharide PPV23 07/28/2016 Tdap 01/27/2021 Family History Medical History Relation Name Comments Cardiac disorder Father Mabel Hernandez Diabetes Father Mabel Hernandez Hypertension Father Mabel Hernandez Lung disease Father Mabel Hernandez Obesity Father Mabel Hernandez Cirrhosis Mother Mary Hernandez Obesity Mother Mary Hernandez Relation Name Status Comments Father Mabel Hernandez Mother Mary Hernandez Social History Tobacco Use Types Packs/Day Years [...] PM EST Sexual Orientation Not on file Last Filed Vital Signs Vital Sign Reading Time Taken Comments Blood Pressure 118/75 11/19/2024 8:53 AM EDT Pulse 67 11/19/2024 8:53 AM EDT Temperature 36.3 C (97.4 F) 03/05/2021 8:07 AM EDT Respiratory Rate - - Oxygen Saturation - - Inhaled Oxygen Concentration - - Weight 130 kg (286 lb 9.6 oz) 11/19/2024 8:53 AM EDT Height 182.9 cm (6') 11/19/2024 8:53 AM EDT Body Mass Index 38.87 11/19/2024 8:53 AM EDT Plan of Treatment Upcoming Encounters Date Type Department Care Team (Late st Contact Info) Description 03/05/2025 9:40 AM EDT Office Visit [facility] End[facility] [address] [place] [address] Cassandra Lee L, CABINETMAKER SUPERVISOR [address] [place] [phone] Health Maintenance Due Date Last Done Comments Dental Oral Exam 1961 Dental Prophylaxis 1961 Dental X-Ray: Bitewings 1961 [facility]-HIV Screening 1961 [facility]-Hepatitis C Screening 1961 [facility]-/Child/Adol SDOH Screenings 1961 Diabetes: Dental Exam 1971 [facility]- SDOH Screenings 1979 [facility]-Adult SDOH Screenings 1979 CT Colonography 2006 Colonoscopy 2006 FIT-DNA 2006 FIT 2006 FOBT 2006 Sigmoidoscopy 2006 [facility]-Colorectal Cancer Screening 2006 [facility]-Lung Cancer Screening 2011 [facility]-Zoster Vaccines (1 of 2) 2011 [facility]-RSV Vaccine: 60+ Years or (1 - Risk 60-74 years 1-dose series) 2021 [id number] Vaccine (3 - season) 2024 03/20/2021, 02/20/2021 [facility]-Diabetes: Hemoglobin A1C 02/18/2025, 08/14/2024, 05/03/2024, Additional history exists [facility]-Influenza Vaccine (Season Ended) 2025 07/12/2023, 06/22/2022, 06/17/2021, Additional history exists Dental X-Ray: Full Mouth 07/29/2025 07/28/2022 [facility]-Depression Screening 11/19/2025 11/19/2024 [facility]-DTaP,Tdap,and Td Vaccines (2 - Td or Tdap) 01/27/2031 01/27/2021 [facility]-Pneumococcal Vaccine: 50+ Years Completed 09/28/2022, 07/28/2016 [facility]-Obesity Intervention Completed 025, 08/14/2024, 05/03/2024, Additional history exists HPV Vaccines Aged Out No longer eligi ble based on patient's age to complete this topic [facility]-HIB Vaccines Aged Out No longer e ligible based on patient's age to complete this topic [facility]-Hepatitis A Vaccines Aged Out No longer eligible based on patient's age to complete this topic [facility]-IPV Vaccines Aged Out No longer e ligible based on patient's age to complete this topic [facility]-Rotavirus Vaccines Aged Out No lo nger eligible based on patient's age to complete this topic Procedures Procedure Name Priority Date/Time Associated Diagnosis Comments POCT GLYCOSYLATED HEMOGLOBIN (HGB A1C) Routine 11/19/2024 9:04 AM EDT Type 2 diabetes mellitus with other specified complication, with long-term current use of insulin (CMS/HCC) PANORAMIC RADIOGRAPHIC IMAGE Routine 07/28/2022 8:00 AM EST Encounter to establish care from Last 3 Months or Most Recently Relevant to Health Maintenance Results * (ABNORMAL) POCT glycosylated hemoglobin (Hb A1C) (11/19/2024 9:04 AM EDT) POCT Hemoglobin A1C 7.2 <5.7% Non-Diabet ic % [facility] Kit Lot Number [id number] [facility] Kit Expiration Date 09/24 [facility]ALTHCARE [facility] Blood Venous blood specimen / Unknown 11/19/2024 9:04 AM EDT Cassandra Lee CABINETMAKER SUPERVISOR POINT OF CARE TEST ENTER/E DIT ORDERABLES Final Result [facility] [address] [place] [phone] from Last 3 Months Insurance [facility] MEDICA[facility] [employer] [employer] [facility] Care Teams Yarn Skeins Examiner Relationship Specialty Start Date End Date Suzanne Chaudhari PA [address] [place] [address] PCP - General 08/14/24
--- OUTSIDE RECORDS SUMMARY | 2025-02-13 14:14 | XMS_ITS | Encounter Summary ---
Author Organization [facility] Address [address] [place] [address] Care Team Providers Care Janitorial Account Manager Name Role Phone Suzanne Chaudhari Primary Care Provider [phone] Reason for Visit * Reason Comments Med Refill Encounter Details Date Type Department Care Team (Late st Contact Info) Description 02/08/2025 Refill [facility] [address] [place] [address] Cassandra Lee, FACILITIES OPERATIONS TECHNICIAN [address] [facility] [address] [place] [address] Social History Tobacco Use Types [...] on file documented as of this encounter Plan of Treatment Upcoming Encounters Date Type Department Care Team (Late st Contact Info) Description 03/05/2025 9:40 AM EDT Office Visit [facility] [address] [place] [phone] Cassandra Lee, FACILITIES OPERATIONS TECHNICIAN [address] [place] [phone] documented as of this encounter Visit Diagnoses Not on filedocumented in this encounter Additional Health Concerns Assessment Noted Time A fall risk assessment has been complete d for the patient 07/06/2023 10:32 AM EST A Body Mass Index follow-up plan has been documented for the patient 11/19/2024 10:56 AM EDT documented as of this encounter Care Teams Janitorial Account Manager Relationship Specialty Start Date End Date Suzanne Chaudhari PA [address] [place] [address] PCP - General 08/14/24 documented as of this encounter
--- OUTSIDE RECORDS SUMMARY | 2025-02-13 14:14 | XMS_ITS | Encounter Summary ---
Author Organization [facility] Address [address] [place] [address] Care Team Providers Care Splicing Machine Operator Name Role Phone Suzanne Chaudhari Primary Care Provider [phone] Reason for Visit * Reason Comments Med Refill Encounter Details Date Type Department Care Team (Late st Contact Info) Description 01/02/2025 Refill [facility] [address] [place] [address] Cassandra Lee, CHAIR SPRING ASSEMBLER [address] [facility] [address] [place] [address] Social History Tobacco Use Types [...] [facility] [address] [place] [address] Cassandra Lee, CHAIR SPRING ASSEMBLER [address] [place] [address] documented as of this encounter Visit Diagnoses Not on filedocumented in this encounter Additional Health Concerns Assessment Noted Time A fall risk assessment has been complete d for the patient 07/06/2023 10:32 AM EST A Body Mass Index follow-up plan has been documented for the patient 11/19/2024 10:56 AM EDT documented as of this encounter Care Teams Splicing Machine Operator Relationship Specialty Start Date End Date Suzanne Chaudhari PA [address] [place] [address] PCP - General 08/14/24 documented as of this encounter
[2025-02-13 14:29] LABS: Albumin Level 4.4 g/dl (3.5-5.0); Chloride 107 mmol/L (98-107); Potassium 4.3 mmoL/L (3.5-5.1); Sodium 139 mmol/L (136-145)
[2025-02-13 14:30] LABS: Basophils # 0.1 K/mm3 (0-0.2); Basophils % 0.5 % (0.1-2.0); Eosinophils # 0.2 Kmm3 (0.0-0.4); Eosinophils % 1.8 % (0.1-12.0); Hematocrit 50.1 % (42.0-52.0); Hemoglobin 16.8 g/dL (14.1-18.0); Immature Granulocytes # 0.01 10^3uL; Immature Granulocytes % 0.1 %; Lymphocytes # 4.4 K/mm3 (0.7-4.5); Mean Corpuscular HGB Conc 33.5 g/dL (31.8-35.4); Mean Corpuscular Hemoglobin 29.9 pg (27.0-31.2); Mean Corpuscular Volume 89.1 fl (80-94); Mean Platelet Volume 9.5 fl (7.4-10.4); Monocytes # 1.1 K/mm3 (0.1-1.0); Monocytes % 10.9 % (1.7-9.3); Neutrophils # 4.7 K/mm3 (1.8-7.8); Neutrophils % 44.7 % (37.0-80.0); Nucleated Red Blood Cells # 0 10^3/uL; Nucleated Red Blood Cells % 0 %; Platelet Count 286 K/mm3 (142-424); Red Blood Count 5.62 M/mm3 (4.60-6.20); Red Cell Distribution Width 13.8 % (11.5-17.5); Red Cell Distribution Width-SD 45.2 fL; White Blood Count 10.5 K/mm3 (4.8-10.8)
[2025-02-13] MEDS: ACETAMINOPHEN 500MG TAB 1000 MG PO (14:30)
[2025-02-13] MEDS: 0.9 % SODIUM CHLORIDE 1000ML 1,000 ML 999 ML IV (14:30)
[2025-02-13 14:31] LABS: Alanine Aminotransferase 36 U/L (12-78); Albumin/Globulin Ratio 1.3 (1.1-1.8); Anion Gap 14.3 mEq/L (5-15); Aspartate Amino Transferase 31 U/L (17-59); Blood Urea Nitrogen 31 mg/dl (9-20); Carbon Dioxide 22 mmol/L (22.0-30.0); Creatinine Clearance Estimated 109 mL/min (50-200); Estimated Glomerular Filt Rate 56 ml/min (>60); GFR (African American) 67 ML/MIN (>60); Globulin 3.5 g/dL (1.3-3.2); Total Protein,Serum 7.9 g/dl (6.3-8.2)
[2025-02-13] MEDS: ONDANSETRON 4MG/2ML VIAL 4 MG IV (14:31)
[2025-02-13] MEDS: KETOROLAC 30MG/ML VIAL 15 MG IV (14:31)
[2025-02-13 14:32] LABS: Alkaline Phosphatase 71 U/L (38-126); Bilirubin,Total 0.7 mg/dl (0.2-1.3); Calcium 9.1 mg/dl (8.4-10.2); Glucose 193 mg/dl (74-100); Lipase 144 U/L (23-300); Magnesium 1.6 mg/dl (1.6-2.3)
[2025-02-13] MEDS: SODIUM CHLORIDE 0.9% 10ML SYR (RAD ONLY) 10 ML IV (14:53)
[2025-02-13] MEDS: IOPAMIDOL-370 (76%);100ML BOTTLE 75 ML IV (14:53)
[2025-02-13 15:09] LABS: Procalcitonin 0.262 ng/mL (0.0-2.0)
--- NOTE | 2025-02-13 16:01 | PC.NURSE ---
I ROUNDED ON THE PT AND UPDATED THEM ON THE PLAN OF CARE. NO NEW COMPLAINTS. NO NEEDS VOICED. CALL [facility]AY IN REACH.
--- NOTE | 2025-02-13 16:16 | PC.NURSE ---
I CALLED AND SPOKE WITH VIPIN INQUIRING ABOUT THE CT RESULTS. VIPIN IS SENDING A MESSAGE TO CHECK ON A READ.
[2025-02-13 16:19] LABS: Lactic Acid 2.4 mmol/L (0.7-2.1)
--- NOTE | 2025-02-13 17:22 | PC.NURSE ---
Patient given Out Patient Order to collect stool specimen, educated on how to collect and return sample per Don.
[2025-02-13 20:04] LABS: Reflex Lactic Add Lactic Reflex
== END 2025-02-13 17:24 | disposition home or self-care (01) ==
PROVIDERS: Physician Assistant; Emergency Provider Emergency Medicine; PCP Family Medicine
DX: R10.84 Generalized abdominal pain (principal); R11.2 Nausea with vomiting, unspecified; R19.7 Diarrhea, unspecified; E66.01 Morbid (severe) obesity due to excess calories; Z87.891 Personal history of nicotine dependence; Z68.41 Body mass index [BMI] 40.0-44.9, adult
CPT/HCPCS: 74177; 80053; 83605; 83690; 83735; 84145; 85025; 96361; 96374; 96375; 99284; J1885; J2405; J7030; Q9967

== ENCOUNTER 2025-03-15 06:26 | Day surgery (SDC) | payer OTHER, SELFPAY ==
[2025-03-12 17:00] VITALS: BMI 40.4
--- NOTE | 2025-03-15 06:20 | P.HP_ITS ---
HPI HPI HPI: Patient is a 64-year-old male with history of COPD, morbid obesity, neuropathy, diabetes, chronic arterial occlusive disease, coronary artery disease, hypertension, hyperlipidemia, tobacco dependence who presents for follow-up colonoscopy. He had a colonoscopy with Dr. Harris in 2010. I performed colonoscopy in November 2016 and he had 4 tubular adenomas and 3 sessile serrated adenomas. I performed a follow-up colonoscopy on 05/15/2019 and there were multiple hyperplastic polyps. Recommendations were for a 2-year follow-up colonoscopy. He ultimately presented for follow-up colonoscopy on 12/23/2023. He was found to have a fair preparation. He had a total of 9 polyps removed at that time. Preparation was poor and visualization was limited. He had at least 3 tubular adenomas. Recommendations were for follow-up colonoscopy in 1 year given limited visualization. [facility] Disclaimer: The information contained in this section may have been updated after the patient was seen, as this information can be updated by other users. Medical History Preop examination Chest pain URI, acute Knee pain Paroxysmal A-fib Encounter for screening for malignant neoplasm of lung in current smoker with 30 pack year history or greater Allergic rhinitis Moderate persistent asthma COPD (chronic obstructive pulmonary disease) History of smoking 30 or more pack years Elevated IgE level Seasonal allergies Shortness of breath Dyspnea on exertion Diabetic foot PAD (peripheral artery disease) Vitamin D deficiency Edema CAD (coronary artery disease) Surgical History History of colonoscopy History of arthroscopic knee surgery Family History Other Coronary artery disease Diabetes Heart attack Hyperlipidemia Hypertension Social History (Updated 03/15/25 @ 06:48 by Maribell Serrano RN) Smoking Status: Former smoker tobacco type: cigarettes packs per day: 0 smoking status stop date: 2017 alcohol intake: never substance use type: denies use current occupational status: disabled Travel in the last 8 weeks?: None household members: spouse and children housing: house caffeine: Yes Have you lived/traveled outside US in past 30 days?: No Contact w/someone who lives/traveled outside US past 30 days?: No Exposure to someone with infectious disease in past 14 days?: No Do you have a fever (greater than 100.4 F or 38 C)?: No Have you tested positive for COVID-19?: No Exposed to someone with COVID-19 in past 14 days?: No Do you have a sore throat?: No Do you have a cough?: No Do you have any weakness?: No Do you have any diarrhea?: No Are you experiencing any unusual bleeding?: No Do you have any muscle aches/pain?: No Do you have any abdominal pain?: No Are you experiencing loss of taste or smell?: No Other Medical History Have you received the Flu Vaccine for this season: Yes Have you received the Pneumonia Vaccine: No Meds Home Medications and Allergies Home Medications ?Medication ?Instructions ?Recorded ?Confirmed ?Type multivitamin 1 tab PO QAM Supplement 02/1303/07/25 History ipratropium 0.5 mg-albuterol 3 mg 3 ml inhalation QID PRN shortness 08/18/21 03/07/25 Rx (2.5 mg base)/3 mL nebulization of breath or wheezing #180 mL soln glipizide 10 mg tablet, extended See Rx Instructions . Route 02/04/22 03/07/25 History release 24 hr .COMPLEX Diabetes metformin 500 mg tablet,extended 1,000 mg PO BID Diabe remedios 12/29/22 03/07/25 History release 24 hr icosapent ethyl 1 gram capsule 2 g PO BID 07/12/2306/22 History insulin glargine 100 unit/mL (3 28 unit SQ HS Diabetes 03/08/24 03/07/25 History mL) subcutaneous pen ketoconazole 2 % topical cream applic topical 03/08/24 03/07/25 History spironolactone 25 mg tablet See Rx Instructions .Route 04/02/24 03/07/25 Rx .COMPLEX #180 tabs albuterol sulfate 90 mcg/actuation 1 inh inhalation QI D PRN shortness 05/03/24 03/07/25 Rx aerosol inhaler of breath or wheezing 90 day s #8.5 grams azelastine 137 mcg (0.1 %) nasal 2 spray intranasal BI D allergies 05/03/24 03/07/25 Rx spray 90 days #30 mL fluticasone 500 mcg-salmeterol 50 1 inh inhalation BID #180 ea 05/03/24 03/07/25 Rx mcg/dose blistr powdr for inhalation (Advair Diskus) fluticasone propionate 50 1 spray intranasal BID 90 da ys #48 05/03/24 03/07/25 Rx mcg/actuation nasal grams spray,suspension (Flonase Allergy Relief) montelukast 10 mg tablet 10 mg PO DAILY #90 tabs 01/1903/07/25 Rx (Singulair) metoprolol succinate 50 mg See Rx Instructions .Route 07/09/24 03/07/25 Rx tablet,extended release 24 hr .COMPLEX #90 tabs apixaban 5 mg tablet (Eliquis) See Rx Instructions .Ro [place] 07/30/24 03/07/25 Rx .COMPLEX #180 tabs ketoconazole 2 % shampoo topical 09/18/24 03/07/25 Hi story diltiazem HCl 240 mg See Rx Instructions .Route 0 10/25/24 03/07/25 Rx capsule,extended release 24 hr .COMPLEX #180 caps empagliflozin 10 mg tablet 10 mg PO DAILY Type 2 diabe remedios 11/05/24 03/07/25 History (Jardiance) lisinopril 40 mg tablet 40 mg PO DAILY #90 tabs 10/2803/07/25 Rx ammonium lactate 12 % topical cream 1 applic topical B ID dry skin, 12/12/24 03/07/25 Rx callus care 30 days #385 grams cetirizine 10 mg tablet See Rx Instructions .Route 0 01/04/25 03/07/25 Rx .COMPLEX #90 tabs omeprazole 40 mg capsule,delayed See Rx Instructions . Route 01/17/25 03/07/25 Rx release .COMPLEX #90 caps cholecalciferol (vitamin D3) 50 50 mcg PO DAILY #90 ca ps 01/20/25 03/07/25 Rx mcg (2,000 unit) capsule atorvastatin 80 mg tablet See Rx Instructions .Route 0 01/22/25 03/07/25 Rx .COMPLEX #90 tabs semaglutide 0.25 mg or 0.5 mg (2 0.25 mg SQ WEEKLY 03/07/25 History mg/3 mL) subcutaneous pen injector (Ozempic) bumetanide 2 mg tablet See Rx Instructions .Route 0 02/25/25 03/07/25 Rx .COMPLEX #60 tabs sodium,potassium,mag sulfates 17.5 See Rx Instructions PO .COMPLEX 02/26/25 03/07/25 Rx gram-3.13 gram-1.6 gram oral soln #354 mL (Suprep Bowel Prep Kit) New Prescriptions to Start Prescriptions: Allergies Allergy/AdvReac Type Severity Reaction Status Date / Time Penicillins Allergy Severe SOA Verified 03/15/25 06:52 isosorbide (From Imdur) AdvReac Intermediate Headache Verified 03/15/25 06:52 Exam Data for Last 24 hours I & O for Last 24 hours: Intake & Output 03/12/25 03/13/25 03/14/25 03/15/25 11:59 11:59 11:59 11:59 Weight 288 lb 12.889 oz Constitutional Constitutional: no acute distress *Routine HEENT Exam Head: Present normocephalic Eye: Present EOMI and PERRL ENT: Present mucous membranes moist *Routine Neck Exam Neck: Present supple; Absent lymphadenopathy *Routine Respiratory Exam Respiratory: Present CTA bilaterally *Routine Cardiovascular Exam Cardiovascular: Present RRR *Routine Abdominal Exam Abdominal: Present soft and normoactive bowel sounds; Absent tenderness *Routine Rectal Exam Rectal:: deferred *Routine Genitalia Exam Genitalia:: deferred *Routine Extremities Exam Extremities: Absent cyanosis, clubbing or edema *Routine Skin Exam Skin: Present warm; Absent rash *Routine Neurological Exam Neurological: Present alert and oriented X3 Assessment and Plan *Assessment and plan (1) Tubular adenoma of colon: Status: Acute Category: Medical Code(s): D12.6 - Benign neoplasm of colon, unspecified Plan Colonoscopy
[2025-03-15 06:35] VITALS: BP 124/58; PULSE 68; RESP 18; TEMP 36.3; O2SAT 97
[2025-03-15] MEDS: LACTATED RINGERS 1000ML 1,000 ML 50 ML IV (06:51)
--- NOTE | 2025-03-15 07:08 | P.PNANES_ITS ---
[facility] Disclaimer: The information contained in this section may have been updated after the patient was seen, as this information can be updated by other users. Medical History Preop examination Chest pain URI, acute Knee pain Paroxysmal A-fib Encounter for screening for malignant neoplasm of lung in current smoker with 30 pack year history or greater Allergic rhinitis Moderate persistent asthma COPD (chronic obstructive pulmonary disease) History of smoking 30 or more pack years Elevated IgE level Seasonal allergies Shortness of breath Dyspnea on exertion Diabetic foot PAD (peripheral artery disease) Vitamin D deficiency Edema CAD (coronary artery disease) Surgical History History of colonoscopy History of arthroscopic knee surgery Family History Other Coronary artery disease Diabetes Heart attack Hyperlipidemia Hypertension Social History (Updated 03/15/25 @ 06:48 by Maribell Serrano RN) Smoking Status: Former smoker tobacco type: cigarettes packs per day: 0 smoking status stop date: 2017 alcohol intake: never substance use type: denies use current occupational status: disabled Travel in the last 8 weeks?: None household members: spouse and children housing: house caffeine: Yes Have you lived/traveled outside US in past 30 days?: No Contact w/someone who lives/traveled outside US past 30 days?: No Exposure to someone with infectious disease in past 14 days?: No Do you have a fever (greater than 100.4 F or 38 C)?: No Have you tested positive for COVID-19?: No Exposed to someone with COVID-19 in past 14 days?: No Do you have a sore throat?: No Do you have a cough?: No Do you have any weakness?: No Do you have any diarrhea?: No Are you experiencing any unusual bleeding?: No Do you have any muscle aches/pain?: No Do you have any abdominal pain?: No Are you experiencing loss of taste or smell?: No [facility] Anesthesia Checklist Patient Identification Patient Identification: Arm Band and Verbal (Name & ) Structural Data Admitted From: Home Planned Operative Procedure/s: colonoscopy Consent for Planned Operative Procedure(s) Verified: Yes Verified Documents: Surgical Consent NPO Status Verified Time NPO: 00:00 Chart Verification Results Verified: None Additional verifications Anesthesia Reactions: No Hx Blood Transfusions: No Blood Transfusion Reaction: No Airway Assessment Mallampati Score:: Class II C-Spine Mobility Assessed: Yes TMJ Mobility Assessed: Yes Dentition: Edentulous Neurological Assessment Level of Consciousness: Awake, Alert and Appropriate Hx Seizures: No Numbness or tingling in extremities: No Anesthesia Plan Anesthesia Risk discussed: Yes Anesthesia Plan: Verified ASA Class: III Anesthesia Type: MAC
--- NOTE | 2025-03-15 07:45 | HMH.SCOPE ---
Procedure: Date: 03/15/25 Patient Date of :: 1960 Procedure Performed:: Total colonoscopy to terminal ileum with multiple polypectomy Indications:: Patient is a 64-year-old male with history of COPD, morbid obesity, neuropathy, diabetes, chronic arterial occlusive disease, coronary artery disease, hypertension, hyperlipidemia, tobacco dependence who presents for follow-up colonoscopy. He had a colonoscopy with Dr. Harris in 2010. I performed colonoscopy in November 2016 and he had 4 tubular adenomas and 3 sessile serrated adenomas. I performed a follow-up colonoscopy on 05/15/2019 and there were multiple hyperplastic polyps. Recommendations were for a 2-year follow-up colonoscopy. He ultimately presented for follow-up colonoscopy on 12/23/2023. He was found to have a fair preparation. He had a total of 9 polyps removed at that time. Preparation was poor and visualization was limited. He had at least 3 tubular adenomas. Recommendations were for follow-up colonoscopy in 1 year given limited visualization. . Performing Provider:: Nik Liu MD Referring Provider:: José Arreaga MD . Sedation:: MAC sedation Procedure:: Patient history was obtained and appropriate physical examination was performed. Patient's medications and allergies were reviewed. Informed consent was obtained after explaining the benefits, alternatives, and risks of the procedure including, but not limited to, bleeding, perforation, missed lesions, and adverse reaction to anesthesia medications. Patient was transported to endoscopy procedure room. Patient was connected to monitoring devices. Throughout the procedure the patient's blood pressure, pulse, and oxygen saturations were monitored continuously. Patient identification and planned procedure were verified by the staff. Patient was positioned in lateral decubitus position. Digital anorectal exam was performed. Variable stiffness Olympus colonoscope was inserted and advanced under direct visualization to the cecum. Adequacy of the colonic preparation was noted. The colonoscope was advanced a short distance into the terminal ileum. The colonoscope was then slowly withdrawn while carefully examining the color, texture, anatomy, and integrity of the mucosoa circumferentially. Within the rectum retroflexion was performed. Colonoscope was then withdrawn. Impression: Colonic preparation was good. In the descending colon there was a several millimeter adenomatous appearing polyp removed with cold snare. In the proximal sigmoid colon there was a diminutive possible polyp removed with biopsy forceps. In the distal sigmoid colon there were several polyps, 2 of which were removed with snare and to remove the biopsy. In the rectosigmoid region there were multiple hyperplastic appearing polyps, too numerous to count, larger and potentially more suspicious were sampled with biopsy forceps and 1 was removed with cold snare. Findings:: Polyps as noted above. Total of 12 polyps removed. Majority of these appear to be likely hyperplastic. Descending colon polyp likely adenomatous however. Recommendations:: Follow-up colonoscopy pending pathology. Likely 2 or 3 years Complications:: None immediately apparent Estimated blood obtained (mL): 1 Colonoscopy Component Colonoscopy Component Was a colonoscopy performed during today's procedure?: Yes Recommended follow up colonoscopy of at least 10 years?: No If no, follow up colonoscopy recommended in ___ years?: See above Reason for not recommending >/= 10 yr follow-up interval?: See above
[2025-03-15 07:54] VITALS: BP 90/54; PULSE 72; RESP 18; TEMP 36.1; O2SAT 93
[2025-03-15 07:56] VITALS: BP 90/54; PULSE 68; RESP 16; O2SAT 94
[2025-03-15 08:16] VITALS: BP 116/65; PULSE 65; RESP 18; TEMP 36.6; O2SAT 98
[2025-03-15 08:26] VITALS: BP 103/63; PULSE 74; RESP 18; O2SAT 95
[2025-03-15 12:46] LABS: POC Glucose,Bedside 135 (70-110)
== END 2025-03-15 08:16 | disposition home or self-care (01) ==
PROVIDERS: PCP Family Medicine; Visit Provider Surgery
PROC: 0DJD8ZZ Inspection of Lower Intestinal Tract, Via Natural or Artificial Opening Endoscopic (ICD-10-PCS; CPT 45380; principal; 2025-03-15 07:30)
DX: D12.4 Benign neoplasm of descending colon (principal); D12.5 Benign neoplasm of sigmoid colon; K63.5 Polyp of colon; Z86.0101 Personal history of adenomatous and serrated colon polyps; Z86.0102 Personal history of hyperplastic colon polyps; E66.01 Morbid (severe) obesity due to excess calories; J44.9 Chronic obstructive pulmonary disease, unspecified; E11.40 Type 2 diabetes mellitus with diabetic neuropathy, unspecified; I25.10 Atherosclerotic heart disease of native coronary artery without angina pectoris; E78.5 Hyperlipidemia, unspecified; E11.51 Type 2 diabetes mellitus with diabetic peripheral angiopathy without gangrene; I10 Essential (primary) hypertension; J45.40 Moderate persistent asthma, uncomplicated; I48.0 Paroxysmal atrial fibrillation; E55.9 Vitamin D deficiency, unspecified; Z68.41 Body mass index [BMI] 40.0-44.9, adult; Z87.891 Personal history of nicotine dependence; Z88.8 Allergy status to other drugs, medicaments and biological substances; Z88.0 Allergy status to penicillin; Z79.899 Other long term (current) drug therapy; Z79.84 Long term (current) use of oral hypoglycemic drugs; Z79.4 Long term (current) use of insulin; Z79.51 Long term (current) use of inhaled steroids; Z79.01 Long term (current) use of anticoagulants; Z79.85 Long-term (current) use of injectable non-insulin antidiabetic drugs; Z91.09 Other allergy status, other than to drugs and biological substances
CPT/HCPCS: 45380; 45385; 82962; J2003; J2704; J7120

== ENCOUNTER 2025-05-06 12:38 | Outpatient (CLI) | payer OTHER, SELFPAY ==
--- OUTSIDE RECORDS SUMMARY | 2025-05-06 12:40 | XMS_ITS | Clinical Summary ---
Author Organization [facility] Address [address] [place] [address] Care Team Providers Care Scrub Woman Name Role Phone Suzanne Chaudhari Primary Care Provider [phone] Allergies Active Allergy Reactions Criticality Noted Date [...] GERD Active ergocalciferol (Vitamin D-2) 1.25 MG (36496 UT) capsule TAKE 1 CAPSULE Weekly Active [...] each day. Active Blood Glucose Monitoring Suppl (NoviMedicine 2) w/Device kit device kit See administration [...] complication, with long-term current use of insulin ([facility]) 1 strip if needed for high blood sugar (illness, vomiting). Call clinic if positive. 25 each 2 023 Active Spiriva HandiHaler 18 MCG inhalation capsule INHALE 1 PUFF BY MOUTH ONCE DAILY; PUNCTURE CAP USING DEVICE; ONE DOSE=2 INHALATIONS 023 Active dilTIAZem CD (Cardizem CD) 240 MG 24 hr capsule 023 Active Insulin Pen Needle (Pen [place] 11/11 ) 31G X 5 MM miscIndications :Type 2 diabetes mellitus with other specified complication, with long-term current use of insulin ([facility]) Use 2 per day 180 each 3 023 Active Eliquis 5 MG tablet 024 Active glipiZIDE XL (Glucotrol XL) 10 MG 24 hr tabletIndicatio ns:Type 2 diabetes mellitus with other specified complication, with long-term current use of insulin ([facility]) Take 2 tablets (20 mg) by mouth 1 (one) time each day. Do not crush, chew, or split. 180 tablet 3 Active metFORMIN XR (Glucophage-XR) 500 MG 24 hr tabletIndicatio ns:Type 2 diabetes mellitus with other specified complication, with long-term current use of insulin ([facility]) Take 2 tablets (1,000 mg) by mouth 2 (two) times a day before meals. Do not crush, chew, or split. 360 tablet 3 024 2024 Active empagliflozin (Jardiance) 10 MGIndications:T ype 2 diabetes mellitus with other specified complication, with long-term current use of insulin ([facility]),Coron robert artery disease, unspecified vessel or lesion type, unspecified whether angina present, unspecified whether [place] or transplanted heart Take 1 tablet (10 mg) by mouth 1 (one) time each day. 90 tablet 3 024 2024 Active insulin glargine (Lantus SoloStar, Basaglar) 100 UNIT/ML injection penIndications: Type 2 diabetes mellitus with other specified complication, with long-term current use of insulin ([facility]) Inject 33 units daily and titrate up as directed. MDD 50units 30 mL 3 Active semaglutide (Ozempic, 2 MG/DOSE,) 8 MG/3ML solution pen-injectorInd ications:Type 2 diabetes mellitus with other specified complication, with long-term current use of insulin ([facility]) Inject 2 mg under the skin 1 time per week. 9 mL 3 025 2025 Active Icosapent Ethyl (Vascepa) 1 g capsule TAKE 2 CAPSULES BY MOUTH TWICE DAILY WITH MEALS 120 capsule 3 025 Active Continuous Glucose Sensor (Dexcom G7 Sensor) misc CHANGE 1 SENSOR EVERY 10 DAYS 3 each 2 Active Continuous Glucose Sensor (Dexcom G7 Sensor) misc CHANGE 1 SESOR EVERY 10 DAYS 3 each 3 025 2024 Discontinued Active Problems Problem Noted [...] Encounters Date Type Department Care Team Description 05/01/2025 Refill [facility] Endocrinology [address] [place] [address] Cassandra Lee, SIDE HEMMER 03/06/2025 Refill [facility] Endocrinology [address] [place] [address] Cassandra Lee, SIDE HEMMER 03/05/2025 9:40 AM EDT Office Visit [facility] Endocrinology [address] [place] [address] Cassandra Lee, SIDE HEMMER Type 2 diabetes mellitus with other specified complication, with long-term current use of insulin ([facility]) (Primary Dx); Neuropathy; Hypertension, unspecified type; Hyperlipidemia, unspecified hyperlipidemia type; Obesity (BMI 30-39.9) 03/05/2025 Travel 03/01/2025 Travel 02/08/2025 Refill [facility] Endocrinology [address] [place] [address] Cassandra Lee, SIDE HEMMER from Last 3 Months Immunizations Immunization Administration [...] 0 1981 - 08/29/2021 Smokeless Tobacco: Never Tobacco Cessation:Counseling Given: Not Answered Alcohol Use Standard Drinks/Week Comments No 0 [...] Sign Reading Time Taken Comments Blood Pressure 129/80 03/05/2025 9:28 AM EDT Pulse 89 03/05/2025 9:28 AM EDT Temperature 36.3 C (97.4 F) 03/05/2021 8:07 AM EDT Respiratory Rate - - Oxygen Saturation - - Inhaled Oxygen Concentration - - Weight 132 kg (289 lb 14.5 oz) 03/05/2025 9:28 A M EDT Height 182.9 cm (6' 0.01 ) 03/05/2025 9:28 AM ED T Body Mass Index 39.31 03/05/2025 9:28 AM EDT Plan of Treatment Upcoming Encounters Date Type Department Care Team (Late st Contact Info) Description 06/12/2025 9:20 AM EDT Office Visit [facility] Endocrinology [address] [place] [address] Cassandra Lee, SIDE HEMMER [address] [facility] [address] [place] [address] Health Maintenance Due Date Last Done Comments [...] - Risk 60-74 years 1-dose series) 2021 [id number] Vaccine (3 - 2024- season) 2025 03/20/2021, 02/20/2021 [facility]-Influenza Vaccine (#1) 04/29/202507/12, 06/22/2022, 06/17/2021, Additional history exists [facility]-Diabetes: Hemoglobin A1C 06/04/202503/2025, 11/19/2024, 08/14/2024, Additional history exists Dental X-Ray: Full Mouth 07/29/2025 07/28/2022 [facility]-Depression Screening 11/19/2025 11/19/2024 [facility]-DTaP,Tdap,and Td Vaccines (2 - Td or Tdap) 01/27/2031 01/27/2021 [facility]-Pneumococcal Vaccine: 50+ Years Completed 09/28/2022, 07/28/2016 [facility]-Obesity Intervention Completed 025, 11/19/2024, 08/14/2024, Additional history exists HPV Vaccines Aged Out [...] Comments POCT GLYCOSYLATED HEMOGLOBIN (HGB A1C) Routine 03/05/2025 9:42 AM EDT Type 2 diabetes mellitus with other specified complication, with long-term current use of insulin ([facility]) PANORAMIC RADIOGRAPHIC IMAGE Routine 07/28/2022 8:00 AM EST Encounter to establish care from Last 3 Months or Most Recently Relevant to Health Maintenance Results * POCT glycosylated hemoglobin (Hb A1C) (03/05/2025 9:42 AM EDT) POCT Hemoglobin A1C 7.2 <5.7% Non-Diabet ic % [facility] Kit Lot Number [id number] [facility] Kit Expiration Date 12/26/26 [facility] Blood Venous blood specimen / Unknown 03/05/2025 9:42 AM EDT us Cassandra Lee SIDE HEMMER POINT OF CARE TEST ENTER/E DIT ORDERABLES Final Result [facility] [address] [place] [id number] from Last 3 Months Insurance AETNA [facility] MEDICAID [facility] MEDICAID DENTAL Care Teams Scrub Woman Relationship Specialty Start Date End Date Suzanne Chaudhari PA [address] [place] [address] PCP - General 08/14/24
--- OUTSIDE RECORDS SUMMARY | 2025-05-06 12:40 | XMS_ITS | Encounter Summary ---
Author Organization [facility] Address [address] [place] [address] Care Team Providers Care Route Driver Salesperson Name Role Phone Suzanne Chaudhari Primary Care Provider [phone] Reason for Visit * Reason Comments Med Refill Encounter Details Date Type Department Care Team (Late st Contact Info) Description 05/01/2025 Refill [facility] Endocrinology [address] [place] [address] Cassandra Lee, ULTRA SOUND TECHNICIAN [address] [facility] [address] [place] [address] Social History Tobacco Use Types [...] encounter Miscellaneous Notes * Telephone Encounter - Cindy, Lily L, PharmD - 05/01/2025 11:28 AM EDT Refill request does not meet protocol. Sending to clinic for review. Additional info: Medication not on protocol. documented in this encounter Plan of Treatment Upcoming Encounters Date Type Department Care Team (Late st Contact Info) Description 06/12/2025 9:20 AM EDT Office Visit [facility] Endocrinology [address] [place] [phone] Cassandra Lee, ULTRA SOUND TECHNICIAN [address] [facility] [address] [place] [address] documented as of this encounter Visit Diagnoses Not on filedocumented in this encounter Additional Health Concerns Assessment Noted Time A fall risk assessment has been complete d for the patient 07/06/2023 10:32 AM EST A Body Mass Index follow-up plan has been documented for the patient 03/05/2025 10:37 AM EDT documented as of this encounter Care Teams Route Driver Salesperson Relationship Specialty Start Date End Date Suzanne Chaudhari PA [address] [place] [address] PCP - General 08/14/24 documented as of this encounter
--- NOTE | 2025-05-06 12:56 | CT_ITS ---
FINAL REPORT TECHNIQUE: Thin section axial images were obtained through the lungs using a low-dose technique per lung cancer screening protocol. Reconstruction images were obtained using the axial data. Exam was performed using dose reduction technique. This study was performed with techniques to keep radiation doses as low as reasonably achievable (ALARA). Individualized dose reduction techniques using automated exposure control or adjustment of mA and/or kV according to the patient's size were employed. CLINICAL HISTORY: lung cancer screening - Sug 2024 former smoker quit 7 years ago [id number] years COMPARISON: 04/27/2024 FINDINGS: CTDLvol: 2.90 DLP: 97.42 Former smoker for 7 years 76 pack year history Lungs: No acute pulmonary abnormality. The 2 mm subpleural posterior right upper lobe nodule seen on the prior examination is stable in appearance, best seen on image 24 of series 4. No other nodules are identified. Scarring is noted in the right lung base, also stable. Lymph nodes: No thoracic lymphadenopathy. Mediastinum: Heart size is normal. Prominent coronary artery calcifications are noted. Pleura/pericardium: No pleural or pericardial effusion. Other: The previously noted right adrenal nodule, 13 mm in size, is stable. IMPRESSION: Stable 2 mm subpleural posterior right upper lobe nodule as described, without new nodules identified. Lung RADS: 2S, the S designation for coronary artery calcifications. Recommendation: 12-month follow-up LDCT Reviewed, Interpreted and Dictated by Juanita Cain MD Transcribed by Rita Andrade Authenticated and [facility]
== END 2025-05-06 23:59 | disposition home or self-care (01) ==
LOC: RAD 12:38
PROVIDERS: PCP Family Medicine; Visit Provider Internal Medicine Pulmonary Disease
DX: I25.10 Atherosclerotic heart disease of native coronary artery without angina pectoris (principal); R91.1 Solitary pulmonary nodule; Z12.2 Encounter for screening for malignant neoplasm of respiratory organs; F17.210 Nicotine dependence, cigarettes, uncomplicated
CPT/HCPCS: 71271

== ENCOUNTER 2025-05-17 08:29 | Outpatient (CLI) | payer OTHER, SELFPAY ==
--- OUTSIDE RECORDS SUMMARY | 2025-05-17 08:38 | XMS_ITS | Encounter Summary ---
Author Organization [facility] Address [address] [place] [address] Care Team Providers Care Marine Steamfitter Name Role Phone Suzanne Chaudhari Primary Care Provider [phone] Reason for Visit * Reason Comments Med Refill Encounter Details Date Type Department Care Team (Late st Contact Info) Description 05/01/2025 Refill [facility] [address] [place] [address] Cassandra Lee, SHIRT FINISHER [address] [facility] [address] [place] [address] Social History Tobacco Use Types [...] Description 06/12/2025 9:20 AM EDT Office Visit [facility] Endocrinology [address] [place] [phone] Cassandra Lee, SHIRT FINISHER [address] [facility] [address] [place] [address] documented as of this encounter Visit Diagnoses Not on filedocumented in this encounter Additional Health Concerns Assessment Noted Time A fall risk assessment has been complete d for the patient 07/06/2023 10:32 AM EST A Body Mass Index follow-up plan has been documented for the patient 03/05/2025 10:37 AM EDT documented as of this encounter Care Teams Marine Steamfitter Relationship Specialty Start Date End Date Suzanne Chaudhari PA [address] [place] [address] PCP - General 08/14/24 documented as of this encounter
--- OUTSIDE RECORDS SUMMARY | 2025-05-17 08:38 | XMS_ITS | Clinical Summary ---
Author Organization [facility] Address [address] [place] [address] Care Team Providers Care Petroleum Engineering Teacher Name Role Phone Suzanne Chaudhari Primary Care Provider [phone] Allergies Active Allergy Reactions Criticality Noted Date [...] GERD Active ergocalciferol (Vitamin D-2) 1.25 MG (24815 UT) capsule TAKE 1 CAPSULE Weekly Active [...] each day. Active Blood Glucose Monitoring Suppl (NexMed 2) w/Device kit device kit See administration [...] complication, with long-term current use of insulin ([facility]) 1 strip if needed for high blood sugar (illness, vomiting). Call clinic if positive. 25 each 2 023 Active Spiriva HandiHaler 18 MCG inhalation capsule INHALE 1 PUFF BY MOUTH ONCE DAILY; PUNCTURE CAP USING DEVICE; ONE DOSE=2 INHALATIONS 023 Active dilTIAZem CD (Cardizem CD) 240 MG 24 hr capsule 023 Active Insulin Pen Needle (Pen [place] 11/11 ) 31G X 5 MM miscIndications :Type 2 diabetes mellitus with other specified complication, with long-term current use of insulin ([facility]) Use 2 per day 180 each 3 023 Active Eliquis 5 MG tablet 024 Active glipiZIDE XL (Glucotrol XL) 10 MG 24 hr tabletIndicatio ns:Type 2 diabetes mellitus with other specified complication, with long-term current use of insulin ([facility]) Take 2 tablets (20 mg) by mouth 1 (one) time each day. Do not crush, chew, or split. 180 tablet 3 Active metFORMIN XR (Glucophage-XR) 500 MG 24 hr tabletIndicatio ns:Type 2 diabetes mellitus with other specified complication, with long-term current use of insulin ([facility]) Take 2 tablets (1,000 mg) by mouth 2 (two) times a day before meals. Do not crush, chew, or split. 360 tablet 3 024 2024 Active empagliflozin (Jardiance) 10 MGIndications:T ype 2 diabetes mellitus with other specified complication, with long-term current use of insulin ([facility]),Coron robert artery disease, unspecified vessel or lesion type, unspecified whether angina present, unspecified whether [place] or transplanted heart Take 1 tablet (10 mg) by mouth 1 (one) time each day. 90 tablet 3 024 2024 Active insulin glargine (Lantus SoloStar, Basaglar) 100 UNIT/ML injection penIndications: Type 2 diabetes mellitus with other specified complication, with long-term current use of insulin ([facility]) Inject 33 units daily and titrate up as directed. MDD 50units 30 mL 3 Active semaglutide (Ozempic, 2 MG/DOSE,) 8 MG/3ML solution pen-injectorInd ications:Type 2 diabetes mellitus with other specified complication, with long-term current use of insulin ([facility]) Inject 2 mg under the skin 1 [...] Department Care Team Description 05/01/2025 Refill [facility] Endocrinology [address] [place] [address] Cassandra Lee, ANIMAL DAMAGE CONTROL AGENT 03/06/2025 Refill [facility] Endocrinology [address] [place] [address] Cassandra Lee, ANIMAL DAMAGE CONTROL AGENT 03/05/2025 9:40 AM EDT [facility] Endocr[facility]ology [address] [place] [address] Cassandra Lee, ANIMAL DAMAGE CONTROL AGENT Type 2 diabetes mellitus with other specified complication, with long-term current use of insulin ([facility]) (Primary Dx); Neuropathy; Hypertension, unspecified type; Hyperlipidemia, unspecified hyperlipidemia type; Obesity (BMI 30-39.9) 03/05/2025 Travel 03/01/2025 Travel from Last 3 Months Immunizations Immunization Administration [...] Description 06/12/2025 9:20 AM EDT Office Visit [facility] [address] [place] [address] Cassandra Lee, ANIMAL DAMAGE CONTROL AGENT [address] [place] [address] Health Maintenance Due Date Last Done Comments [...] - Risk 60-74 years 1-dose series) 2021 [id number] Vaccine (3 - 2024- season) 2025 03/20/2021, [...] complication, with long-term current use of insulin ([facility]) PANORAMIC RADIOGRAPHIC IMAGE Routine 07/28/2022 8:00 AM EST Encounter to establish care from Last 3 Months or Most Recently Relevant to Health Maintenance Results * POCT glycosylated hemoglobin (Hb A1C) (03/05/2025 9:42 AM EDT) POCT Hemoglobin A1C 7.2 <5.7% Non-Diabet ic % [facility] Kit Lot Number [id number] [facility] Kit Expiration Date 12/26/26 [facility] Blood Venous blood specimen / Unknown 03/05/2025 9:42 AM EDT Cassandra Lee ANIMAL DAMAGE CONTROL AGENT POINT OF CARE TEST ENTER/E DIT ORDERABLES Final Result Performing Organization Address City/State/[facility] Co de Phone Number [facility] [address] [place] [address] from Last 3 Months Insurance AETNA [facility] MEDICAID [facility] MEDICAID DENTAL Care Teams Petroleum Engineering Teacher Relationship Specialty Start Date End Date Suzanne Chaudhari PA [address] [place] [address] PCP - General 08/14/24
--- NOTE | 2025-05-17 08:45 | CA_ITS ---
APPROVED REPORT EXAM: Comprehensive 2D, Doppler, and color-flow Echocardiogram Teradata Architect: Citlali Campbell RVT Ht: 5 ft 11 in Wt: 287lbs BSA: 2.46 BP: 127/62 mmHg Indications: DYSPENA 2D Dimensions IVSd 1.81 cm M: 0.6-1.2 LVEF (Visual) 57.20 % PWd 1.29 cm M: 0.6 - 1.2 LA Volume 26.70 mL LVDd 3.33 cm M: 4.2 - 5.9 LA Volume Index 10.85 mL/m2 (M/F) 16-34 LVDs 2.36 cm M: 2.5 - 4.0 M-Mode Dimensions LA Diam 3.83 cm (1.9-4.0) TAPSE 2.07 (<1.7) LV Diastology E Decel Time 227 (160-240 msec) E/A Ratio 0.9 Aortic Valve MATTHEW Index 1.58 cm2/m2 AoV Peak Evan. 157.0 (50-130 cm/s) AO Peak GR. 9.90 mmHg AO Mean GR. 5.90 (<5 mmHg) AO VTI 36.6 (18-25 cm) MATTHEW (VTI) 3.98 (2.5-4.5 cm2) Mitral Valve MV E Max Evan. 89.0 (40-130 cm/s) MV A Velocity 98.0 (40-130 cm/s) E/A Ratio 0.90 MV PHT 66.0 ms Pulmonary Valve PV Peak Velocity 101.0 (50-150 cm/s) Left Ventricle The left ventricle is normal size. Left ventricular systolic function is normal. The left ventricular ejection fraction is within the normal range. There is increased left ventricular wall thickness. There is normal LV segmental wall motion. Transmitral Doppler flow pattern suggests impaired LV relaxation. LVEF is 55% Right Ventricle The right ventricle is normal size. The right ventricular systolic function is normal. Atria The left atrium size is normal. The right atrium size is normal. There is no color Doppler evidence of interatrial shunt. Aortic Valve The aortic valve opens well. There is no hemodynamically significant aortic valvular stenosis. No aortic regurgitation is present. Mitral Valve The mitral valve is normal in structure. No evidence of mitral valve stenosis. Trace mitral regurgitation is present. Tricuspid Valve The tricuspid valve leaflets are thin and pliable. Trace tricuspid regurgitation. There is insufficient TR jet to estimate RVSP. Pulmonic Valve The pulmonary valve is grossly normal in structure. Trace pulmonic valve regurgitation is present. Great Vessels The aortic root is normal in size. IVC is normal in size and collapses >50% with inspiration. Pericardium There is no pericardial effusion. Other Information Study Quality: Technically Difficult Conclusion Normal biventricular systolic function. No significant valvular stenosis or regurgitation. Electronically signed by : Nichole Joseph MD 05/19/2025 18:37:01
== END 2025-05-17 23:59 | disposition home or self-care (01) ==
LOC: RT 08:29
PROVIDERS: PCP Family Medicine; Visit Provider Physician Assistant
DX: I25.10 Atherosclerotic heart disease of native coronary artery without angina pectoris (principal)
CPT/HCPCS: 93306

== ENCOUNTER 2025-06-17 10:29 | Outpatient (CLI) | payer OTHER, SELFPAY ==
--- OUTSIDE RECORDS SUMMARY | 2025-06-12 09:20 | XMS_ITS | Encounter Summary ---
Author Organization [facility] Address [address] [place] [address] Care Team Providers Care Supervisor Reinforced Steel Placing Name Role Phone Suzanne Chaudhari Primary Care Provider [phone] Reason for Referral * Consultation (Routine) - Authorized Specialty Diagnoses / Procedures Referred By Clinton ledbetter Referred To Contact Diagnoses Type 2 diabetes mellitus with other specified complication, with long-term current use of insulin Cassandra Lee APRN [address] [address] Phone: tel: fax: Referral ID Status Reason Start Date Expiration Date V isits Requested Visits Authorized [id number] Authorized 06/12/2025 12/12/2026 1 1 * Medications - Closed Specialty Diagnoses / Procedures Referred By Clinton ledbetter Referred To Contact Diagnoses Type 2 diabetes mellitus with other specified complication, with long-term current use of insulin Coronary artery disease, unspecified vessel or lesion type, unspecified whether angina present, unspecified whether ewiiaapaayp or transplanted heart Cassandra Lee APRN [address] [place] [address] Phone: tel: fax: Referral ID Status Reason Start Date Expiration Date Visits Re quested Visits Authorized [id number] Closed 1 1 Reason for Visit * Reason Comments Diabetes * Consultation (Routine) - Closed Specialty Diagnoses / Procedures Referred By Clinton ledbetter Referred To Contact Diagnoses Type 2 diabetes mellitus with other specified complication, with long-term current use of insulin Cassandra Lee APRN [address] [address] Phone: tel: fax: Referral ID Status Reason Start Date Expiration Date Visits Re quested Visits Authorized [id number] Closed 03/05/2025 09/04/2026 1 1 Encounter Details Date Type Department Care Team (Late st Contact Info) Description 06/12/2025 9:20 AM EDT [facility] [address] [place] [address] Cassandra Lee APRN [address] [address] Type 2 diabetes mellitus with other specified complication, with long-term current use of insulin (Primary Dx); Neuropathy; Hypertension, unspecified type; Coronary artery disease, unspecified vessel or lesion type, unspecified whether angina present, unspecified whether ewiiaapaayp or transplanted heart; Hyperlipidemia, unspecified hyperlipidemia type; Obesity (BMI 30-39.9) Social History Tobacco Use Types Packs/Day Years [...] on file documented as of this encounter Last Filed Vital Signs Vital Sign Reading Time Taken Comments Blood Pressure 117/74 06/12/2025 9:00 AM EDT Pulse 57 06/12/2025 9:00 AM EDT Temperature - - Respiratory Rate - - Oxygen Saturation - - Inhaled Oxygen Concentration - - Weight 132 kg (292 lb 1.8 oz) 06/12/2025 9:00 AM EDT Height 182.9 cm (6') 06/12/2025 9:00 AM EDT Body Mass Index 39.62 06/12/2025 9:00 AM EDT documented in this encounter Miscellaneous Notes * Patient Instructions - Cassandra Lee APRN - 06/12/2025 9:20 AM EDT Lab Results Component Value Date HGBA1C 7.0 06/12/2025 CHANGES: Stop glipizide and lantus Start 70/30 taking 18u twice a day, spacing 10-12 hours apart and adjust as directed START alpha lipoic acid 600mg daily; take for at least a month Continue metformin XR 1000mg twice a day with meals Continue jardiance 10mg every day Continue Ozempic 2mg weekly - call the diabetes education team with any questions or concerns [phone] * Progress Notes - Cassandra Lee APRN - 06/12/2025 9:20 AM EDT Bill Hernandez is a 64 y.o. male who presents with his for a follow up evaluation of Diabetes Mellitus Type 2. Patient was diagnosed around 2011. Current symptoms/problems include none. Diabetes - last OV 11/19/24, denies changes but will be getting a CT of a renal nodule. C- pap also broke A1c 7% today from 7.2% at last visit-> 7.6% ->7.2% -> 6.9%-> 7.5 -> 6.3% -> 6.5% Current treatment includes oral agents, insulin injections and GLP1: - metformin XR 1000mg twice a day with meals - glipizide XL 10mg twice a day before meals - jardiance 10mg every day, dose was decreased last visit due to intermittent boils and 'heat rash'but states the have happened all his life and have not worsened. Frequency has improved. Denies frequent UTI's or yeast infections, dizziness - lantus 33u in the AM - Ozempic 2mg weekly - Compliance at present is estimated to be excellent. Prior DM meds: Mounjaro- insurance Checking glucose 4 or more times a day CGM: Dexcom G7 Dates: 05/30/25-06/12/25 Data: Average glucose 174, 2% low, GMI 7.5% Interpretation: overall good glycemic control overnight but has daytime prandial hyperglycemia fromnoon-MN -see scanned document in media tab for details - no recurrent lows. Hypo awareness intact Known diabetic complications: peripheral neuropathy and cardiovascular disease, using a pain cream for his feet from podiatry. Suggested alpha lipoic acid 600mg daily at last visit, bought but has not tried -Denies prior DKA. Has ketone strips at home Cardiovascular risk factors: advanced age (older than 55 for men, 65 for women), diabetes mellitus,dyslipidemia, family history of premature cardiovascular disease, hypertension, male gender and obesity (BMI >= 30 kg/m2) Is he on SANAZ inhibitor or angiotensin II receptor lillian? Yes Is he on a StatinYes + vascepa Current diet: on average, 2 meals per day, tries to make healthy choices but has been eating out a bit more than previous and avoids sugary drinks Current exercise: no particular exercise regimen Date of Last Eye Exam: 05/2024, no retinopathy, no changes Date of Last Foot Exam: defers exam today. Denies open areas. sees podiatry q3m What current meter are you using?: one touch What pump type do you have?: n/a What type of sensor do you have?: dexcom When was your last flu shot?: 05/2023 When did you have labs last?: 09/18/24 CMP: Cr 1, GFR 76, lipid: TC 123, LDL 55, TRG 289, A1c 7% The following portions of the chart were reviewed this encounter and updated as appropriate: Review of Systems Constitutional: Negative. HENT: Negative. Eyes: Negative. Respiratory: Negative. Cardiovascular: Negative. Gastrointestinal: Negative. Endocrine: See hpi Genitourinary: Negative. Musculoskeletal: Negative. Skin: Negative. Neurological: Negative. +neuropathy Psychiatric/Behavioral: Negative. Objective Physical Exam Vitals reviewed. Constitutional: Appearance: Normal appearance. He is obese. HENT: Head: Normocephalic. Right Ear: External ear normal. Left Ear: External ear normal. Nose: Nose normal. Cardiovascular: Rate and Rhythm: Normal rate. Pulmonary: Effort: Pulmonary effort is normal. Musculoskeletal: General: Normal range of motion. Cervical back: Normal range of motion. Skin: General: Skin is warm and dry. Neurological: Mental Status: He is alert and oriented to person, place, and time. Psychiatric: Mood and Affect: Mood normal. Behavior: Behavior normal. Thought Content: Thought content normal. Judgment: Judgment normal. Lab Review Glucose, Plasma (mg/dL) Date Value 07/06/2023 145 (H) 07/07/2020 171 (H) POCT Hemoglobin A1C (%) Date Value 06/12/2025 7.0 03/05/2025 7.2 11/19/2024 7.2 09/16/2021 6.4 06/11/2021 7.0 (A) 03/05/2021 7.0 (A) CO2, Plasma (mmol/L) Date Value 07/06/2023 21 (L) 07/07/2020 24 BUN, Plasma (mg/dL) Date Value 07/06/2023 25 (H) 07/07/2020 18 Creatinine, Plasma (mg/dL) Date Value 07/06/2023 1.28 07/07/2020 1.22 Assessment/Plan Diabetes Mellitus Type 2, is uncontrolled, improved with A1c 7% from 7.2% at last OV - extensive review and discussion of CGM download completed with the patient Rx changes: stop ALTMAN and change basal to premix Stop glipizide and lantus Start 70/30 taking 18u twice a day, spacing 10-12 hours apart and adjust as directed. Titration reviewed and handout provided per SEAN Cormier, see additional note for details Continue metformin XR 1000mg twice a day with meals Continue jardiance 10mg every day, tolerating well Continue Ozempic 2mg weekly continue to check BG 4 or more times a day via CGM for insulin adjustment Labs utd 08/2024 Eye exam due Follow-up 3 mo # Neuropathy -stable, intermittently bothersome - encouraged to start alpha lipoic acid 600mg daily - no reported open areas - encouraged daily foot checks - follow up with podiatry as scheduled #HTN - controlled 117/74 -continue antihypertensives per cardiology #hyperlipidemia/CAD - stable per 09/18/24 lipid panel - continue statin and Vascepa per PCP/ cardiology - again cautiously continue SGLT2i - monitor # Obesity - weight stable -BMI: 39.62 from 39.31 -encouraged healthy diabetic diet and exercise as tolerated for optimal glycemic control The following Diabetes education was reviewed: [x]SBGM to evaluate dose needs []Insulin coverage with carbohydrate intake []Site rotation [x] Exercise impact on glucose levels [x]Driving safety related to diabetes []Sick day management [x]Ketone testing []Over treatment of hypoglycemia [x] Hypoglycemia management [x]Call-in line use []Insulin pump pros and cons [x]Sensor home use []Pump class offerings []Mary phenomena []Somogyi effect [] Alcohol related to diabetes []Benefits of written records []Pre-meal Bolusing [x]Daily foot care [x] Healthy diet and regular exercise []Long-term complications related to poor diabetes management [x] Injection timing related to changes in activity/exercise - time spent with patient does not include time spent interpreting CGM I personally spent a total of 31 minutes on this encounter. This time includes face to face with patient, counseling and discussion and/or coordination of care. SANDY Tabares [facility] ENDOCRINOLOGY [address], [address] [facility] [address] documented in this encounter Plan of Treatment Upcoming Encounters Date Type Department Care Team (Late st Contact Info) Description 09/30/2025 10:40 AM EST Office Visit [facility] End[facility] [address] [place] [address] Cassandra Lee, LOFTSMAN [address] [place] [address] Scheduled Referrals Name Type Priority Associated Diagnoses Orde r Schedule Follow Up [facility] Outpatient Referral Routine Type 2 diabetes mellitus with other specified complication, with long-term current use of insulin Expected: 09/12/2025 (Approximate), Expires: 12/14/2026 documented as of this encounter Procedures Procedure Name Priority Date/Time Associated Diagnosis Comments POCT GLYCOSYLATED HEMOGLOBIN (HGB A1C) Routine 06/12/2025 9:14 AM EDT Type 2 diabetes mellitus with other specified complication, with long-term current use of insulin documented in this encounter Results * POCT glycosylated hemoglobin (Hb A1C) (06/12/2025 9:14 AM EDT) POCT Hemoglobin A1C 7.0 <5.7% Non-Diabet ic % [facility] Kit Lot Number [id number] [facility] Kit Expiration Date 03/24 [facility] Blood Venous blood specimen / Unknown 06/12/2025 9:14 AM EDT Cassandra Lee LOFTSMAN POINT OF CARE TEST ENTER/E DIT ORDERABLES Final Result [facility] [address] [place] [address] documented in this encounter Visit Diagnoses Diagnosis Type 2 diabetes mellitus with other specified complication, with long-term current use of insulin- Primary Neuropathy Mononeuritis of unspecified site Hypertension, unspecified type Coronary artery disease, unspecified vessel or lesion type, unspecified whether angina present, unspecified whether ewiiaapaayp or transplanted heart Hyperlipidemia, unspecified hyperlipidemia type Obesity (BMI 30-39.9) documented in this encounter Additional Health Concerns Assessment Noted Time A fall risk assessment has been complete d for the patient 07/06/2023 10:32 AM EST A Body Mass Index follow-up plan has been documented for the patient 06/12/2025 10:47 AM EDT documented as of this encounter Care Teams Supervisor Reinforced Steel Placing Relationship Specialty Start Date End Date Suzanne Chaudhari PA [address] [place] [address] PCP - General 08/14/24 documented as of this encounter
--- OUTSIDE RECORDS SUMMARY | 2025-06-17 10:43 | XMS_ITS | Encounter Summary ---
Author Organization [facility] Address [address] [place] [address] Care Team Providers Care Supply Specialist Name Role Phone Suzanne Chaudhari Primary Care Provider [phone] Reason for Visit * Reason Comments Med Refill Encounter Details Date Type Department Care Team (Late st Contact Info) Description 05/01/2025 Refill [facility] [address] [place] [address] Cassandra Lee, REVENUE ENFORCEMENT AGENT [address] [facility] [address] [place] [address] Social History Tobacco Use Types [...] Description 09/30/2025 10:40 AM EST Office Visit [facility] Endocrinology [address] [place] [address] Cassandra Lee, REVENUE ENFORCEMENT AGENT [address] [facility] [address] [place] [address] documented as of this encounter Visit Diagnoses Not on filedocumented in this encounter Additional Health Concerns Assessment Noted Time A fall risk assessment has been complete d for the patient 07/06/2023 10:32 AM EST A Body Mass Index follow-up plan has been documented for the patient 03/05/2025 10:37 AM EDT documented as of this encounter Care Teams Supply Specialist Relationship Specialty Start Date End Date Suzanne Chaudhari PA [address] [place] [address] PCP - General 08/14/24 documented as of this encounter
--- OUTSIDE RECORDS SUMMARY | 2025-06-17 10:43 | XMS_ITS | Encounter Summary ---
Author Organization [facility] Address [address] [place] [address] Care Team Providers Care Esl Instructor Name Role Phone Suzanne Chaudhari Primary Care Provider [phone] Encounter Details Date Type Department Care Team (Latest Contact Info) Description 06/09/2025 Travel Social History Tobacco Use Types Packs/Day Years [...] Description 09/30/2025 10:40 AM EST [facility] [address] [place] [address] Cassandra Lee, TRAIN ATTENDANT [address] [place] [address] documented as of this encounter Visit Diagnoses Not on filedocumented in this encounter Additional Health Concerns Assessment Noted Time A fall risk assessment has been complete d for the patient 07/06/2023 10:32 AM EST A Body Mass Index follow-up plan has been documented for the patient 03/05/2025 10:37 AM EDT documented as of this encounter Care Teams Esl Instructor Relationship Specialty Start Date End Date Suzanne Chaudhari PA [address] [place] [address] PCP - General 08/14/24 documented as of this encounter
--- OUTSIDE RECORDS SUMMARY | 2025-06-17 10:43 | XMS_ITS | Encounter Summary ---
Author Organization [facility] Address [address] [place] [address] Care Team Providers Care Leak Patcher Name Role Phone Suzanne Chaudhari Primary Care Provider [phone] Encounter Details Date Type Department Care Team (Latest Contact Info) Description 06/12/2025 Travel Social History Tobacco Use Types Packs/Day [...] Description 09/30/2025 10:40 AM EST [facility] [address] [place] [address] Cassandra Lee, ENGINEERING SECRETARY [address] [place] [address] documented as of this encounter Visit Diagnoses Not on filedocumented in this encounter Additional Health Concerns Assessment Noted Time A fall risk assessment has been complete d for the patient 07/06/2023 10:32 AM EST A Body Mass Index follow-up plan has been documented for the patient 06/12/2025 10:47 AM EDT documented as of this encounter Care Teams Leak Patcher Relationship Specialty Start Date End Date Suzanne Chaudhari PA [address] [place] [address] PCP - General 08/14/24 documented as of this encounter
--- OUTSIDE RECORDS SUMMARY | 2025-06-17 10:44 | XMS_ITS | Clinical Summary ---
Author Organization [facility] Address [address] [place] [address] Care Team Providers Care Patcher Name Role Phone Suzanne Chaudhari Primary Care Provider [phone] Allergies Active Allergy Reactions Criticality Noted Date Comments Isosorbide Headache High 01/18/2023 Penicillins Unknown - Patient st ates they do not know rxn details Low 05/22/2020 Medications Aspirin Buf,CaCarb-MgCar b-MgO, 81 MG tablet TAKE 1 TABLET DAILY. [...] GERD Active ergocalciferol (Vitamin D-2) 1.25 MG (68461 UT) capsule TAKE 1 CAPSULE Weekly Active [...] mouth 1 (one) time each day. Active ProAir HFA 108 (90 Base) MCG/ACT inhaler INHALE 1 PUFF BY MOUTH 4 TIMES DAILY NEEDED FOR SHORTNESS OF BREATH OR WHEEZING Active Advair Diskus 500-50 MCG/DOSE diskus inhaler INHALE 1 DOSE BY MOUTH TWICE DAILY Active acetone, urine, test stripIndications :Type 2 diabetes mellitus with other specified complication, with long-term current use of insulin 1 strip if needed for high blood sugar (illness, vomiting). Call clinic if positive. 25 each 2 023 Active Spiriva HandiHaler 18 MCG inhalation capsule INHALE 1 PUFF BY MOUTH ONCE DAILY; PUNCTURE CAP USING DEVICE; ONE DOSE=2 INHALATIONS 023 Active dilTIAZem CD (Cardizem CD) 240 MG 24 hr capsule 023 Active Eliquis 5 MG tablet 024 Active metFORMIN XR (Glucophage-XR) 500 MG 24 hr tabletIndication s:Type 2 diabetes mellitus with other specified complication, with long-term current use of insulin Take 2 tablets (1,000 mg) by mouth 2 (two) times a day before meals. Do not crush, chew, or split. 360 tablet 3 024 2024 Active semaglutide (Ozempic, 2 MG/DOSE,) 8 MG/3ML solution pen-injectorIndi cations:Type 2 diabetes mellitus with other specified complication, with long-term current use of insulin Inject 2 mg under the skin 1 time per week. 9 mL 3 025 2025 Active Icosapent Ethyl (Vascepa) 1 g capsule TAKE 2 CAPSULES BY MOUTH TWICE DAILY WITH MEALS 120 capsule 3 Active Continuous Glucose Sensor (Dexcom G7 Sensor) misc CHANGE 1 SENSOR EVERY 10 DAYS 3 each 2 Active metoprolol succinate XL (Toprol-XL) 50 MG 24 hr tablet Take 1 tablet by mouth daily. Active ondansetron ODT (Zofran-ODT) 4 MG disintegrating tablet Active meloxicam (Mobic) 15 MG tablet Active levoFLOXacin (Levaquin) 750 MG tablet Take 1 tablet by mouth daily. Active ketoconazole (NIZOral) 2 % shampoo APPLY/MASSAGE INTO SCALP 2-3 TIMES WEEKLY NEEDED WHEN FLARED. LET SIT FOR 5 MINS, THEN WASH OFF Active empagliflozin (Jardiance) 10 MGIndications:Ty pe 2 diabetes mellitus with other specified complication, with long-term current use of insulin,Coronary artery disease, unspecified vessel or lesion type, unspecified whether angina present, unspecified whether [place] or transplanted heart Take 1 tablet by mouth daily. 90 tablet 3 025 2025 Active Insulin Pen Needle (Pen [place]) 31G X 5 MM miscIndications: Type 2 diabetes mellitus with other specified complication, with long-term current use of insulin Use 2 per day 200 each 3 Active Blood Glucose Monitoring Suppl (Blood Glucose Monitor System) w/Device kitIndications:T ype 2 diabetes mellitus with other specified complication, with long-term current use of insulin Use to check glucose readings 2 times a day 1 kit Active Lancets miscIndications: Type 2 diabetes mellitus with other specified complication, with long-term current use of insulin Use to check glucose 2 times a day 200 each 3 Active glucose blood test stripIndications :Type 2 diabetes mellitus with other specified complication, with long-term current use of insulin Use to check blood glucose 2 times a day 200 each 3 025 Active insulin aspart protamine-insuli n aspart (NovoLOG Mix 70-30) (70-30) 100 UNIT/ML injection penIndications:T ype 2 diabetes mellitus with other specified complication, with long-term current use of insulin Inject 18u twice a day. Space 10-12 hours apart and adjust as directed. MDD 60u 30 mL 3 025 Active Blood Glucose Monitoring Suppl (ONE TOUCH ULTRA 2) w/Device kit device kit See administration instructions. 021 2024 Discontinued Insulin Pen Needle (Pen [place] 11/11 ) 31G X 5 MM miscIndications: Type 2 diabetes mellitus with other specified complication, with long-term current use of insulin Use 2 per day 180 each 3 023 2024 Discontinued(R eorder) glipiZIDE XL (Glucotrol XL) 10 MG 24 hr tabletIndication s:Type 2 diabetes mellitus with other specified complication, with long-term current use of insulin Take 2 tablets (20 mg) by mouth 1 (one) time each day. Do not crush, chew, or split. 180 tablet 3 024 2024 Discontinued(T herapy completed) empagliflozin (Jardiance) 10 MGIndications:Ty pe 2 diabetes mellitus with other specified complication, with long-term current use of insulin,Coronary artery disease, unspecified vessel or lesion type, unspecified whether angina present, unspecified whether [place] or transplanted heart Take 1 tablet (10 mg) by mouth 1 (one) time each day. 90 tablet 3 024 2024 Discontinued(R eorder) insulin glargine (Lantus SoloStar, Basaglar) 100 UNIT/ML injection penIndications:T ype 2 diabetes mellitus with other specified complication, with long-term current use of insulin Inject 33 units daily and titrate up as directed. MDD 50units 30 mL 3 025 2024 Discontinued(T herapy completed) Insulin Pen Needle (Pen [place]) 31G X 5 MM miscIndications: Type 2 diabetes mellitus with other specified complication, with long-term current use of insulin Use 2 per day 200 each 025 2024 Discontinued(R eorder) Active Problems Problem Noted Date Diagnosed Date [...] 03/05/2021 Neuropathy 03/05/2021 Obesity (BMI 30-39.9) 03/05/2021 CAD (coronary artery disease) 05/23/2020 Hyperlipidemia 05/23/2020 Hypertension 05/23/2020 Type 2 diabetes mellitus, uncontrolled 0 Resolved Problems Problem Noted Date Diagnosed Date Resolved Date Paresthesia 07/07/2020 05/19/2025 Encounters Date Type Department Care Team Description 06/12/2025 9:20 AM EDT [facility] [address] [place] [id number] Cassandra Lee, SOLUTIONS MARKET CONSULTANT Type 2 diabetes mellitus with other specified complication, with long-term current use of insulin (Primary Dx); Neuropathy; Hypertension, unspecified type; Coronary artery disease, unspecified vessel or lesion type, unspecified whether angina present, unspecified whether [place] or transplanted heart; Hyperlipidemia, unspecified hyperlipidemia type; Obesity (BMI 30-39.9) 06/12/2025 Travel 06/09/2025 Travel 06/04/2025 Refill [facility] Endocrinology [address] [place] [address] Suzanne Archibald PA Type 2 diabetes mellitus with other specified complication, with long-term current use of insulin 05/01/2025 Refill [facility] Endocrinology [address] [place] [address] Cassandra Lee, SOLUTIONS MARKET CONSULTANT from Last 3 Months Immunizations Immunization Administration [...] Pulse 57 06/12/2025 9:00 AM EDT Temperature 36.3 C (97.4 F) 03/05/2021 8:07 AM EDT Respiratory Rate - - Oxygen Saturation - - Inhaled Oxygen Concentration - - Weight 132 kg (292 lb 1.8 oz) 06/12/2025 9:00 AM EDT Height 182.9 cm (6') 06/12/2025 9:00 AM EDT Body Mass Index 39.62 06/12/2025 9:00 AM EDT Plan of Treatment Upcoming Encounters Date Type Department Care Team (Late st Contact Info) Description 09/30/2025 10:40 AM EST Office Visit [facility] Endocrinology [address] [place] [address] Cassandra Lee, SOLUTIONS MARKET CONSULTANT [address] [place] [address] Health Maintenance Due Date Last Done Comments Dental Oral Exam 1961 Dental Prophylaxis 1961 Dental X-Ray: Bitewings 1961 [facility]-HIV Screening 1961 [facility]-Hepatitis C Screening 1961 [facility]-Infant/Child/Adol SDOH Screenings 1961 Diabetes: Dental Exam 1971 [facility]- SDOH Screenings 1979 [facility]-Adult SDOH Screenings 1979 CT Colonography 2006 Colonoscopy 2006 FIT-DNA 2006 FIT 2006 FOBT 2006 Sigmoidoscopy 2006 [facility]-Colorectal Cancer Screening 2006 [facility]-Lung Cancer Screening 2011 [facility]-Zoster Vaccines (1 of 2) 2011 [facility]-RSV Vaccine: 60+ Years or (1 - Risk 60-74 years 1-dose series) 2021 [id number] Vaccine (3 - 2024- season) 2025 03/20/2021, 02/20/2021 [facility]-Influenza Vaccine (#1) 04/29/202507/12, 06/22/2022, 06/17/2021, Additional history exists Dental X-Ray: Full Mouth 07/29/2025 07/28/2022 [facility]-Diabetes: Hemoglobin A1C 09/11/2025, 03/05/2025, 11/19/2024, Additional history exists [facility]-Depression Screening 11/19/2025 11/19/2024 [facility]-DTaP,Tdap,and Td Vaccines (2 - Td or Tdap) 01/27/2031 01/27/2021 [facility]-Pneumococcal Vaccine: 50+ Years Completed 09/28/2022, 07/28/2016 [facility]-Obesity Intervention Completed 025, 03/05/2025, 11/19/2024, Additional history exists HPV Vaccines Aged Out [...] complication, with long-term current use of insulin PANORAMIC RADIOGRAPHIC IMAGE Routine 07/28/2022 8:00 AM EST Encounter to establish care from Last 3 Months or Most Recently Relevant to Health Maintenance Results * POCT glycosylated hemoglobin (Hb A1C) (06/12/2025 9:14 AM EDT) POCT Hemoglobin A1C 7.0 <5.7% Non-Diabet ic % [facility] Kit Lot Number [id number] [facility] Kit Expiration Date 03/24 [facility] Blood Venous blood specimen / Unknown 06/12/2025 9:14 AM EDT Cassandra Lee APRN POINT OF CARE TEST ENTER/E DIT ORDERABLES Final Result [facility] [address] [place] [address] from Last 3 Months Insurance [facility]ETNA [facility] MEDICAID [place] Medicaid Dental Care Teams Patcher Relationship Specialty Start Date End Date Suzanne Chaudhari PA [address] [place] [address] PCP - General 08/14/24
--- OUTSIDE RECORDS SUMMARY | 2025-06-17 10:44 | XMS_ITS | Encounter Summary ---
Author Organization [facility] Address [address] [place] [address] Care Team Providers Care Contracting Specialist Name Role Phone Suzanne Chaudhari Primary Care Provider [phone] Reason for Visit * Reason Onset Date Comments Med Refill 06/04/2025 Encounter Details Date Type Department Care Team (Late st Contact Info) Description 06/04/2025 Refill [facility] Endocrinology [address] [place] [address] Suzanne Archibald PA [address] [place] [address] Type 2 diabetes mellitus with other specified complication, with long-term current use of insulin Social History Tobacco Use Types Packs/Day Years [...] encounter Miscellaneous Notes * Telephone Encounter - Lily White, PharmD - 06/04/2025 12:27 PM EDT 1 medication(s) has been approved per protocol. documented in this encounter Plan of Treatment Upcoming Encounters Date Type Department Care Team (Late st Contact Info) Description 09/30/2025 10:40 AM EST Office Visit [facility] Endocrinology [address] [place] [address] Cassandra Lee, REGULATORY ASSOCIATE [address] [place] [address] documented as of this encounter Visit Diagnoses Diagnosis Type 2 diabetes mellitus with other specified complication, with long-term current use of insulin documented in this encounter Additional Health Concerns Assessment Noted Time A fall risk assessment has been complete d for the patient 07/06/2023 10:32 AM EST A Body Mass Index follow-up plan has been documented for the patient 03/05/2025 10:37 AM EDT documented as of this encounter Care Teams Contracting Specialist Relationship Specialty Start Date End Date Suzanne Chaudhari PA [address] [place] [address] PCP - General 08/14/24 documented as of this encounter
[2025-06-17 11:37] LABS: Chloride 99 mmol/L (98-107); Sodium 135 mmol/L (136-145)
[2025-06-17 11:38] LABS: Potassium 4.5 mmoL/L (3.5-5.1)
[2025-06-17 11:40] LABS: Blood Urea Nitrogen 24 mg/dl (9-20); Creatinine,Serum 1.20 mg/dl (0.66-1.25); Estimated Glomerular Filt Rate 61 ml/min (>60); GFR (African American) 74 ML/MIN (>60)
[2025-06-17 11:41] LABS: Anion Gap 15.5 mEq/L (5-15); Calcium 9.5 mg/dl (8.4-10.2); Carbon Dioxide 25 mmol/L (22.0-30.0); Glucose 201 mg/dl (74-100)
== END 2025-06-17 23:59 | disposition home or self-care (01) ==
LOC: LAB 10:30
PROVIDERS: PCP Family Medicine; Visit Provider Family Medicine
DX: E11.621 Type 2 diabetes mellitus with foot ulcer (principal); L97.509 Non-pressure chronic ulcer of other part of unspecified foot with unspecified severity
CPT/HCPCS: 36415; 80048

== ENCOUNTER 2025-06-21 08:25 | Outpatient (CLI) | payer OTHER, SELFPAY ==
--- OUTSIDE RECORDS SUMMARY | 2025-06-12 09:20 | XMS_ITS | Encounter Summary ---
Author Organization [facility] Address [address] [place] [address] Care Team Providers Care Airborne And Air Delivery Specialist Name Role Phone Suzanne Chaudhari Primary Care Provider Reason for Referral * Consultation (Routine) - Authorized Specialty Diagnoses / Procedures Referred By Clinton ledbetter Referred To Contact Diagnoses Type 2 diabetes mellitus with other specified complication, with long-term current use of insulin Cassandra Lee APRN [address] [address] Phone: tel: fax: Referral ID Status Reason Start Date Expiration Date V isits Requested Visits Authorized [id number] Authorized 06/12/2025 12/12/2026 1 1 * Medications - Closed Specialty Diagnoses / Procedures Referred By Clinton ledbetter Referred To Contact Diagnoses Type 2 diabetes mellitus with other specified complication, with long-term current use of insulin Coronary artery disease, unspecified vessel or lesion type, unspecified whether angina present, unspecified whether [place] or transplanted heart Cassandra Lee APRN [address] [place] [address] Phone: tel: fax: Referral ID Status Reason Start Date Expiration Date Visits Re quested Visits Authorized [id number] Closed 1 1 Reason for Visit * Reason Comments Diabetes * Consultation (Routine) - Closed Specialty Diagnoses / Procedures Referred By Clinton ledbetter Referred To Contact Diagnoses Type 2 diabetes mellitus with other specified complication, with long-term current use of insulin Cassandra Lee APRN [address] [address] Phone: tel: fax: Referral ID Status Reason Start Date Expiration Date Visits Re quested Visits Authorized [id number] Closed 03/05/2025 09/04/2026 1 1 Encounter Details Date Type Department Care Team (Late st Contact Info) Description 06/12/2025 9:20 AM EDT [facility] [address] [place] [address] Cassandra Lee APRN [address] [address] Type 2 diabetes mellitus with other specified complication, with long-term current use of insulin (Primary Dx); Neuropathy; Hypertension, unspecified type; Coronary artery disease, unspecified vessel or lesion type, unspecified whether angina present, unspecified whether [place] or transplanted heart; Hyperlipidemia, unspecified hyperlipidemia type; [...] education team with any questions or concerns [phone] * Progress Notes - Cassandra Lee APRN [...] discussion and/or coordination of care. SANDY Tabares [facility]CR[facility] [address] [facility] [address], [address] [facility] [id number] documented in this encounter Plan of Treatment Upcoming Encounters Date Type Department Care Team (Late st Contact Info) Description 09/30/2025 10:40 AM EST Office Visit [facility] Endocrinology [address] [place] [address] Cassandra Lee, FINANCIAL EXAMINER [address] [place] [address] Scheduled Referrals Name Type Priority Associated Diagnoses Orde r Schedule Follow Up [facility] Outpatient Referral Routine Type 2 diabetes mellitus [...] [facility] Kit Lot Number [id number] [facility] Kit Expiration Date 03/24 [facility] Blood Venous blood specimen / Unknown 06/12/2025 9:14 AM EDT Cassandra Lee FINANCIAL EXAMINER POINT OF CARE TEST ENTER/E DIT ORDERABLES Final Result [facility] [address] [place] [address] documented in this encounter Visit Diagnoses Diagnosis Type 2 diabetes mellitus with other specified complication, with long-term current use of insulin- Primary Neuropathy Mononeuritis of unspecified site Hypertension, unspecified type Coronary artery disease, unspecified vessel or lesion type, unspecified whether angina present, unspecified whether [place] or transplanted heart Hyperlipidemia, unspecified hyperlipidemia type Obesity (BMI 30-39.9) documented in this encounter Additional Health Concerns Assessment Noted Time A fall risk assessment has been complete d for the patient 07/06/2023 10:32 AM EST A Body Mass Index follow-up plan has been documented for the patient 06/12/2025 10:47 AM EDT documented as of this encounter Care Teams Airborne And Air Delivery Specialist Relationship Specialty Start Date End Date Suzanne Chaudhari PA [address] [place] [address] PCP - General 08/14/24 documented as of this encounter
--- OUTSIDE RECORDS SUMMARY | 2025-06-21 08:28 | XMS_ITS | Encounter Summary ---
Author Organization [facility] Address [address] [place] [address] Care Team Providers Care Regional Merchandising Manager Name Role Phone Suzanne Chaudhari Primary Care Provider Reason for Visit * Reason Comments Med Refill Encounter Details Date Type Department Care Team (Late st Contact Info) Description 05/01/2025 Refill [facility] Endocrinology [address] [place] [address] Cassandra Lee, CALLIOPE PLAYER [address] [facility] [address] [place] [address] Social History Tobacco Use Types [...] Description 09/30/2025 10:40 AM EST Office Visit [facility] Endocrinology [address] [place] [phone] Cassandra Lee, CALLIOPE PLAYER [address] [facility] [address] [place] [address] documented as of this encounter Visit Diagnoses Not on filedocumented in this encounter Additional Health Concerns Assessment Noted Time A fall risk assessment has been complete d for the patient 07/06/2023 10:32 AM EST A Body Mass Index follow-up plan has been documented for the patient 03/05/2025 10:37 AM EDT documented as of this encounter Care Teams Regional Merchandising Manager Relationship Specialty Start Date End Date Suzanne Chaudhari PA [address] [place] [address] PCP - General 08/14/24 documented as of this encounter
--- OUTSIDE RECORDS SUMMARY | 2025-06-21 08:29 | XMS_ITS | Encounter Summary ---
Author Organization [facility] Address [address] [place] [address] Care Team Providers Care Fruit Checker Name Role Phone Suzanne Chaudhari Primary Care Provider [phone] Encounter Details Date Type Department Care Team [...] Description 09/30/2025 10:40 AM EST [facility] [address] [place] [address] Cassandra Lee, STAINED GLASS PAINTER [address] [place] [address] documented as of this encounter Visit Diagnoses Not on filedocumented in this encounter Additional Health Concerns Assessment Noted Time A fall risk assessment has been complete d for the patient 07/06/2023 10:32 AM EST A Body Mass Index follow-up plan has been documented for the patient 06/12/2025 10:47 AM EDT documented as of this encounter Care Teams Fruit Checker Relationship Specialty Start Date End Date Suzanne Chaudhari PA [address] [place] [address] PCP - General 08/14/24 documented as of this encounter
--- OUTSIDE RECORDS SUMMARY | 2025-06-21 08:29 | XMS_ITS | Encounter Summary ---
Author Organization [facility] Address [address] [place] [address] Care Team Providers Care Baker Paint Name Role Phone Suzanne Chaudhari Primary Care Provider [phone] Encounter Details Date Type Department Care Team [...] Description 09/30/2025 10:40 AM EST [facility] [address] [place] [address] Cassandra Lee, DONATION WORKER [address] [place] [address] documented as of this encounter Visit Diagnoses Not on filedocumented in this encounter Additional Health Concerns Assessment Noted Time A fall risk assessment has been complete d for the patient 07/06/2023 10:32 AM EST A Body Mass Index follow-up plan has been documented for the patient 03/05/2025 10:37 AM EDT documented as of this encounter Care Teams Baker Paint Relationship Specialty Start Date End Date Suzanne Chaudhari PA [address] [place] [address] PCP - General 08/14/24 documented as of this encounter
--- OUTSIDE RECORDS SUMMARY | 2025-06-21 08:30 | XMS_ITS | Encounter Summary ---
Author Organization [facility] Address [address] [place] [address] Care Team Providers Care Icu Specialist Name Role Phone Suzanne Chaudhari Primary Care Provider [phone] Reason for Visit * Reason Onset Date Comments Med Refill 06/04/2025 Encounter Details Date Type Department Care Team (Late st Contact Info) Description 06/04/2025 Refill [facility] Endocrinology [address] [place] [address] Suzanne Archibald PA [address] [facility] [address] [place] [address] Type 2 diabetes mellitus with [...] Description 09/30/2025 10:40 AM EST Office Visit [facility] Endocrinology [address] [place] [address] Cassandra Lee, ASSOCIATE VETERINARIAN [address] [place] [address] documented as of this encounter [...] documented as of this encounter Care Teams Icu Specialist Relationship Specialty Start Date End Date Suzanne Chaudhari PA [address] [place] [address] PCP - General 08/14/24 documented as of this encounter
--- OUTSIDE RECORDS SUMMARY | 2025-06-21 08:30 | XMS_ITS | Encounter Summary ---
Author Organization [facility] Address [address] [place] [address] Care Team Providers Care Sales Order Processor Name Role Phone Suzanne Chaudhari Primary Care Provider [phone] Reason for Visit * Reason Comments Med Refill Encounter Details Date Type Department Care Team (Late st Contact Info) Description 06/19/2025 Refill [facility] Endocrin[facility] [address] [place] [address] Cassandra Lee, POOL COORDINATOR [address] [facility] [address] [place] [address] Social History Tobacco Use Types [...] encounter Miscellaneous Notes * Telephone Encounter - Beverly Mays PharmD - 06/20/2025 8:24 AM EDT 1 medication(s) has been approved per protocol. documented in this encounter Plan of Treatment Upcoming Encounters Date Type Department Care Team (Late st Contact Info) Description 09/30/2025 10:40 AM EST Office Visit [facility] Endocrinology [address] [place] [address] Cassandra Lee, POOL COORDINATOR [address] [facility] [address] [place] [address] documented as of this encounter Visit Diagnoses Not on filedocumented in this encounter Additional Health Concerns Assessment Noted Time A fall risk assessment has been complete d for the patient 07/06/2023 10:32 AM EST A Body Mass Index follow-up plan has been documented for the patient 06/12/2025 10:47 AM EDT documented as of this encounter Care Teams Sales Order Processor Relationship Specialty Start Date End Date Suzanne Chaudhari PA [address] [place] [address] PCP - General 08/14/24 documented as of this encounter
--- OUTSIDE RECORDS SUMMARY | 2025-06-21 08:30 | XMS_ITS | Clinical Summary ---
Author Organization [facility] Address [address] [place] [address] Care Team Providers Care Industrial Organizational Psychologist Name Role Phone Suzanne Chaudhari Primary Care Provider [phone] Allergies Active Allergy Reactions Criticality Noted Date [...] GERD Active ergocalciferol (Vitamin D-2) 1.25 MG (71152 UT) capsule TAKE 1 CAPSULE Weekly Active [...] week. 9 mL 3 025 2025 Active Continuous Glucose Sensor (Dexcom [...] type, unspecified whether angina present, unspecified whether [place] or transplanted heart Take 1 tablet by mouth daily. 90 tablet 3 025 2025 Active Insulin Pen Needle (Pen [place]) 31G X 5 MM miscIndications: Type 2 [...] times a day 200 each 3 Active insulin aspart protamine-insuli n aspart (NovoLOG Mix 70-30) (70-30) 100 UNIT/ML injection penIndications:T ype 2 diabetes mellitus with other specified complication, with long-term current use of insulin Inject 18u twice a day. Space 10-12 hours apart and adjust as directed. MDD 60u 30 mL 3 025 Active Icosapent Ethyl (Vascepa) 1 g capsule TAKE 2 CAPSULES BY MOUTH TWICE DAILY WITH MEALS 360 capsule Active Blood Glucose Monitoring Suppl (ONE TOUCH ULTRA 2) w/Device kit device kit See administration instructions. 021 2024 Discontinued Insulin Pen Needle (Pen [place] 11/11 ) 31G X 5 MM miscIndications: [...] type, unspecified whether angina present, unspecified whether [place] or transplanted heart Take 1 tablet (10 [...] mL 3 025 2024 Discontinued(T herapy completed) Icosapent Ethyl (Vascepa) 1 g capsule TAKE 2 CAPSULES BY MOUTH TWICE DAILY WITH MEALS 120 capsule 3 025 2024 Discontinued Insulin Pen Needle (Pen [place]) 31G X 5 MM miscIndications: Type 2 diabetes mellitus with other specified complication, with long-term current use of insulin Use 2 per day 200 each 025 2024 Discontinued(R yanira) Active Problems Problem Noted Date Diagnosed Date [...] Encounters Date Type Department Care Team Description 06/19/2025 Refill [facility] Endocrinology [address] [place] [address] Cassandra Lee APRN 06/12/2025 9:20 AM EDT Office Visit [facility] [address] [place] [address] Cassandra Lee, SANDY Type 2 diabetes mellitus with other specified complication, with long-term current use of insulin (Primary Dx); Neuropathy; Hypertension, unspecified type; Coronary artery disease, unspecified vessel or lesion type, unspecified whether angina present, unspecified whether [place] or transplanted heart; Hyperlipidemia, unspecified hyperlipidemia type; Obesity (BMI 30-39.9) 06/12/2025 Travel 06/09/2025 Travel 06/04/2025 Refill [facility] Endocrinology [address] [place] [address] Suzanne Archibald, LELAND Type 2 diabetes mellitus with other specified complication, with long-term current use of insulin 05/01/2025 Refill [facility] Endocrinology [facility] [place] [address] Cassandra Lee, SANDY from Last 3 Months Immunizations Immunization Administration [...] Hernandez Relation Name Status Comments Father Mabel Hernadnez Mother Mary Hernandez Social History Tobacco Use [...] 09/30/2025 10:40 AM EST [facility] [address] [place] [address] Cassandra Lee, INTERFACE ENGINEER [address] [place] [address] Health Maintenance Due Date Last Done Comments Dental Oral Exam 1961 Dental Prophylaxis 1961 Dental X-Ray: Bitewings 1961 [facility]-HIV Screening 1961 [facility]-Hepatitis C Screening 1961 [facility]-/Child/Adol SDOH Screenings 1961 Diabetes: Dental Exam 1971 [facility]- SDOH Screenings 1979 [facility]-Adult SDOH Screenings 1979 CT Colonography 2006 Colonoscopy 2006 FIT-DNA 2006 FIT 2006 FOBT 2006 Sigmoidoscopy 2006 [facility]-Colorectal Cancer Screening 2006 Lung Cancer Screening Shared Decision Making 2011 [facility]-Lung Cancer Screening 2011 [facility]-Zoster Vaccines (1 of 2) 2011 [facility]-RSV Vaccine: 60+ Years or (1 - Risk 60-74 years 1-dose series) 2021 [id number] Vaccine (3 - 2024- season) 2025 03/20/2021, [...] [facility] Kit Lot Number [id number] [facility] Kit Expiration Date 03/24 [facility] Blood Venous blood specimen / Unknown 06/12/2025 9:14 AM EDT us Cassandra Lee INTERFACE ENGINEER POINT OF CARE TEST ENTER/E DIT ORDERABLES Final Result [facility] [address] [place] [address] from Last 3 Months Insurance [facility]NA [facility] MEDICAID [facility] Medicaid Dental Care Teams Industrial Organizational Psychologist Relationship Specialty Start Date End Date Suzanne Chaudhari PA [address] [place] [address] PCP - General 08/14/24
--- NOTE | 2025-06-21 08:45 | CT_ITS ---
FINAL REPORT TECHNIQUE: Oral and IV contrast enhanced exam This study was performed with techniques to keep radiation doses as low as reasonably achievable, (ALARA). Individualized dose reduction techniques using automated exposure control or adjustment of mA and/or kV according to the patient's size were employed. CLINICAL HISTORY: Indeterminate right adrenal nodule. pt stated that he had a spot on his kidney 75 ml prohance COMPARISON: CT of the abdomen and pelvis 02/13/2025, LDCT 05/06/2025, CT abdomen pelvis 01/27/2021 FINDINGS: Abdomen: Lung bases are clear. The gallbladder is unremarkable. Liver demonstrates fatty infiltration. The spleen, pancreas and kidneys are unremarkable. A right adrenal mass is present measuring 16 mm in size, was previously 15 mm. Although density measurements to confirm adenoma cannot be made without the benefit of a noncontrast exam, size and stability of the adrenal lesion would strongly indicate benign etiology, likely adenoma. A few small nonspecific retroperitoneal nodes are present. No bowel obstruction or fluid collection is seen. Pelvis: The appendix is normal. Pelvic bowel loops are unremarkable. No fluid collection or adenopathy is seen. Bladder and prostate are normal. IMPRESSION: 1. No significant growth in right adrenal gland for the last 4 years. Size and stability of the adrenal lesion would strongly indicate benign etiology, likely adenoma. Reviewed, Interpreted and Dictated by Namita Alfred MD Transcribed by Rita Andrade Authenticated and [facility]
[2025-06-21] MEDS: IOPAMIDOL-370 (76%);100ML BOTTLE 75 ML IV (08:57)
[2025-06-21] MEDS: SODIUM CHLORIDE 0.9% 10ML SYR (RAD ONLY) 10 ML IV (08:57)
== END 2025-06-21 23:59 | disposition home or self-care (01) ==
LOC: RAD 08:25
PROVIDERS: PCP Family Medicine; Visit Provider Family Medicine
DX: E27.9 Disorder of adrenal gland, unspecified (principal)
CPT/HCPCS: 74177; Q9967

== ENCOUNTER 2025-08-28 15:43 | Emergency (ER) | payer OTHER, SELFPAY ==
[2025-08-28 16:31] VITALS: BP 122/66; PULSE 71; RESP 18; TEMP 36.9; O2SAT 97; BMI 41.0
--- OUTSIDE RECORDS SUMMARY | 2025-08-28 16:40 | XMS_ITS | Encounter Summary ---
Author Organization [facility] Address [address] [place] [address] Care Team Providers Care Data Analysis Intern Name Role Phone Suzanne Chaudhari Primary Care Provider [phone] Reason for Visit * Reason Comments Med Refill Encounter Details Date Type Department Care Team (Late st Contact Info) Description 08/25/2025 [facility]ill [facility] [address] [place] [address] Cassandra Lee, MANAGER CLINICAL RESEARCH [address] [facility] [address] [place] [address] Type 2 diabetes mellitus with [...] encounter Miscellaneous Notes * Telephone Encounter - Flor Kerns, ALEJANDRA - 08/26/2025 6:04 PM EST Refill request does not meet protocol. Sending to clinic for review. Additional info: Clarification required: Last CMP 07/06/2023. documented in this encounter Plan of Treatment Upcoming Encounters Date Type Department Care Team (Late st Contact Info) Description 09/30/2025 10:40 AM EST Office Visit [facility] Endocrinology [address] [place] [address] Cassandra Lee, MANAGER CLINICAL RESEARCH [address] [place] [address] documented as of this encounter [...] documented as of this encounter Care Teams Data Analysis Intern Relationship Specialty Start Date End Date Suzanne Chaudhari PA [address] [place] [address] PCP - General 08/14/24 documented as of this encounter
--- OUTSIDE RECORDS SUMMARY | 2025-08-28 16:40 | XMS_ITS | Encounter Summary ---
Author Organization [facility] Address [address] [place] [address] Care Team Providers Care Ditch Worker Name Role Phone Suzanne Chaudhari Primary Care Provider [phone] Encounter Details Date Type Department Care Team (Late st Contact Info) Description 07/29/2025 Telephone [facility] Endocrinology [address] [place] [address] Cassandra Lee, ROAD OILER [address] [facility] [address] [place] [address] Social History Tobacco Use Types [...] encounter Miscellaneous Notes * Telephone Encounter - Jasmin Truong RN - 07/29/2025 11:31 AM EST Returned pt's call regarding blood sugars. Looked at pt's Dexcom (in media) and see that pt is still waking up high, and also going to bed high. Patient reports that he is taking Premix 33 units BID.He expresses his frustration of insulin not working and he reports that he is ready to go back to his previous regimen. I informed him that we have to find the right dose for him. He reports that he i s already taking 33 units and feels that it is too much. I advised him that we can go up on his insulin by 2 units every 3 days until his blood sugar is <150 before breakfast and before dinner for3 days in a row. He reports that he will go up one more time. I informed him that going up 1 more time may not be enough. I advised that we can get him in to see our pharmacist at [facility], and he reports that he would rather see his provider. I advised that we can try and get him seen sooner by provider, however, her schedule may be booked. I asked him what he wants to do, and that I will help him anyway I can. He reports that he will give it a try. I advised to try this for 2 weeks and if he feelslike it's not working then to call us back and we will go from there. Patient was driving, therefore, I advised that I will upload the instructions to his [employer] and if he has a hard time, to give us a call back. I also educated the pt regarding titration instructions. I also advised him to increase his dose tonight's dose and tomorrow morning's dose from 33 units to 36 units, also advised to dothat for the next 3-4 days, then go up by 2 units every 3-4 days. Advised to call us back if needed. He verbalized understanding and no other concerns voiced. * Telephone Encounter - Jasmin Truong RN - 07/29/2025 9:34 AM EST Patient is calling regarding his fluctuating blood sugars. He currently takes Premix insulin 33 units BID and blood sugars are still up and down with some in 300's. Patient is requesting a callback. documented in this encounter Plan of Treatment Upcoming Encounters Date Type Department Care Team (Late st Contact Info) Description 09/30/2025 10:40 AM EST Office Visit [facility] Endocrinology [address] [place] [address] Cassandra Lee, ROAD OILER [address] [place] [address] documented as of this encounter Visit Diagnoses Not on filedocumented in this encounter Additional Health Concerns Assessment Noted Time A fall risk assessment has been complete d for the patient 07/06/2023 10:32 AM EST A Body Mass Index follow-up plan has been documented for the patient 06/12/2025 10:47 AM EDT documented as of this encounter Care Teams Ditch Worker Relationship Specialty Start Date End Date Suzanne Chaudhari PA [address] [place] [address] PCP - General 08/14/24 documented as of this encounter
--- OUTSIDE RECORDS SUMMARY | 2025-08-28 16:40 | XMS_ITS | Encounter Summary ---
Author Organization [facility] Address [address] [place] [address] Care Team Providers Care Byproducts Pump Operator Name Role Phone Suzanne Chaudhari Primary Care Provider Encounter Details Date Type Department Care Team (Late st Contact Info) Description 07/11/2025 Telephone [facility] Endocrinology [address] [place] [address] Cassandra Lee, HEAD OF HOUSEKEEPING [address] [facility] [address] [place] [address] Social History Tobacco Use Types [...] Telephone Encounter - Jasmin Truong RN - 07/17/2025 1:46 PM EST Returned pt's call regarding medication change and blood sugars. Patient was advised in previous phone encounter by CDE to eat regularly and to call us back to look at his blood sugars. Patient was recently changed to taking Premix insulin. Looked at Dexcom Report (in media) and advised pt to increase doses from 30 units BID to 33 units BID. Advised to do that for 3-4 days and to call us back if he is still having high blood sugars. He verbalized understanding and no other concerns voiced. * Telephone Encounter - Anna Stockton - 07/16/2025 1:06 PM EST Pt calling to update how he has been doing. Please call back. * Telephone Encounter - Pari Castillo - 07/11/2025 3:52 PM EST Returned pts call who is concerned his GMI on his dexcom is up to 7.7 from 7 since changing diabetes regimen. Pt states he started at 18 units BID and has titrated up to 30 units. His past couple of days bs look good but pt states he has been trying not to eat very much. Instructed pt to continue 30 units BID and eat normally so we can assess current dose of premix insulin on managing bs. Asked pt to call back on Tuesday for further instruction. Pt verbalized understanding. * Telephone Encounter - Anna Stockton - 07/11/2025 2:53 PM EST Pt is asking how much of the Novolog flex pen he can take, he is currently at 30 units twice a day. documented in this encounter Plan of Treatment Upcoming Encounters Date Type Department Care Team (Late st Contact Info) Description 09/30/2025 10:40 AM EST Office Visit [facility] [address] [place] [address] Cassandra Lee, HEAD OF HOUSEKEEPING [address] [place] [address] documented as of this encounter Visit Diagnoses Not on filedocumented in this encounter Additional Health Concerns Assessment Noted Time A fall risk assessment has been complete d for the patient 07/06/2023 10:32 AM EST A Body Mass Index follow-up plan has been documented for the patient 06/12/2025 10:47 AM EDT documented as of this encounter Care Teams Byproducts Pump Operator Relationship Specialty Start Date End Date Suzanne Chaudhari PA [address] [place] [address] PCP - General 08/14/24 documented as of this encounter
--- OUTSIDE RECORDS SUMMARY | 2025-08-28 16:40 | XMS_ITS | Encounter Summary ---
Author Organization [facility] Address [address] [place] [address] Care Team Providers Care Ranch Hand Name Role Phone Suzanne Chaudhari Primary Care Provider [phone] Reason for Visit * Reason Comments Med Refill Encounter Details Date Type Department Care Team (Late st Contact Info) Description 08/08/2025 Refill [facility] [address] [place] [address] Cassandra Lee, MORTGAGE LOAN COORDINATOR [address] [facility] [address] [place] [address] Social History Tobacco Use Types [...] encounter Miscellaneous Notes * Telephone Encounter - Lauryn Mills PharmD - 08/08/2025 11:38 AM EST 1 medication(s) has been approved per protocol. documented in this encounter Plan of Treatment Upcoming Encounters Date Type Department Care Team (Late st Contact Info) Description 09/30/2025 10:40 AM EST Office Visit [facility] Endocrinology [address] [place] [address] Cassandra Lee, MORTGAGE LOAN COORDINATOR [address] [place] [address] documented as of this encounter Visit Diagnoses Not on filedocumented in this encounter Additional Health Concerns Assessment Noted Time A fall risk assessment has been complete d for the patient 07/06/2023 10:32 AM EST A Body Mass Index follow-up plan has been documented for the patient 06/12/2025 10:47 AM EDT documented as of this encounter Care Teams Ranch Hand Relationship Specialty Start Date End Date Suzanne Chaudhari PA [address] [place] [address] PCP - General 08/14/24 documented as of this encounter
--- OUTSIDE RECORDS SUMMARY | 2025-08-28 16:41 | XMS_ITS | Clinical Summary ---
Author Organization [facility] Address [address] [place] [address] Care Team Providers Care Senior Fund Accountant Name Role Phone Suzanne Chaudhari Primary Care Provider [phone] Allergies Active Allergy Reactions Criticality Noted Date Comments Isosorbide Headache High 01/18/2023 Penicillins Unknown - Patient st ates they do not know rxn details Low 05/22/2020 Medications Aspirin Buf,CaCarb-MgCarb -MgO, 81 MG tablet TAKE 1 TABLET DAILY. [...] GERD Active ergocalciferol (Vitamin D-2) 1.25 MG (18178 UT) capsule TAKE 1 CAPSULE Weekly Active [...] MOUTH TWICE DAILY Active acetone, urine, test stripIndications: Type 2 diabetes mellitus with other specified [...] Active Eliquis 5 MG tablet 024 Active semaglutide (Ozempic, 2 MG/DOSE,) 8 MG/3ML solution pen-injectorIndic ations:Type 2 diabetes mellitus with other specified complication, with long-term current use of insulin Inject 2 mg under the skin 1 time per week. 9 mL 3 025 2025 Active metoprolol succinate XL (Toprol-XL) 50 MG [...] THEN WASH OFF Active empagliflozin (Jardiance) 10 MGIndications:Typ e 2 diabetes mellitus with other specified complication, with long-term current use of insulin,Coronary artery disease, unspecified vessel or lesion type, unspecified whether angina present, unspecified whether wiyot or transplanted heart Take 1 tablet by mouth daily. 90 tablet 3 2025 Active Insulin Pen Needle (Pen [place]) 31G X 5 MM miscIndications:T ype 2 diabetes mellitus with other specified complication, with long-term current use of insulin Use 2 per day 200 each 3 Active Blood Glucose Monitoring Suppl (Blood Glucose Monitor System) w/Device kitIndications:Ty pe 2 diabetes mellitus with other specified complication, with long-term current use of insulin Use to check glucose readings 2 times a day 1 kit Active Lancets miscIndications:T ype 2 diabetes mellitus with other specified complication, with long-term current use of insulin Use to check glucose 2 times a day 200 each 3 Active glucose blood test stripIndications: Type 2 diabetes mellitus with other specified complication, with long-term current use of insulin Use to check blood glucose 2 times a day 200 each 3 Active insulin aspart protamine-insulin aspart (NovoLOG Mix 70-30) (70-30) 100 UNIT/ML injection penIndications:Ty pe 2 diabetes mellitus with other specified complication, with long-term current use of insulin Inject 18u twice a day. Space 10-12 hours apart and adjust as directed. MDD 60u 30 mL 3 Active Icosapent Ethyl (Vascepa) 1 g capsule TAKE 2 CAPSULES BY MOUTH TWICE DAILY WITH MEALS 360 capsule 10/23/2 025 Active Continuous Glucose Sensor (Dexcom G7 Sensor) misc PLACE 1 UNIT TO SKIN AND CHANGE EVERY 10 DAYS 3 each 2 025 Active metFORMIN XR (Glucophage-XR) 500 MG 24 hr tabletIndications :Type 2 diabetes mellitus with other specified complication, with long-term current use of insulin TAKE 2 TABLETS BY MOUTH TWICE DAILY BEFORE MEALS. DO NOT CRUSH, CHEW, OR SPLIT 360 tablet 025 Active metFORMIN XR (Glucophage-XR) 500 MG 24 hr tabletIndications :Type 2 diabetes mellitus with other specified complication, with long-term current use of insulin Take 2 tablets (1,000 mg) by mouth 2 (two) times a day before meals. Do not crush, chew, or split. 360 tablet 3 024 2024 Discontinued Continuous Glucose Sensor (Dexcom G7 Sensor) misc CHANGE 1 SENSOR EVERY 10 DAYS 3 each 2 025 2024 Discontinued Active Problems Problem [...] Encounters Date Type Department Care Team Description 08/25/2025 Refill [facility] Endocrinology [address] [place] [address] Cassandra Lee, INDIGO VAT TENDER CLOTH Type 2 diabetes mellitus with other specified complication, with long-term current use of insulin 08/08/2025 Refill [facility] Endocrinology [address] [place] [address] Cassandra Lee APRN 07/29/2025 Telephone [facility] Endocrinology [address] [place] [address] Cassnadra Lee, INDIGO VAT TENDER CLOTH 07/11/2025 Telephone [facility] Endocrinology [address] [place] [address] Cassandra Lee, INDIGO VAT TENDER CLOTH 06/19/2025 Refill [facility] Endocrinology [address] [place] [address] Cassandra Lee, INDIGO VAT TENDER CLOTH 06/12/2025 9:20 AM EDT Office Visit [facility] Endocrinology [address] [place] [address] Cassandra Lee, INDIGO VAT TENDER CLOTH Type 2 diabetes mellitus with other specified complication, with long-term current use of insulin (Primary Dx); Neuropathy; Hypertension, unspecified type; Coronary artery disease, unspecified vessel or lesion type, unspecified whether angina present, unspecified whether wiyot or transplanted heart; Hyperlipidemia, unspecified hyperlipidemia type; Obesity (BMI 30-39.9) 06/12/2025 Travel 06/09/2025 Travel 06/04/2025 Refill [facility] Endocrinology [address] [place] [address] Suzanne Archibald PA Type 2 diabetes mellitus with other specified complication, with long-term current use of insulin from Last 3 Months Immunizations Immunization Administration Dates Next Due Influenza, injectable, quadrivalent 07/05/2017 Influenza, injectable, quadr ivalent, preservative free 06/22/2022,06/17/2021,06/09/2020,09/24,10/19/2018 Influenza, seasonal, injectable 07/28/2016 Moderna COVID-19 Vaccine (Re d Cap) 12+ years 03/20/2021,02/20/2021 Pneumococcal 20-doorn Conj Vaccine 09/28/2022 Pneumococcal Polysaccharide PPV23 07/28/2016 Tdap 01/27/2021 Family History Medical History Relation Name Comments Cardiac disorder Father Mabel Hernandez Diabetes Father Mabel Hernandez Hypertension Father Mabel Hernandez Lung disease Father Mabel Hernandez Obesity Father Mabel Hernandez Cirrhosis Mother [place] Obesity Mother Mary Hernandez Relation Name Status [...] 09/30/2025 10:40 AM EST Office Visit [facility] Endocrinology [address] [place] [address] Cassandra Lee, INDIGO VAT TENDER CLOTH [address] [place] [address] Health Maintenance Due Date Last [...] Decision Making 2011 [facility]-Lung Cancer Screening 2011 [facility]-RSV Vaccine: 60+ Years or (1 - Risk 50-74 years 1-dose series) 2011 [facility]-Zoster Vaccines (1 of 2) 2011 [facility]-EVAPG-19 Vaccine (3 - 2024- season) 2025 03/20/2021, [...] 03/05/2025, 11/19/2024, Additional history exists HPV Vaccines (No Doses Required) Completed [facility]-HIB Vaccines Aged Out No longer e [...] [facility] Kit Lot Number [id number] [facility] Kit Expiration Date 03/24 [facility] Blood Venous blood specimen / Unknown 06/12/2025 9:14 AM EDT Cassandra Lee INDIGO VAT TENDER CLOTH POINT OF CARE TEST ENTER/E DIT ORDERABLES Final Result Performing Organization Address City/State/[facility] Co de Phone Number [facility] [address] [place] [address] from Last 3 Months Insurance [employer] [facility] MEDICAID [facility] Medicaid Dental Care Teams Senior Fund Accountant Relationship Specialty Start Date End Date Suzanne Chaudhari PA [address] [place] [address] PCP - General 08/14/24
--- NOTE | 2025-08-28 16:46 | ED_ITS ---
Discharge Plan Disposition Patient Disposition: Home, Self-Care Prescriptions Prescriptions: New lidocaine [Aspercreme (lidocaine)] 4 % adhesive patch,medicated 1 patch topical DAILY PRN (Reason: pain) Qty: 10 0RF methocarbamol 500 mg tablet 1,000 mg PO Q8H PRN (Reason: muscle pain and spasm) Qty: 30 0RF No Action multivitamin tablet 1 tab PO QAM ipratropium-albuterol 0.5 mg-3 mg(2.5 mg base)/3 mL solution for nebulization 3 ml IH QID PRN (Reason: shortness of breath or wheezing) Qty: 180 5RF ketoconazole 2 % cream topical Patient Comments: APPLY THIN LAYER TOPICALLY TO AFFECTED AREA TWICE DAILY NEEDED TO FACE FOR FLAKING icosapent ethyl 1 gram capsule 2 g PO BID azelastine 137 mcg (0.1 %) spray,non-aerosol 2 spray NS BID 90 Days Qty: 30 3RF Rx Instructions: administer into each nostril montelukast [Singulair] 10 mg tablet 10 mg PO DAILY Qty: 90 3RF albuterol sulfate 90 mcg/actuation HFA aerosol inhaler 1 inh IH QID PRN (Reason: shortness of breath or wheezing) 90 Days Qty: 8.5 3RF fluticasone propion-salmeterol [Advair Diskus] 500-50 mcg/dose blister with device 1 inh INHALATION BID Qty: 180 3RF fluticasone propionate [Flonase Allergy Relief] 50 mcg/actuation spray,suspension 1 spray INTRANASAL BID 90 Days Qty: 48 3RF Rx Instructions: administer into each nostril ammonium lactate 12 % cream 1 applic topical BID 30 Days Qty: 385 2RF ketoconazole 2 % shampoo topical Patient Comments: MASSAGE INTO SCALP 2-3 TIMES WEEKLY NEEDED WHEN FLARED. LET SIT FOR 5 MINUTES, THEN WASH OFF. (DME) Diabetic Shoes (DME) Misc See Rx Instructions .ROUTE .MEDSUPPLY Qty: 1 0RF Rx Instructions: [facility] Please dispense one (1) pair of Diabetic shoes with inserts (DME) pen needle, diabetic [Ultra-Fine Pen Needle] 31 gauge x 3/16 needle See Rx Instructions .ROUTE .MEDSUPPLY Qty: 1200 Rx Instructions: As directed insulin glargine 100 unit/mL (3 mL) insulin pen 33 unit SQ QAM Patient Comments: INJECT 28 UNITS SUBCUTANEOUSLY AT BEDTIME WITH POTENTIAL TITRATION TO MAX DAILY DOSE OF 50 UNITS Jardiance 10 mg tablet 10 mg PO DAILY (DME) Dexcom G7 Sensor Device See Rx Instructions .ROUTE .MEDSUPPLY Qty: 1 Patient Comments: PLACE 1 UNIT TO SKIN AND CHANGE EVERY 10 DAYS Rx Instructions: As directed Ozempic 2 mg/dose (8 mg/3 mL) pen injector SQ Patient Comments: INJECT 2 MG SUBCUTANEOUSLY ONCE A WEEK levofloxacin 750 mg tablet 750 mg PO DAILY Qty: 7 0RF spironolactone 25 mg tablet See Rx Instructions .ROUTE .COMPLEX Qty: 180 3RF Dose Instruction: Take 1 tablet by mouth twice daily Rx Instructions: Take 1 tablet by mouth twice daily metoprolol succinate 50 mg tablet extended release 24 hr See Rx Instructions .ROUTE .COMPLEX Qty: 90 3RF Dose Instruction: Take 1 tablet by mouth once daily Rx Instructions: Take 1 tablet by mouth once daily diltiazem HCl 240 mg capsule,extended release 24hr See Rx Instructions .ROUTE .COMPLEX Qty: 180 1RF Dose Instruction: TAKE 1 CAPSULE BY MOUTH TWICE DAILY FOR BLOOD PRESSURE Rx Instructions: TAKE 1 CAPSULE BY MOUTH TWICE DAILY FOR BLOOD PRESSURE lisinopril 40 mg tablet 40 mg PO DAILY Qty: 90 3RF cetirizine 10 mg tablet See Rx Instructions .ROUTE .COMPLEX Qty: 90 3RF Dose Instruction: TAKE 1 TABLET BY MOUTH ONCE DAILY NEEDED FOR ALLERGY SYMPTOMS Rx Instructions: TAKE 1 TABLET BY MOUTH ONCE DAILY NEEDED FOR ALLERGY SYMPTOMS cholecalciferol (vitamin D3) 50 mcg (2,000 unit) capsule 50 mcg PO DAILY Qty: 90 3RF atorvastatin 80 mg tablet See Rx Instructions .ROUTE .COMPLEX Qty: 90 3RF Dose Instruction: Take 1 tablet by mouth once daily Rx Instructions: Take 1 tablet by mouth once daily bumetanide 2 mg tablet See Rx Instructions .ROUTE .COMPLEX Qty: 60 1RF Dose Instruction: TAKE 1 TABLET BY MOUTH TWICE DAILY - PLEASE ESTABLISH WITH NEW PROVIDER FOR MORE REFILLS Rx Instructions: TAKE 1 TABLET BY MOUTH TWICE DAILY omeprazole 40 mg capsule,delayed release(DR/EC) See Rx Instructions .ROUTE .COMPLEX Qty: 90 3RF Dose Instruction: Take 1 capsule by mouth once daily Rx Instructions: Take 1 capsule by mouth once daily Eliquis 5 mg tablet See Rx Instructions .ROUTE .COMPLEX Qty: 180 3RF Dose Instruction: Take 1 tablet by mouth twice daily Rx Instructions: Take 1 tablet by mouth twice daily metformin 500 mg tablet extended release 24 hr 1,000 mg PO BID Referrals Follow up/Referrals: José Arreaga MD [Primary Care Provider, Family Practice] - See instructions Activity Restrictions/Add. Instructions Additional Instructions/Restrictions: At this time it was felt you are safe to be discharged home. If new or worsening symptoms please do not hesitate to return the emergency department. Please take your medications as prescribed and if your symptoms persist please follow-up with your family doctor for continued evaluation. Clinical Impressions Clinical Impression: Neck and shoulder pain Print Language Print Language: Kiswahili Discharge ED Provider: Dong Walker General Adult HPI <Darling Justin (ED), [employer] DIRECTOR - Last Filed: 08/28/25 18:50> General Chief complaint: PAIN Stated complaint: back and neck pain, stiff neck , headache x 14 day Time Seen by Provider: 08/28/25 16:06 Mode of Arrival: Ambulatory Source of Information: Patient Description of Symptoms (Recalled from ER Triage Doc. by RN): PT presents with c/o stiff neck and headache for the last 2 weeks. Pt denies any fever, states he has been nauseous for around3 weeks, but states he thinks it is due to a change in his diabetic medication. History of Present Illness HPI narrative: 64-year-old male presents to the ED today with complaint of stiff neck and headache off and on for 2 weeks. Patient states he has no visual changes. He woke up 1 day 2 weeks ago with neck pain that moves down his shoulders it started on the right side but now its moved to his left side. He says he has pain around his eyes. No fever, no chills he does have nausea and diarrhea. He thinks this is because of his sugar medication. He is on blood thinner and had a fall a week after he started with this headache and neck pain. He does take blood thinners for A-fib, concern for head bleed after the fall back out of the chair. Related Data Home Medications ?Medication ?Instructions ?Recorded ?Confirmed multivitamin 1 tab PO QAM Supplement 02/1307/04/25 metformin 500 mg tablet,extended 1,000 mg PO BID Diabe remedios 12/29/22 07/04/25 release 24 hr icosapent ethyl 1 gram capsule 2 g PO BID 07/12/2302/20 ketoconazole 2 % topical cream applic topical 03/08/24 07/04/25 ketoconazole 2 % shampoo topical 09/18/24 07/04/25 empagliflozin 10 mg tablet 10 mg PO DAILY Type 2 diabe remedios 11/05/24 07/04/25 (Jardiance) blood-glucose sensor (Dexcom G7 #1 ea 05/08/25 5 Sensor device) semaglutide 2 mg/dose (8 mg/3 mL) mg SQ 05/08/2507/04 subcutaneous pen injector (Ozempic) insulin glargine 100 unit/mL (3 33 unit SQ QAM Diabete s 05/15/25 07/04/25 mL) subcutaneous pen pen needle, diabetic 31 gauge x #1,200 ea 06/05/2502/20/16 (Ultra-Fine Pen Needle) Previous Rx's ?Medication ?Instructions ?Recorded ipratropium 0.5 mg-albuterol 3 mg 3 ml inhalation QID PRN shortness 08/18/21 (2.5 mg base)/3 mL nebulization of breath or wheezing #180 mL soln spironolactone 25 mg tablet See Rx Instructions .Route 04/02/24 .COMPLEX #180 tabs albuterol sulfate 90 mcg/actuation 1 inh inhalation QI D PRN shortness 05/03/24 aerosol inhaler of breath or wheezing 90 day s #8.5 grams azelastine 137 mcg (0.1 %) nasal 2 spray intranasal BI D allergies 05/03/24 spray 90 days #30 mL montelukast 10 mg tablet 10 mg PO DAILY #90 tabs 01/19 (Singulair) metoprolol succinate 50 mg See Rx Instructions .Route 07/09/24 tablet,extended release 24 hr .COMPLEX #90 tabs diltiazem HCl 240 mg See Rx Instructions .Route 0 10/25/24 capsule,extended release 24 hr .COMPLEX #180 caps lisinopril 40 mg tablet 40 mg PO DAILY #90 tabs 10/28 04/22 ammonium lactate 12 % topical cream 1 applic topical B ID dry skin, 04/16/25 callus care 30 days #385 grams cetirizine 10 mg tablet See Rx Instructions .Route 0 01/04/25 .COMPLEX #90 tabs cholecalciferol (vitamin D3) 50 50 mcg PO DAILY #90 ca ps 01/20/ mcg (2,000 unit) capsule atorvastatin 80 mg tablet See Rx Instructions .Route 0 01/22/25 .COMPLEX #90 tabs bumetanide 2 mg tablet See Rx Instructions .Route 0 02/25/25 .COMPLEX #60 tabs Diabetic Shoes (DME) #1 ea 03/20/25 omeprazole 40 mg capsule,delayed See Rx Instructions . Route 04/08/25 release .COMPLEX #90 caps fluticasone 500 mcg-salmeterol 50 1 inh inhalation BID #180 ea 05/15/25 mcg/dose blistr powdr for inhalation (Advair Diskus) fluticasone propionate 50 1 spray intranasal BID 90 da ys #48 05/15/25 mcg/actuation nasal grams spray,suspension (Flonase Allergy Relief) levofloxacin 750 mg tablet 750 mg PO DAILY #7 tabs apixaban 5 mg tablet (Eliquis) See Rx Instructions .Ro jewel 07/30/25 .COMPLEX #180 tabs lidocaine 4 % topical patch 1 patch topical DAILY PRN pain #10 08/28/25 (Aspercreme (lidocaine)) ea methocarbamol 500 mg tablet 1,000 mg (2 x 500 mg) PO Q 8H PRN 08/28/25 muscle pain and spasm #30 tabs Allergies Allergy/AdvReac Type Severity Reaction Status Date / Time Penicillins Allergy Severe SOA Verified 07/04/25 13:22 isosorbide (From Imdur) AdvReac Intermediate Headache Verified 07/04/25 13:22 PFS <Darling Justin (ED), [employer] DIRECTOR - Last Filed: 08/28/25 18:50> PFS Disclaimer: The information contained in this section may have been updated after the patient was seen, as this information can be updated by other users. Medical History Encounter for screening for malignant neoplasm of respiratory organs Preop examination Chest pain URI, acute Knee pain Paroxysmal A-fib Encounter for screening for malignant neoplasm of lung in current smoker with 30 pack year history or greater Allergic rhinitis Moderate persistent asthma COPD (chronic obstructive pulmonary disease) History of smoking 30 or more pack years Elevated IgE level Seasonal allergies Shortness of breath Dyspnea on exertion Diabetic foot PAD (peripheral artery disease) Vitamin D deficiency Edema CAD (coronary artery disease) Surgical History History of colonoscopy History of arthroscopic knee surgery Family History Other Coronary artery disease Diabetes Heart attack Hyperlipidemia Hypertension Social History Smoking Status: Former smoker tobacco type: cigarettes packs per day: 0 smoking status stop date: 2017 alcohol intake: never substance use type: denies use current occupational status: disabled Travel in the last 8 weeks?: None household members: spouse and children housing: house caffeine: Yes Have you lived/traveled outside [place] in past 30 days?: No Contact w/someone who lives/traveled outside US past 30 days?: No Exposure to someone with infectious disease in past 14 days?: No Do you have a fever (greater than 100.4 F or 38 C)?: No Have you tested positive for COVID-19?: No Exposed to someone with COVID-19 in past 14 days?: No Do you have a sore throat?: No Do you have a cough?: No Do you have any weakness?: No Do you have any diarrhea?: No Are you experiencing any unusual bleeding?: No Do you have any muscle aches/pain?: No Do you have any abdominal pain?: No Are you experiencing loss of taste or smell?: No Other Medical History Have you received the Flu Vaccine for this season: Yes Have you received the Pneumonia Vaccine: No <Darling Justin (ED), [employer] DIRECTOR - Last Filed: 08/28/25 18:50> ROS Obtained: Yes Systems reviewed as appropriate & no additional complaints except as documented Constitutional Constitutional: Reports as per HPI Physical Exam <Darling Justin (ED), [employer] DIRECTOR - Last Filed: 08/28/25 18:50> General General appearance: alert Head Head exam: normocephalic Eye Eye exam: Present PERRL ENT ENT exam: Present normal oropharynx and mucous membranes moist Neck Neck exam: Present normal inspection, full ROM and tenderness (More in his trap area) Respiratory Respiratory exam: Present normal lung sounds bilaterally Cardiovascular Cardiovascular exam: Present regular rate, normal rhythm, +S1 and +S2 Extremities Exam Extremities exam: Present full ROM (Some pain in his neck when he moves his arms) Back Exam Back exam: Present tenderness (Over trapezius area) Neurological Exam Neurological exam: Present alert and oriented X3 Skin Skin exam: Present warm and dry Medical Decision Making <Darling Justin (ED), [employer] DIRECTOR - Last Filed: 08/28/25 18:50> Medical Records Screening: Per USPSTF and CDC recommendations, given the prevalence of disease in our region, it is our hospital?s policy to screen for HIV and viral Hepatitis for all patients aged 18 and over and those with ongoing risk factors. Michael Inquiry Pt receiving controlled substance: No Michael was queried for this patient: No Vital Signs: 08/28/25 16:31 Temperature 98.4 F Temperature Source Oral Pulse Rate [Right] 71 Respiratory Rate 18 Blood Pressure [Right Arm] 122/66 Blood Pressure Mean [Right Arm] 84 Blood Pressure Source [Right Arm] Automatic Cuff Blood Pressure Position [Right Arm] Sitting 02 Sat by Pulse Oximetry 97 Oxygen Delivery Method Room Air Lab Data Lab Results 08/28/25 17:18: SARS-CoV-2 (PCR) Not detected, Influenza A Untype (PCR) Not detected, Influenza Type B (PCR) Not detected 08/28/25 17:58: WBC 10.5, RBC 5.61, Hgb 17.2, Hct 50.3, MCV 89.7, MCH 30.7, MCHC 34.2, RDW 13.8, Plt Count 159, MPV 10.9 H, Neut % (Auto) 55.6, Lymph % (Auto) 33.4, [place] % (Auto) 8.0, Eos % (Auto) 2.0, Baso % (Auto) 0.7, Neut # (Auto) 5.9, Lymph # (Auto) 3.5, [place] # (Auto) 0.8, Eos # (Auto) 0.2, Baso # (Auto) 0.1, ESR 8, Sodium 138, Potassium 4.3, Chloride 100, Carbon Dioxide 27, Anion Gap 15.3 H, BUN 23 H, Creatinine 1.30 H, Estimated Creat Clear 110, Estimated GFR 56 L, Est GFR ( Amer) 67, Glucose 120 H, Calcium 10.0, Total Bilirubin 0.7, AST 56, ALT 59, Alkaline Phosphatase 75, C-Reactive Protein 8.5 H, Total Protein 8.8 H, Albumin 4.9, Globulin 3.9 H, Albumin/Globulin Ratio 1.3 08/28/25 17:58 08/28/25 17:58 Orders (Tests/Meds): ED MEDICATIONS Generic Name Dose Route Start Last Admin Trade Name Freq PRN Reason Stop Dose Admin Sodium Chloride 10 ml 08/28/25 18:53 08/28/25 18:55 Sodium Chloride 0.9% 10ml Syr (Rad Only) IV 09/27/25 18:52 10 ml NEEDED PRN Administration Maintain IV Site Discontinued Medications Generic Name Dose Route Start Last Admin Trade Name Freq PRN Reason Stop Dose Admin Acetaminophen 1,000 mg 08/28/25 16:42 08/28/25 18:10 Acetaminophen 1,000mg/100ml Vial IV 08/28/25 16:43 1,000 mg ONCE ONE Administration Diphenhydramine HCl 25 mg 08/28/25 16:42 08/28/25 18:10 Diphenhydramine 50mg/Ml Vial IV 08/28/25 16:43 25 mg ONCE ONE Administration Iopamidol 80 ml 08/28/25 18:53 08/28/25 18:55 Iopamidol-370 (76%);100ml Bottle IV 08/28/25 18:54 80 ml ONCE ONE Administration Ketorolac Tromethamine 30 mg 08/28/25 16:42 08/28/25 18:09 Ketorolac 30mg/Ml Vial IV 08/28/25 16:43 30 mg ONCE ONE Administration Ondansetron HCl 4 mg 08/28/25 16:42 08/28/25 18:09 Ondansetron 4mg/2ml Vial IV 08/28/25 16:43 4 mg ONCE ONE Administration Orphenadrine Citrate 60 mg 08/28/25 16:42 Orphenadrine Citrate 60mg/2ml Vial IV 08/28/25 16:43 ONCE ONE Sodium Chloride 50 ml 08/28/25 18:53 08/28/25 18:55 0.9 % Sodium Chloride 50 Ml Vial IV 08/28/25 18:54 50 ml ONCE ONE Administration ORDERS Category Date Time Status CT angio head Stat Cat Scan 08/28/25 16:[address] angio neck Stat Cat Scan 08/28/25 16:[address] cervical spine wo con Stat Cat Scan 08/28/25 16:[address] head/brain wo con Stat Cat Scan 08/28/25 16:48 Completed CBC [Complete Blood Count Auto Diff] Stat Lab 08/28/25 17:58 Completed CRP [C-Reactive Protein] Stat Lab 08/28/25 17:58 Completed Comprehensive Metabolic Panel Stat Lab 08/28/25 17:58 Completed ESR [Erythrocyte Sedimentation Rate] Stat Lab 08/28/25 17:58 Completed Rapid PCR Covid and Flu A/B Stat Lab 08/28/25 17:18 Completed Medical Decision Narrative: Ipatient is a 64-year-old male presenting to the emergency department for evaluation of pain in his neck, headache and fall out of the back of a chair 1 week ago. Patient is hemodynamically stable and nontoxic-appearing upon arrival, afebrile. Differential diagnosis includes neck sprain, strain, muscle spasm, viral illness, headache, migraine, head bleed, among others. Workup will be conducted with hematologic labs, specific imaging. Initial inventions include analgesics. 1849 we are still awaiting labs and CT results I am giving report to Dr. Walker. Patient is stable at this time. <Dong Walker MD - Last Filed: 08/28/25 19:52> Vital Signs: 08/28/25 16:31 Temperature 98.4 F Temperature Source Oral Pulse Rate [Right] 71 Respiratory Rate 18 Blood Pressure [Right Arm] 122/66 Blood Pressure Mean [Right Arm] 84 Blood Pressure Source [Right Arm] Automatic Cuff Blood Pressure Position [Right Arm] Sitting 02 Sat by Pulse Oximetry 97 Oxygen Delivery Method Room Air Lab Data Lab Results 08/28/25 17:18: SARS-CoV-2 (PCR) Not detected, Influenza A Untype (PCR) Not detected, Influenza Type B (PCR) Not detected 08/28/25 17:58: WBC 10.5, RBC 5.61, Hgb 17.2, Hct 50.3, MCV 89.7, MCH 30.7, MCHC 34.2, RDW 13.8, Plt Count 159, MPV 10.9 H, Neut % (Auto) 55.6, Lymph % (Auto) 33.4, [place] % (Auto) 8.0, Eos % (Auto) 2.0, Baso % (Auto) 0.7, Neut # (Auto) 5.9, Lymph # (Auto) 3.5, [place] # (Auto) 0.8, Eos # (Auto) 0.2, Baso # (Auto) 0.1, ESR 8, Sodium 138, Potassium 4.3, Chloride 100, Carbon Dioxide 27, Anion Gap 15.3 H, BUN 23 H, Creatinine 1.30 H, Estimated Creat Clear 110, Estimated GFR 56 L, Est GFR ( Amer) 67, Glucose 120 H, Calcium 10.0, Total Bilirubin 0.7, AST 56, ALT 59, Alkaline Phosphatase 75, C-Reactive Protein 8.5 H, Total Protein 8.8 H, Albumin 4.9, Globulin 3.9 H, Albumin/Globulin Ratio 1.3 Orders (Tests/Meds): ED MEDICATIONS Generic Name Dose Route Start Last Admin Trade Name Tawny PRN Reason Stop Dose Admin Sodium Chloride 10 ml 08/28/25 18:53 08/28/25 18:55 Sodium Chloride 0.9% 10ml Syr (Rad Only) IV 09/27/25 18:52 10 ml NEEDED PRN Administration Maintain IV Site Discontinued Medications Generic Name Dose Route Start Last Admin Trade Name Freq PRN Reason Stop Dose Admin Acetaminophen 1,000 mg 08/28/25 16:42 08/28/25 18:10 Acetaminophen 1,000mg/100ml Vial IV 08/28/25 16:43 1,000 mg ONCE ONE Administration Diphenhydramine HCl 25 mg 08/28/25 16:42 08/28/25 18:10 Diphenhydramine 50mg/Ml Vial IV 08/28/25 16:43 25 mg ONCE ONE Administration Iopamidol 80 ml 08/28/25 18:53 08/28/25 18:55 Iopamidol-370 (76%);100ml Bottle IV 08/28/25 18:54 80 ml ONCE ONE Administration Ketorolac Tromethamine 30 mg 08/28/25 16:42 08/28/25 18:09 Ketorolac 30mg/Ml Vial IV 08/28/25 16:43 30 mg ONCE ONE Administration Ondansetron HCl 4 mg 08/28/25 16:42 08/28/25 18:09 Ondansetron 4mg/2ml Vial IV 08/28/25 16:43 4 mg ONCE ONE Administration Orphenadrine Citrate 60 mg 08/28/25 16:42 Orphenadrine Citrate 60mg/2ml Vial IV 08/28/25 16:43 ONCE ONE Sodium Chloride 50 ml 08/28/25 18:53 08/28/25 18:55 0.9 % Sodium Chloride 50 Ml Vial IV 08/28/25 18:54 50 ml ONCE ONE Administration ORDERS Category Date Time Status CT angio head Stat Cat Scan 08/28/25 16:[address] angio neck Stat Cat Scan 08/28/25 16:[address] cervical spine wo con Stat Cat Scan 08/28/25 16:[address] head/brain wo con Stat Cat Scan 08/28/25 16:48 Completed CBC [Complete Blood Count Auto Diff] Stat Lab 08/28/25 17:58 Completed CRP [C-Reactive Protein] Stat Lab 08/28/25 17:58 Completed Comprehensive Metabolic Panel Stat Lab 08/28/25 17:58 Completed ESR [Erythrocyte Sedimentation Rate] Stat Lab 08/28/25 17:58 Completed Rapid PCR Covid and Flu A/B Stat Lab 08/28/25 17:18 Completed Medical Decision Narrative: Ipatient is a 64-year-old male presenting to the emergency department for evaluation of pain in his neck, headache and fall out of the back of a chair 1 week ago. Patient is hemodynamically stable and nontoxic-appearing upon arrival, afebrile. Differential diagnosis includes neck sprain, strain, muscle spasm, viral illness, headache, migraine, head bleed, among others. Workup will be conducted with hematologic labs, specific imaging. Initial inventions include analgesics. 1849 we are still awaiting labs and CT results I am giving report to Dr. Walker. Patient is stable at this time. Dong Walker: Upon assumption of care patient is hemodynamically stable. Workup reviewed by me, hematologic labs are nonactionable no significant leukocytosis no transfusable anemia no PAYAL or critical electrolyte abnormality. Noncontrasted CT scan of the head informally visualized by me no acute large intracerebral hemorrhage or midline shift. Formal read on all CTs of head and neck no acute intracranial abnormality no acute traumatic pathology, no critical stenosis or occlusion. Upon repeat evaluation and further questioning mainly patient has pain with movement that is in his right neck that shoots into his shoulder. Throughout conversation patient is ranging his neck I have no concern for meningismus specifically he is well-appearing and I have no concern for meningitis based on history and physical exam this is likely radicular in nature in my opinion and fortunately no traumatic bleed or traumatic cervical artery dissection given this I feel that all emergent pathology has been ruled out at this time and patient is appropriate for outpatient management will be discharged with a course of muscle relaxers and was given return precautions. Critical Care <Darling Justin (ED), [employer] DIRECTOR - Last Filed: 08/28/25 18:50> Critical Care Time Critical Care Time: No
--- NOTE | 2025-08-28 16:48 | CT_ITS ---
PROCEDURE INFORMATION: Exam: CT Head Without Contrast Exam date and time: 08/28/2025 6:53 PM Age: 64 years old Clinical indication: Injury or trauma; Fall; Other: On blood thinner; Additional info: Fall on blood thinner TECHNIQUE: Imaging protocol: Computed tomography of the head without contrast. Radiation optimization: All CT scans at this facility use at least one of these dose optimization techniques: automated exposure control; mA and/or kV adjustment per patient size (includes targeted exams where dose is matched to clinical indication); or iterative reconstruction. COMPARISON: No relevant prior studies available. FINDINGS: Brain: Normal. No hemorrhage. Unremarkable white matter. No mass effect. Cerebral ventricles: No ventriculomegaly. Paranasal sinuses: Visualized sinuses are unremarkable. No fluid levels. Mastoid air cells: Visualized mastoid air cells are well aerated. Bones: Unremarkable. No acute fracture. Soft tissues: Unremarkable. IMPRESSION: No acute intracranial abnormality.
--- NOTE | 2025-08-28 16:48 | CT_ITS ---
PROCEDURE INFORMATION: Exam: CTA Neck Without And With Contrast Exam date and time: 08/28/2025 6:57 PM Age: 64 years old Clinical indication: Injury or trauma; Fall; Other: On blood thinner; Additional info: Fall on blood thinner TECHNIQUE: Imaging protocol: Computed tomographic angiography of the neck without and with contrast. Exam focused on the cervical segments of the vasculature. 3D rendering (Not supervised by radiologist): MIP and/or 3D reconstructed images were created by the technologist. Radiation optimization: All CT scans at this facility use at least one of these dose optimization techniques: automated exposure control; mA and/or kV adjustment per patient size (includes targeted exams where dose is matched to clinical indication); or iterative reconstruction. Contrast material: ISOVUE; Contrast volume: 80 ml; Contrast route: INTRAVENOUS (IV); COMPARISON: CT CERVICAL SPINE WO CON 08/28/2025 6:55 PM FINDINGS: Right common carotid artery: No stenosis. No dissection or occlusion. Right internal carotid artery: No stenosis of the extracranial segment. No dissection or occlusion. Right external carotid artery: No occlusion or stenosis of the origin. Left common carotid artery: No stenosis. No dissection or occlusion. Left internal carotid artery: No stenosis of the extracranial segment. No dissection or occlusion. Left external carotid artery: No occlusion or stenosis of the origin. Right vertebral artery: No stenosis. No dissection or occlusion. Left vertebral artery: No stenosis. No dissection or occlusion. Soft tissues: Normal. No significant soft tissue swelling. Bones/joints: No acute fracture. IMPRESSION: No stenosis or occlusion. REFERENCES: NASCET CRITERIA. The degree of stenosis in the cervical segment of the internal carotid artery is based on NASCET criteria. Normal is no stenosis. Mild is less than 50% stenosis. Moderate is 50-69% stenosis. Severe is 70% to 99% stenosis. Total occlusion is no detectable patent lumen.
--- NOTE | 2025-08-28 16:48 | CT_ITS ---
PROCEDURE INFORMATION: Exam: CT Cervical Spine Without Contrast Exam date and time: 08/28/2025 6:55 PM Age: 64 years old Clinical indication: Injury or trauma; Fall; Other: On blood thinner; Additional info: Fall on blood thinner TECHNIQUE: Imaging protocol: Computed tomography of the cervical spine without contrast. Radiation optimization: All CT scans at this facility use at least one of these dose optimization techniques: automated exposure control; mA and/or kV adjustment per patient size (includes targeted exams where dose is matched to clinical indication); or iterative reconstruction. COMPARISON: CT HEAD/BRAIN WO CON 08/28/2025 6:53 PM FINDINGS: Bones: No acute fracture. Normal alignment. No significant disc bulge or herniation. No severe spinal canal stenosis. No significant neural foraminal narrowing. Lungs: Lung apices are normal. Soft tissues: Unremarkable. IMPRESSION: No acute cervical spine fracture.
--- NOTE | 2025-08-28 16:48 | CT_ITS ---
PROCEDURE INFORMATION: Exam: CTA Head With Contrast, Arteriography Exam date and time: 08/28/2025 6:57 PM Age: 64 years old Clinical indication: Injury or trauma; Fall; Blunt trauma; Head and neck; Additional info: Fall on blood thinner TECHNIQUE: Imaging protocol: Computed tomographic angiography of the head with contrast. Exam focused on the arteries. 3D rendering (Not supervised by radiologist): MIP and/or 3D reconstructed images were created by the technologist. Radiation optimization: All CT scans at this facility use at least one of these dose optimization techniques: automated exposure control; mA and/or kV adjustment per patient size (includes targeted exams where dose is matched to clinical indication); or iterative reconstruction. Contrast material: ISO; Contrast volume: 80 ml; Contrast route: INTRAVENOUS (IV); COMPARISON: CT HEAD/BRAIN WO CON 08/28/2025 6:53 PM FINDINGS: ANTERIOR CIRCULATION: Right internal carotid artery: Intracranial segment is patent with no significant stenosis. No aneurysm. Right middle cerebral artery: No occlusion or significant stenosis. No aneurysm. Right anterior cerebral artery: No occlusion or significant stenosis. No aneurysm. Left internal carotid artery: Intracranial segment is patent with no significant stenosis. No aneurysm. Left middle cerebral artery: No occlusion or significant stenosis. No aneurysm. Left anterior cerebral artery: No occlusion or significant stenosis. No aneurysm. POSTERIOR CIRCULATION: Right vertebral artery: No occlusion or significant stenosis. No aneurysm. Left vertebral artery: No occlusion or significant stenosis. No aneurysm. Basilar artery: No occlusion or significant stenosis. No aneurysm. Right posterior cerebral artery: No occlusion or significant stenosis. No aneurysm. Left posterior cerebral artery: No occlusion or significant stenosis. No aneurysm. Brain: No definite mass, mass effect, or midline shift. Cerebral ventricles: No ventriculomegaly. Bones/joints: Unremarkable. No acute fracture. Soft tissues: Unremarkable. IMPRESSION: No large vessel stenosis or occlusion.
[2025-08-28 17:23] LABS: Coronavirus 19, PCR Not Detected (NotDetected); Influenza A, PCR Not Detected (NotDetected); Influenza B, PCR Not Detected (NotDetected)
[2025-08-28] MEDS: ONDANSETRON 4MG/2ML VIAL 4 MG IV (18:09)
[2025-08-28] MEDS: KETOROLAC 30MG/ML VIAL 30 MG IV (18:09)
[2025-08-28] MEDS: ACETAMINOPHEN 1,000MG/100ML VIAL 1000 MG IV (18:10)
[2025-08-28 18:35] LABS: Hematocrit 50.3 % (42.0-52.0); Hemoglobin 17.2 g/dL (14.1-18.0); Immature Granulocytes % 0.3 %; Mean Corpuscular HGB Conc 34.2 g/dL (31.8-35.4); Mean Corpuscular Hemoglobin 30.7 pg (27.0-31.2); Mean Corpuscular Volume 89.7 fl (80-94); Nucleated Red Blood Cells % 0 %; Platelet Count 159 K/mm3 (142-424); Red Blood Count 5.61 M/mm3 (4.60-6.20); Red Cell Distribution Width-SD 44.7 fL; White Blood Count 10.5 K/mm3 (4.8-10.8)
[2025-08-28 18:50] LABS: Alanine Aminotransferase 59 U/L (12-78); Albumin Level 4.9 g/dl (3.5-5.0); Albumin/Globulin Ratio 1.3 (1.1-1.8); Alkaline Phosphatase 75 U/L (38-126); Anion Gap 15.3 mEq/L (5-15); Aspartate Amino Transferase 56 U/L (17-59); Bilirubin,Total 0.7 mg/dl (0.2-1.3); Blood Urea Nitrogen 23 mg/dl (9-20); Calcium 10.0 mg/dl (8.4-10.2); Carbon Dioxide 27 mmol/L (22.0-30.0); Chloride 100 mmol/L (98-107); Creatinine Clearance Estimated 110 mL/min (50-200); Creatinine,Serum 1.30 mg/dl (0.66-1.25); Estimated Glomerular Filt Rate 56 ml/min (>60); GFR (African American) 67 ML/MIN (>60); Globulin 3.9 g/dL (1.3-3.2); Glucose 120 mg/dl (74-100); Potassium 4.3 mmoL/L (3.5-5.1); Sodium 138 mmol/L (136-145); Total Protein,Serum 8.8 g/dl (6.3-8.2)
[2025-08-28 18:55] LABS: C-Reactive Protein 8.5 mg/L (0-4)
[2025-08-28] MEDS: SODIUM CHLORIDE 0.9% 10ML SYR (RAD ONLY) 10 ML IV (18:55)
[2025-08-28] MEDS: 0.9 % SODIUM CHLORIDE 50 ML VIAL IV (18:55)
[2025-08-28] MEDS: IOPAMIDOL-370 (76%);100ML BOTTLE 80 ML IV (18:55)
[2025-08-28 19:57] VITALS: BP 132/77; PULSE 68; RESP 18; TEMP 36.6; O2SAT 98
== END 2025-08-28 20:01 | disposition home or self-care (01) ==
PROVIDERS: Nurse Practitioner; Emergency Provider Emergency Medicine; PCP Family Medicine
DX: M54.2 Cervicalgia (principal); M25.511 Pain in right shoulder; R51.9 Headache, unspecified; W19.XXXA Unspecified fall, initial encounter
CPT/HCPCS: 70450; 70496; 70498; 72125; 80053; 85025; 85651; 86140; 87636; 96374; 96375; 99282; 99285; J0131; J1200; J1885; J2405; Q9967